=== PATIENT | female | born 1965 | race Caucasian/White ===

== ENCOUNTER 2018-05-01 03:02 | Emergency (ER) | payer OTHER, SELFPAY ==
[2018-05-01 03:10] VITALS: BP 171/91; PULSE 87; RESP 20; TEMP 36.1; O2SAT 97; BMI 31.3
[2018-05-01] MEDS: ONDANSETRON 4 MG/2 ML INJ IV ×2 (03:50→04:37)
[2018-05-01] MEDS: PANTOPRAZOLE 40 MG VIAL IV (03:50)
[2018-05-01] MEDS: HYDROMORPHONE 1 MG INJ 0.5 MG IV ×2 (03:50→05:40)
[2018-05-01 03:51] LABS: Add Manual Diff / Slide Review NO; Basophils Absolute Auto 0 /uL (0-100); Basophils Percent Auto 0.5 % (0-2); Eosinophils Absolute Auto 0 /uL (0-450); Hematocrit 47.5 % (36-46); Hemoglobin 16.5 g/dL (12.0-16.0); Lymphocytes Absolute Auto 700 /uL (1100-4500); Lymphocytes Percent Auto 8.2 % (25-40); Mean Corpuscular HGB Conc 34.7 % (30-36); Mean Corpuscular Hemoglobin 30.2 PG (26-34); Monocytes Absolute Auto 600 /uL (0-900); Monocytes Percent Auto 6.9 % (3-14); Neutrophils Absolute Auto 7600 /uL (1500-7000); Neutrophils Percent Auto 84.4 % (50-75); Platelet Count 269 X10^3/uL (150-400); Red Blood Cell Count 5.45 X10^6/uL (4.0-5.2); Red Cell Distribution Width 12.8 % (11.6-14.8)
[2018-05-01] MEDS: SODIUM CHLORIDE 0.9% 1,000 ML 1000 ML IV ×2 (03:51→04:53)
[2018-05-01 03:53] LABS: Alanine Aminotransferase 25 IU/L (9-52); Albumin 5.1 g/dL (3.5-5.0); Albumin Globulin Ratio 1.5 (1.0-2.8); Alkaline Phosphatase 104 U/L (38-126); Aspartate Aminotransferase 22 IU/L (14-36); BUN Creatinine Ratio 12.5 (6-22); Bilirubin Total 0.6 mg/dL (0.2-1.3); Blood Urea Nitrogen 10 mg/dL (7-17); Calcium 10.1 mg/dL (8.4-10.2); Carbon Dioxide 18 mmol/L (22-32); Chloride 109 mmol/L (98-107); Estimated Glomerular Filt Rate > 60.0 mL/min (>60); Globulin 3.5 g/dL (1.7-4.1); Glucose 174 mg/dL (70-100); HEMOLYSIS 18 (0-50); Lipase 99 U/L (23-300); Potassium 3.5 mmol/L (3.4-5.1); Sodium 145 mmol/L (137-145); Total Protein 8.6 g/dL (6.3-8.2)
[2018-05-01 04:22] VITALS: BP 151/74; PULSE 72; RESP 22; TEMP 36.8; O2SAT 100
--- NOTE | 2018-05-01 04:27 | ED.ABDPAIN ---
HPI - Abdominal Pain General Chief Complaint: Abdominal Pain Stated Complaint: vomiting, thinks she has norovirus Time Seen by Provider: 05/01/18 03:31 Source: patient Mode of arrival: ambulatory Limitations: no limitations History of Present Illness HPI narrative: PATIENT IS A 52-YEAR-OLD FEMALE WHO PRESENTS WITH SEVERE ABDOMINAL PAIN DIARRHEA AND VOMITING ONGOING FOR 2 DAYS. 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 She thinks that is what she has. She has vomited numerous times she has had numerous episodes of watery diarrhea. He she feels warm. Unable to keep anything down diffuse abdominal discomfort. MD complaint: abdominal pain Onset (ago): day(s) Pain Consistency: intermittent Location: diffuse Quality: cramping and stabbing Migration to: no migration Relieving factors: nothing Exacerbating factors: eating Related Data Previous Rx's Medication Instructions Recorded hydrocodone-acetaminophen [[place]] 2 tab PO Q6-8H PRN #10 tab 05/01/18 ondansetron 4 mg PO Q6-8H PRN #10 tab 05/01/18 Allergies Allergy/AdvReac Type Severity Reaction Status Date / Time shellfish derived Allergy Intermediate Verified 05/01/18 04:21 [SHELLFISH DERIVED] codeine [CODEINE] Allergy Unknown Verified 05/01/18 04:21 Penicillins [PENICILLINS] Allergy Unknown Verified 05/01/18 04:21 Tetracyclines [TETRACYCLINES] Allergy Unknown Verified 05/01/18 04:21 IV CONTRAST Allergy Intermediate Uncoded 05/01/18 04:21 Review of Systems Review of Systems GENERAL: Denies chills, fatigue, malaise, fever, sweats, travel HEENT: Denies sinus pain, ear pain, sore throat, difficulty swallowing, neck pain RESPIRATORY: Denies dyspnea, cough, wheezing, hemoptysis, sputum. CARDIOVASCULAR: Denies chest pain, palpitations, orthopnea, edema GASTROINTESTINAL: See HPI : Denies dysuria, frequency, incontinence, hematuria, urinary retention, flank pain. MUSCULOSKELETAL: Denies weakness, joint pain, or bony pain SKIN: No rash, no erythema, no pruritus NEUROLOGIC: Denies weakness, dizziness, headache, numbness, change in speech, confusion PSYCHIATRIC: No concerning psychosocial issues. 12 point review of systems is negative except for those stated above and HPI Exam Initial Vital Signs Initial Vital Signs: Vital Signs Temperature 97 F L 05/01/18 03:10 Pulse Rate 87 05/01/18 03:10 Respiratory Rate 20 05/01/18 03:10 Blood Pressure 171/91 H 05/01/18 03:10 Pulse Oximetry 97 05/01/18 03:10 GENERAL: Moaning appears in pain dry heaving HEENT: Head atraumatic,EOMI, pupils reactive, dry mucous membranes CARDIOVASCULAR: Regular rate and rhythm without murmurs, rubs or gallops. RESPIRATORY: Breath sounds equal bilaterally, no wheezes rales or rhonchi. ABDOMEN: Soft, diffuse tenderness no guarding or rebound no distension : No CVA tenderness EXTREMITIES: Normal range of motion, no clubbing or edema. Neurovascularly intact NEUROLOGICAL: Alert and oriented x4.Normal gait and speech. Cranial nerves II through XII grossly intact. SKIN: Warm, dry, no laceration, no petechiae, no rashes or lesions. Course Orders Ordered: Discontinued Medications Hydrocodone Bitart/Acetaminophen (Vicodin Prepack) 1 bottle MISC SEEINSTR ONE Stop: 05/01/18 05:38 Last Admin: 05/01/18 06:49 Dose: 1 bottle Diphenhydramine HCl (Benadryl) 25 mg IV NOW ONE Stop: 05/01/18 06:02 Last Admin: 05/01/18 06:06 Dose: 25 mg Hydromorphone HCl (Dilaudid) 0.5 mg IV NOW ONE Stop: 05/01/18 03:42 Last Admin: 05/01/18 03:50 Dose: 0.5 mg Hydromorphone HCl (Dilaudid) 0.5 mg IV NOW ONE Stop: 05/01/18 05:40 Last Admin: 05/01/18 05:40 Dose: 0.5 mg Sodium Chloride (Normal Saline 0.9%) 1,000 mls @ 1,000 mls/hr IV CONT SHEFALI Last Infusion: 05/01/18 04:52 Dose: 1,000 mls/hr Admin: 05/01/18 03:51 Dose: 1,000 mls/hr Sodium Chloride (Normal Saline 0.9%) 1,000 mls @ 1,000 mls/hr IV BOLUS ONE Stop: 05/01/18 05:27 Last Infusion: 05/01/18 06:50 Dose: 1,000 mls/hr Admin: 05/01/18 04:53 Dose: 1,000 mls/hr Ketorolac Tromethamine (Toradol) 30 mg IV NOW ONE Stop: 05/01/18 04:29 Last Admin: 05/01/18 04:37 Dose: 30 mg Methylprednisolone (Solu-Medrol 125 Mg Vial) 125 mg IV NOW ONE Stop: 05/01/18 06:02 Last Admin: 05/01/18 06:06 Dose: 125 mg Ondansetron HCl (Zofran) 4 mg IV NOW ONE Stop: 05/01/18 03:42 Last Admin: 05/01/18 03:50 Dose: 4 mg Ondansetron HCl (Zofran) 4 mg IV NOW ONE Stop: 05/01/18 04:29 Last Admin: 05/01/18 04:37 Dose: 4 mg Ondansetron HCl (Zofran Odt Prepack) 1 bottle MISC SEEINSTR ONE Stop: 05/01/18 05:38 Last Admin: 05/01/18 06:49 Dose: 1 bottle Pantoprazole Sodium (Protonix) 40 mg IV NOW ONE Stop: 05/01/18 03:42 Last Admin: 05/01/18 03:50 Dose: 40 mg Vital Signs - 8 hr 05/01/18 03:10 05/01/18 04:22 05/01/18 05:00 Temperature 97 F L 98.2 F 98.2 F Pulse Rate 87 72 72 Respiratory Rate 20 22 22 Blood Pressure 171/91 H 171/91 H Blood Pressure [Right Arm] 151/74 H Pulse Oximetry 97 100 100 05/01/18 06:24 Temperature Pulse Rate 17 L Respiratory Rate 60 H Blood Pressure Blood Pressure [Right Arm] 120/69 Pulse Oximetry 96 MDM - Abdominal Pain Lab Data Attestation: I reviewed the patient's lab results. Result diagrams: 05/01/18 03:11 05/01/18 03:11 Lab Results 05/01/18 05/01/18 Range/Units 03:11 03:11 WBC 9.0 (4.5-11.0) X10^3/uL RBC 5.45 H (4.0-5.2) X10^6/uL Hgb 16.5 H (12.0-16.0) g/dL Hct 47.5 H (36-46) % MCV 87.0 (80-100) fL MCH 30.2 (26-34) PG MCHC 34.7 (30-36) % RDW 12.8 (11.6-14.8) % Plt Count 269 (150-400) X10^3/uL Neut % (Auto) 84.4 H (50-75) % Lymph % (Auto) 8.2 L (25-40) % [place] % (Auto) 6.9 (3-14) % Eos % (Auto) 0.0 L (2-4) % Baso % (Auto) 0.5 (0-2) % Neut # (Auto) 7600 H (9087-0164) /uL Lymph # (Auto) 700 L (6041-0414) /uL [place] # (Auto) 600 (0-900) /uL Eos # (Auto) 0 (0-450) /uL Baso # (Auto) 0 (0-100) /uL Sodium 145 (137-145) mmol/L Potassium 3.5 (3.4-5.1) mmol/L Chloride 109 H (98-107) mmol/L Carbon Dioxide 18 L (22-32) mmol/L BUN 10 (7-17) mg/dL Creatinine 0.80 (0.52-1.04) mg/dL Estimated GFR > 60.0 (>60) mL/min BUN/Creatinine Ratio 12.5 (6-22) Glucose 174 H (70-100) mg/dL Calcium 10.1 (8.4-10.2) mg/dL Total Bilirubin 0.6 (0.2-1.3) mg/dL AST 22 (14-36) IU/L ALT 25 (9-52) IU/L Alkaline Phosphatase 104 (38-126) U/L Total Protein 8.6 H (6.3-8.2) g/dL Albumin 5.1 H (3.5-5.0) g/dL Globulin 3.5 (1.7-4.1) g/dL Albumin/Globulin Ratio 1.5 (1.0-2.8) Lipase 99 (23-300) U/L ABG Data Interpretation: shift commander report: A normal caliber appendix no free air bowel obstruction or gross intestinal inflammation. Stable pair cardial cyst. Cholecystectomy and hysterectomy. MDM Narrative Medical decision making narrative: Pain is better after Dilaudid. No further dry heaving but still feeling some nauseated need 2nd dose of Zofran. Bicarb is 18 she has been a 2nd L of IV fluids. She is tolerating some small sips of water but pain definitely is intermittent. No episodes of diarrhea while in ED. She had a few small sips of water pain quickly came back and intensified moaning and in severe pain again. More Dilaudid at this time will do CT for further evaluation of abdominal pain. Discharge Plan Departure Patient Disposition: Home Clinical Impression: Gastroenteritis Discharge Date/Time: 05/01/18 06:54 Interventions: ED Discharge Assessment Last Done: 05/01/18 07:00 Instructions: DI for Bacterial Gastroenteritis -- Adult Activity Restrictions/Additional Instructions: 1) You have been diagnosed with gastroenteritis There CT was unremarkable. Blood work did show some mild dehydration 2) What to do: Drink frequent but small amounts of fluids. I recommend Gatorade or a Gatorade-like product, as it has small amounts of sugar and salts that improve fluid retention. 3) Take medications as directed ZOFRAN 4 MG EVERY 6-8 HOURS IF NEEDED FOR NAUSEA OR VOMITING NORCO 1-2 TABLETS EVERY 6 HR IF NEEDED FOR SEVERE PAIN 4) Follow up with your primary care provider in 2-3 days 5) Return to ER if you should have any new or worsening symptoms such as, unable to hold down fluids despite use of anti-nausea medications and the small volume oral rehydration strategy. CONTROLLED SUBSTANCE DISCHARGE (Narcotoic/benzodiazepine/Flexeril/Phenergan) 1. You have been prescribed narcotic medications, it does have acetaminophen/Tylenol/paracetamol in it so do not take extra Tylenol or Tylenol containing products 2. Please understand that we cannot provide further refills of narcotics, benzodiazepines or controlled substances through the ED and her pain management will need to be through your provider. 3. While on these medications you cannot drive or operate heavy machinery. 4. You cannot sign legal documents or perform any duties such as this. 5. As long as you're taking opiate pain medications he should also be taking a stool softener such as Colace, Dulcolax, MiraLAX or prune juice, to help avoid constipation. Prescriptions: New hydrocodone-acetaminophen [[place]] 5-325 mg tablet 2 tab PO Q6-8H PRN (Reason: pain) Qty: 10 RF: 0 ondansetron 4 mg tablet,disintegrating 4 mg PO Q6-8H PRN (Reason: nausea and vomiting) Qty: 10 RF: 0 Referrals: Lynda Sawant MD [Primary Care Provider] -
[2018-05-01] MEDS: KETOROLAC 60 MG/2 ML VIAL 30 MG IV (04:37)
[2018-05-01 05:00] VITALS: BP 171/91; PULSE 72; RESP 22; TEMP 36.8; O2SAT 100; BMI 31.3
--- NOTE | 2018-05-01 05:39 | DI.CT.S_ITS ---
PROCEDURE: CT ABDOMEN PELVIS W CON INDICATIONS: severe abdominal pain TECHNIQUE: After the administration of intravenous contrast, 5 mm thick sections acquired from the diaphragm to the symphysis. 5 mm coronal and sagittal reformats were acquired. For radiation dose reduction, the following was used: automated exposure control, adjustment of mA and/or kV according to patient size. COMPARISON: [facility], CT, ABDOMEN/PELVIS WITH CONTRAST, 09/10/2016, 5:41. FINDINGS: Image quality: Excellent. ABDOMEN: Lung bases: Lung bases are clear. Heart size is normal. There is a 4.4 x 3.9 cm in posterior right epicardial cyst which is unchanged when compared with the study dated 11/10/16. A small hiatal hernia. Solid organs: Liver is normal in size and enhancement. Gallbladder is surgically absent. Biliary system is non dilated. Pancreas enhances normally. Spleen is normal in size and enhancement. No adrenal nodules. Kidneys demonstrate normal size and enhancement, without hydronephrosis. Peritoneum and bowel: Bowel loops demonstrate normal wall thickness and caliber. The appendix is thin walled and gas filled. No free fluid or air. Nodes and vessels: No retroperitoneal or mesenteric adenopathy by size criteria. Aorta and inferior vena cava are normal in size. Miscellaneous: No ventral hernias. PELVIS: Genitourinary: Bladder wall thickness is normal. Miscellaneous: No inguinal hernias or adenopathy. Bones: No suspicious bony lesions. No vertebral body compression fractures. IMPRESSION: 1. No acute intra-abdominal findings. Normal appendix. 2. Stable pericardial cyst. These findings are concordant with the overnight interpretation. Dictated by: Eve Yao M.D. on 05/01/2018 at 7:39 Approved by: Eve Yao M.D. on 05/01/2018 at 7:43
--- NOTE | 2018-05-01 05:53 | PC.NURSE ---
Pt states abd pain has increased since she drank water, aware.
[2018-05-01] MEDS: methylPREDNISolone 125 MG/2 ML VIAL IV (06:06)
[2018-05-01] MEDS: diphenhydrAMINE 50 MG/ML VIAL 25 MG IV (06:06)
[2018-05-01 06:24] VITALS: BP 120/69; PULSE 17; RESP 60; O2SAT 96
[2018-05-01] MEDS: HYDROCODONE/ACET 5/325 PREPACK 1 BOTTLE MISC (06:49)
[2018-05-01] MEDS: ONDANSETRON 4 MG ODT PREPACK 1 BOTTLE MISC (06:49)
== END 2018-05-01 06:54 | disposition home or self-care (01) ==
PROVIDERS: Emergency Provider Emergency Medicine; Family Provider Internal Medicine Geriatric Medicine; PCP Internal Medicine Geriatric Medicine
DX: K52.9 Noninfective gastroenteritis and colitis, unspecified (principal)
CPT/HCPCS: 36591; 74177; 80053; 83690; 85025; 96361; 96374; 96375; 96376; 99283; 99285; C9113; J1170; J1200; J1885; J2405; J2930; Q9967

== ENCOUNTER 2019-05-08 06:25 | Emergency (ER) | payer OTHER, SELFPAY ==
[2019-05-08 06:33] VITALS: BP 183/63; PULSE 67; RESP 22; TEMP 36.9; O2SAT 100; BMI 31.3
[2019-05-08] MEDS: ONDANSETRON 4 MG/2 ML INJ IV ×2 (06:42→07:00)
[2019-05-08] MEDS: KETOROLAC 60 MG/2 ML VIAL 30 MG IV (06:42)
[2019-05-08] MEDS: SODIUM CHLORIDE 0.9% 1,000 ML 1000 ML IV ×2 (06:43→07:35)
--- NOTE | 2019-05-08 06:50 | ED.GENADULT ---
HPI - General Adult <Abner Marinelli DO - Last Filed: 05/08/19 18:51> General Chief complaint: Abdominal Pain Stated complaint: vomiting and diarrhea all night long Time Seen by Provider: 05/08/19 06:28 Source: patient Mode of arrival: Ambulatory Limitations: no limitations History of Present Illness HPI narrative: 53-year-old female here for evaluation of abdominal pain, nausea, vomiting, diarrhea. States the symptoms have been going on for the past 36 hours but worsened over the past 12 hours. No recent travel. No recent antibiotic use. Has generalized abdominal pain. Related Data Previous Rx's Medication Instructions Recorded hydrocodone-acetaminophen [[place]] 2 tab PO Q6-8H PRN #10 tab 05/01/18 ondansetron 4 mg PO Q6-8H PRN #10 tab 05/01/18 Allergies Allergy/AdvReac Type Severity Reaction Status Date / Time shellfish derived Allergy Intermediate Verified 05/01/18 04:21 [SHELLFISH DERIVED] codeine [CODEINE] Allergy Unknown Verified 05/01/18 04:21 Penicillins [PENICILLINS] Allergy Unknown Verified 05/01/18 04:21 Tetracyclines [TETRACYCLINES] Allergy Unknown Verified 05/01/18 04:21 IV CONTRAST Allergy Intermediate Uncoded 05/01/18 04:21 Review of Systems <Abner Marinelli DO - Last Filed: 05/08/19 18:51> Constitutional Constitutional: Denies fever(s) Cardiovascular Cardiovascular: Denies chest pain and Denies dyspnea Respiratory Respiratory: Denies dyspnea Gastrointestinal Gastrointestinal: Reports abdominal pain, Reports diarrhea, Reports nausea and Reports vomiting Genitourinary Genitourinary: Denies dysuria Musculoskeletal Musculoskeletal: Denies myalgias and Denies arthralgias Integumentary/Breasts Skin/Breast: Denies lesions and Denies rash Neurologic Neurologic: Denies behavioral changes Psychiatric Psychiatric: Denies behavioral changes Hematologic/Lymphatic Hematologic/Lymphatic: Denies easy bleeding and Denies easy bruising Patient History <Abner Marinelli DO - Last Filed: 05/08/19 18:51> Medical History Cyclic vomiting syndrome (Inactive) Migraine (Inactive) UTI (urinary tract infection) (Inactive) Surgical History Status post cholecystectomy (Acute) Status post tubal ligation (Acute) Social History Smoking Status: Never smoker Smoking Status: Never smoker alcohol intake frequency: 0-2 drinks per day Substance Use Type: does not use Exam <Abner Marinelli DO - Last Filed: 05/08/19 18:51> Initial Vital Signs Initial Vital Signs: Vital Signs Temperature 98.4 F 05/08/19 06:33 Pulse Rate 67 05/08/19 06:33 Respiratory Rate 22 05/08/19 06:33 Blood Pressure 183/63 H 05/08/19 06:33 Pulse Oximetry 100 05/08/19 06:33 Const General: cooperative, No comfortable (Uncomfortable), well developed and well groomed Limitations: mental status not altered Resp Effort & Inspection: normal respiratory effort Auscultation: clear to auscultation bilaterally Cardio Rate: regular rate Rhythm: regular rhythm GI Inspection: non-distended Palpation: soft and tender (Diffusely tender) Back/Spine/Pelvis Back: No CVA tenderness Skin Lesions: no lesions Rashes: no rashes Neuro General: alert, awake and oriented x3 Cognition: normal cognition Speech: speech normal Extrem General: normal to inspection and capillary refill normal Psych Appearance: grossly normal and well kempt <Shannan Sol DO - Last Filed: 05/08/19 18:18> Initial Vital Signs Initial Vital Signs: Vital Signs Temperature 98.4 F 05/08/19 06:33 Pulse Rate 67 05/08/19 06:33 Respiratory Rate 22 05/08/19 06:33 Blood Pressure 183/63 H 05/08/19 06:33 Pulse Oximetry 100 05/08/19 06:33 Course <Abner Marinelli DO - Last Filed: 05/08/19 18:51> Orders Ordered: Discontinued Medications Hydromorphone HCl (Dilaudid) 0.5 mg IV NOW ONE Stop: 05/08/19 07:24 Last Admin: 05/08/19 07:35 Dose: 0.5 mg Documented by: SARAI Sodium Chloride (Normal Saline 0.9%) 1,000 mls @ 1,000 mls/hr IV BOLUS ONE Stop: 05/08/19 07:28 Last Infusion: 05/08/19 07:40 Dose: 0 mls/hr Documented by: Admin: 05/08/19 06:43 Dose: 1,000 mls/hr Documented by: SHANTEL Sodium Chloride (Normal Saline 0.9%) 1,000 mls @ 1,000 mls/hr IV BOLUS ONE Stop: 05/08/19 08:22 Last Infusion: 05/08/19 08:30 Dose: 0 mls/hr [facility]: [facility] Admin: 05/08/19 07:35 Dose: 1,000 mls/hr Documented by: SARAI Sodium Chloride (Normal Saline 0.9%) 1,000 mls @ 200 mls/hr IV CONT SHEFALI Last Infusion: 05/08/19 10:22 Dose: 0 mls/hr Documented by: Admin: 05/08/19 09:05 Dose: 200 mls/hr Documented by: SARAI Ketorolac Tromethamine (Toradol) 30 mg IV NOW ONE Stop: 05/08/19 06:30 Last Admin: 05/08/19 06:42 Dose: 30 mg Documented by: SHANTEL Ondansetron HCl (Zofran) 4 mg IV NOW ONE Stop: 05/08/19 06:30 Last Admin: 05/08/19 06:42 Dose: 4 mg Documented by: SHANTEL Ondansetron HCl (Zofran) 4 mg IV NOW ONE Stop: 05/08/19 06:54 Last Admin: 05/08/19 07:00 Dose: 4 mg Documented by: DEMOND Pantoprazole Sodium (Protonix) 40 mg IV NOW ONE Stop: 05/08/19 07:24 Last Admin: 05/08/19 07:35 Dose: 40 mg Document[facility]: [facility] Vital Signs Vital signs: Vital Signs - 8 hr 05/08/19 06:33 05/08/19 07:13 05/08/19 07:15 Temperature 98.4 F Pulse Rate 67 69 Respiratory Rate 22 18 Blood Pressure 183/63 H Blood Pressure [Left Arm] 135/64 149/72 H Pulse Oximetry 100 100 <Shannan Sol DO - Last Filed: 05/08/19 18:18> Orders Ordered: Discontinued Medications Hydromorphone HCl (Dilaudid) 0.5 mg IV NOW ONE Stop: 01/26/20 07:24 Last Admin: 05/08/19 07:35 Dose: 0.5 mg Documented by: SARAI Sodium Chloride (Normal Saline 0.9%) 1,000 mls @ 1,000 mls/hr IV BOLUS ONE Stop: 05/08/19 07:28 Last Infusion: 05/08/19 07:40 Dose: 0 mls/hr Documented by: Admin: 05/08/19 06:43 Dose: 1,000 mls/hr Documented by: SHANTEL Sodium Chloride (Normal Saline 0.9%) 1,000 mls @ 1,000 mls/hr IV BOLUS ONE Stop: 05/08/19 08:22 Last Infusion: 05/08/19 08:30 Dose: 0 mls/hr Documented by: Admin: 05/08/19 07:35 Dose: 1,000 mls/hr Documented by: SARAI Sodium Chloride (Normal Saline 0.9%) 1,000 mls @ 200 mls/hr IV CONT SHEFALI Last Infusion: 05/08/19 10:22 Dose: 0 mls/hr Documented by: Admin: 05/08/19 09:05 Dose: 200 mls/hr Documented by: SARAI Ketorolac Tromethamine (Toradol) 30 mg IV NOW ONE Stop: 05/08/19 06:30 Last Admin: 05/08/19 06:42 Dose: 30 mg Documented by: SHANTEL Ondansetron HCl (Zofran) 4 mg IV NOW ONE Stop: 05/08/19 06:30 Last Admin: 05/08/19 06:42 Dose: 4 mg Documented by: SHANTEL Ondansetron HCl (Zofran) 4 mg IV NOW ONE Stop: 05/08/19 06:54 Last Admin: 05/08/19 07:00 Dose: 4 mg Documented by: DEMOND Pantoprazole Sodium (Protonix) 40 mg IV NOW ONE Stop: 05/08/19 07:24 Last Admin: 05/08/19 07:35 Dose: 40 mg Documented by: SARAI Vital Signs Vital signs: Vital Signs - 8 hr 05/08/19 06:33 05/08/19 07:13 05/08/19 07:15 Temperature 98.4 F Pulse Rate 67 69 Respiratory Rate 22 18 Blood Pressure 183/63 H Blood Pressure [Left Arm] 135/64 149/72 H Pulse Oximetry 100 100 Medical Decision Making <Abner Marinelli, DO - Last Filed: 05/08/19 18:51> Lab Data Result diagrams: 05/08/19 06:45 05/08/19 09:45 Labs: Lab Results 05/08/19 05/08/19 05/08/19 Range/Units 06:45 06:45 09:45 WBC 13.6 H (4.5-11.0) X10^3/uL RBC 5.38 H (4.0-5.2) X10^6/uL Hgb 16.4 H (12.0-16.0) g/dL Hct 47.0 H (36-46) % MCV 87.4 (80-100) fL MCH 30.5 (26-34) PG MCHC 34.9 (30-36) % RDW 13.2 (11.6-14.8) % Plt Count 306 (150-400) X10^3/uL Neut % (Auto) 90.3 H (50-75) % Lymph % (Auto) 6.6 L (25-40) % [place] % (Auto) 2.9 L (3-14) % Eos % (Auto) 0.0 L (2-4) % Baso % (Auto) 0.2 (0-2) % Neut # (Auto) 07868 H (8452-1284) /uL Lymph # (Auto) 900 L (8235-2220) /uL [place] # (Auto) 400 (0-900) /uL Eos # (Auto) 0 (0-450) /uL Baso # (Auto) 0 (0-100) /uL Sodium 144 142 (137-145) mmol/L Potassium 3.6 3.9 (3.4-5.1) mmol/L Chloride 107 110 H (98-107) mmol/L Carbon Dioxide 16 L 19 L (22-32) mmol/L BUN 14 (7-17) mg/dL Creatinine 0.80 (0.52-1.04) mg/dL Estimated GFR > 60.0 (>60) mL/min BUN/Creatinine Ratio 17.5 (6-22) Glucose 184 H (70-100) mg/dL Calcium 10.3 H (8.4-10.2) mg/dL Total Bilirubin 0.6 (0.2-1.3) mg/dL AST 25 (14-36) IU/L ALT 31 (<35) IU/L Alkaline Phosphatase 111 (38-126) U/L Total Protein 9.0 H (6.3-8.2) g/dL Albumin 5.3 H (3.5-5.0) g/dL Globulin 3.7 (1.7-4.1) g/dL Albumin/Globulin Ratio 1.4 (1.0-2.8) Lipase 59 (23-300) U/L ECG Data Attestation: I personally reviewed and interpreted this ECG as follows: Prior ECG tracings: not available for review Interpretation: Sinus rhythm Ventricular rate of sixty-nine Normal axis Normal QRS Normal QTC No ST T wave changes MDM Narrative Medical decision making narrative: Patient afebrile. Is retching with in the ER. No diarrhea thus far. IV started. Fluids administered. Labs pending. Care turned over to Dr sol to follow-up and disposition. <Shannan Sol, DO - Last Filed: 05/08/19 18:18> Lab Data Lab results reviewed: Yes I reviewed the patient's lab results. Labs: Lab Results 05/08/19 05/08/19 05/08/19 Range/Units 06:45 06:45 09:45 WBC 13.6 H (4.5-11.0) X10^3/uL RBC 5.38 H (4.0-5.2) X10^6/uL Hgb 16.4 H (12.0-16.0) g/dL Hct 47.0 H (36-46) % MCV 87.4 (80-100) fL MCH 30.5 (26-34) PG MCHC 34.9 (30-36) % RDW 13.2 (11.6-14.8) % Plt Count 306 (150-400) X10^3/uL Neut % (Auto) 90.3 H (50-75) % Lymph % (Auto) 6.6 L (25-40) % [place] % (Auto) 2.9 L (3-14) % Eos % (Auto) 0.0 L (2-4) % Baso % (Auto) 0.2 (0-2) % Neut # (Auto) 22869 H (2930-9442) /uL Lymph # (Auto) 900 L (5652-0711) /uL [place] # (Auto) 400 (0-900) /uL Eos # (Auto) 0 (0-450) /uL Baso # (Auto) 0 (0-100) /uL Sodium 144 142 (137-145) mmol/L Potassium 3.6 3.9 (3.4-5.1) mmol/L Chloride 107 110 H (98-107) mmol/L Carbon Dioxide 16 L 19 L (22-32) mmol/L BUN 14 (7-17) mg/dL Creatinine 0.80 (0.52-1.04) mg/dL Estimated GFR > 60.0 (>60) mL/min BUN/Creatinine Ratio 17.5 (6-22) Glucose 184 H (70-100) mg/dL Calcium 10.3 H (8.4-10.2) mg/dL Total Bilirubin 0.6 (0.2-1.3) mg/dL AST 25 (14-36) IU/L ALT 31 (<35) IU/L Alkaline Phosphatase 111 (38-126) U/L Total Protein 9.0 H (6.3-8.2) g/dL Albumin 5.3 H (3.5-5.0) g/dL Globulin 3.7 (1.7-4.1) g/dL Albumin/Globulin Ratio 1.4 (1.0-2.8) Lipase 59 (23-300) U/L [facility] [place] Narrative Medical decision making narrative: Patient signed out to me by Dr. Marinelli seen and evaluated by myself. Sandy has started helping she is feeling little bit less nauseous but has diffuse abdominal tenderness no localization. She says she is having multiple episodes of watery claylike diarrhea. She says that this is similar to what she had when she had the norovirus and also when she her gallbladder removed. Patient tolerating oral fluids pain is significantly improved blood work is rechecked and bicarb has improved to her baseline. Discharge Plan Departure Patient Disposition: Home Clinical Impression: Gastroenteritis Discharge Date/Time: 05/08/19 10:23 Instructions: DI for Viral Gastroenteritis -- Adult Activity Restrictions/Additional Instructions: 1) You have been diagnosed with gastroenteritis 2) What to do: Drink frequent but small amounts of fluids. I recommend Gatorade or a Gatorade-like product, as it has small amounts of sugar and salts that improve fluid retention. 3) Take medications as directed Zofran 4-8 mg every 8 hours if needed for nausea or vomiting 4) Follow up with your primary care provider in 2-3 days [and follow up with ortho, urology etc] 5) Return to ER if you should have any new or worsening symptoms such as, unable to hold down fluids despite use of anti-nausea medications and the small volume oral rehydration strategy. Prescriptions: No Action hydrocodone-acetaminophen [[place]] 5-325 mg tablet 2 tab PO Q6-8H PRN (Reason: pain) Qty: 10 RF: 0 ondansetron 4 mg tablet,disintegrating 4 mg PO Q6-8H PRN (Reason: nausea and vomiting) Qty: 10 RF: 0 Referrals: Lynda Sawant MD [Primary Care Provider] -
[2019-05-08 07:02] LABS: Add Manual Diff / Slide Review NO; Albumin 5.3 g/dL (3.5-5.0); Albumin Globulin Ratio 1.4 (1.0-2.8); Alkaline Phosphatase 111 U/L (38-126); BUN Creatinine Ratio 17.5 (6-22); Basophils Absolute Auto 0 /uL (0-100); Basophils Percent Auto 0.2 % (0-2); Bilirubin Total 0.6 mg/dL (0.2-1.3); Blood Urea Nitrogen 14 mg/dL (7-17); Calcium 10.3 mg/dL (8.4-10.2); Carbon Dioxide 16 mmol/L (22-32); Chloride 107 mmol/L (98-107); Eosinophils Absolute Auto 0 /uL (0-450); Estimated Glomerular Filt Rate > 60.0 mL/min (>60); Globulin 3.7 g/dL (1.7-4.1); Glucose 184 mg/dL (70-100); HEMOLYSIS < 15 (0-50); Hemoglobin 16.4 g/dL (12.0-16.0); Lipase 59 U/L (23-300); Lymphocytes Absolute Auto 900 /uL (1100-4500); Lymphocytes Percent Auto 6.6 % (25-40); Mean Corpuscular HGB Conc 34.9 % (30-36); Mean Corpuscular Hemoglobin 30.5 PG (26-34); Mean Corpuscular Volume 87.4 fL (80-100); Monocytes Absolute Auto 400 /uL (0-900); Monocytes Percent Auto 2.9 % (3-14); Neutrophils Absolute Auto 12300 /uL (1500-7000); Neutrophils Percent Auto 90.3 % (50-75); Platelet Count 306 X10^3/uL (150-400); Potassium 3.6 mmol/L (3.4-5.1); Red Blood Cell Count 5.38 X10^6/uL (4.0-5.2); Red Cell Distribution Width 13.2 % (11.6-14.8); Sodium 144 mmol/L (137-145); White Blood Cell Count 13.6 X10^3/uL (4.5-11.0)
[2019-05-08 07:08] LABS: Aspartate Aminotransferase 25 IU/L (14-36)
[2019-05-08 07:09] LABS: Alanine Aminotransferase 31 IU/L (<35)
[2019-05-08 07:13] VITALS: BP 135/64
[2019-05-08 07:15] VITALS: BP 149/72; PULSE 69; RESP 18; O2SAT 100
[2019-05-08] MEDS: HYDROMORPHONE 0.5 MG INJ IV (07:35)
[2019-05-08] MEDS: PANTOPRAZOLE 40 MG VIAL IV (07:35)
--- NOTE | 2019-05-08 08:39 | PC.NURSE ---
pt has stopped dry heaving and states that she feels much better, no pain at this time like night and day per patient
--- NOTE | 2019-05-08 08:43 | PC.NURSE ---
po challenge initiated with crackers and anthony gilma
[2019-05-08] MEDS: SODIUM CHLORIDE 0.9% 1,000 ML 200 ML IV (09:05)
[2019-05-08 09:17] VITALS: BP 125/69; PULSE 91; O2SAT 97
[2019-05-08 10:04] LABS: Carbon Dioxide 19 mmol/L (22-32); Chloride 110 mmol/L (98-107); HEMOLYSIS < 15 (0-50); Potassium 3.9 mmol/L (3.4-5.1); Sodium 142 mmol/L (137-145)
== END 2019-05-08 10:23 | disposition home or self-care (01) ==
PROVIDERS: Emergency Medicine; Emergency Provider Emergency Medicine; PCP Internal Medicine Geriatric Medicine
DX: K52.9 Noninfective gastroenteritis and colitis, unspecified (principal)
CPT/HCPCS: 36415; 80051; 80053; 83690; 85025; 96361; 96374; 96375; 96376; 99284; 99285; C9113; J1170; J1885; J2405

== ENCOUNTER 2020-06-11 18:43 | Emergency (ER) | payer OTHER, SELFPAY ==
[2020-06-11] VITALS (10 sets, daily range): BP systolic 144–193; BP diastolic 65–89; PULSE 60–90; RESP 16; TEMP 36.6; O2SAT 91–100; BMI 31.3
[2020-06-11 19:26] LABS: Add Manual Diff / Slide Review NO; Basophils Absolute Auto 100 /uL (0-100); Basophils Percent Auto 0.7 % (0-2); Eosinophils Absolute Auto 0 /uL (0-450); Eosinophils Percent Auto 0.1 % (2-4); Hematocrit 45.4 % (36-46); Hemoglobin 15.2 g/dL (12.0-16.0); Lymphocytes Absolute Auto 2400 /uL (1100-4500); Lymphocytes Percent Auto 14.6 % (25-40); Mean Corpuscular HGB Conc 33.5 % (30-36); Mean Corpuscular Hemoglobin 29.8 PG (26-34); Mean Corpuscular Volume 88.9 fL (80-100); Monocytes Absolute Auto 400 /uL (0-900); Monocytes Percent Auto 2.5 % (3-14); Neutrophils Absolute Auto 13400 /uL (1500-7000); Neutrophils Percent Auto 82.1 % (50-75); Platelet Count 302 X10^3/uL (150-400); Red Blood Cell Count 5.11 X10^6/uL (4.0-5.2); Red Cell Distribution Width 13.1 % (11.6-14.8); White Blood Cell Count 16.3 X10^3/uL (4.5-11.0)
[2020-06-11 19:31] LABS: INR 1.1 (0.9-1.3); Prothrombin Time 12.3 SECONDS (10.1-12.7)
[2020-06-11 19:34] LABS: PTT Partial Thromboplastin Tim 31 SECONDS (26.4-36.2)
[2020-06-11 19:35] LABS: Alanine Aminotransferase 24 IU/L (<35); Albumin 4.9 g/dL (3.5-5.0); Albumin Globulin Ratio 1.6 (1.0-2.8); Alkaline Phosphatase 131 U/L (38-126); Aspartate Aminotransferase 22 IU/L (14-36); BUN Creatinine Ratio 19.3 (6-22); Bilirubin Total 0.5 mg/dL (0.2-1.3); Blood Urea Nitrogen 17 mg/dL (7-17); Calcium 10.4 mg/dL (8.4-10.2); Carbon Dioxide 22 mmol/L (22-32); Chloride 109 mmol/L (98-107); Estimated Glomerular Filt Rate > 60.0 mL/min (>60); Globulin 3.1 g/dL (1.7-4.1); Glucose 206 mg/dL (70-100); HEMOLYSIS < 15 (0-50); Lipase 174 U/L (23-300); Potassium 3.6 mmol/L (3.4-5.1); Sodium 142 mmol/L (137-145)
[2020-06-11] MEDS: ONDANSETRON 4 MG/2 ML INJ (19:42)
[2020-06-11] MEDS: SODIUM CHLORIDE 0.9% 1,000 ML 1000 ML IV ×2 (19:42→20:26)
[2020-06-11] MEDS: KETOROLAC 60 MG/2 ML VIAL 15 MG IV (20:18)
[2020-06-11] MEDS: LORazepam 2 MG/ML INJ 0.5 MG IV (20:18)
--- NOTE | 2020-06-11 20:30 | PC.NURSE ---
reported to dr gomez patient is sweating, in pain and still having dry heaves after the zofran dose. dr. gomez provided order for ativan and toradol provided as ordered. In room asking patient if she tolerated pre medicating for IV contrast that she did in the past. pt said she thinks so but doesn't remember. I explained i thought it could be an issue with the pancreas because it started while eating, but the labs seem to be ok there, i then asked if patient uses marijuana? spouse responded she doesn't use it, he questioned why I would I ask, i said its legal here and some people use it, I am just looking for ideas to be helpful in treating her. pt spouse responded back with i'll just ask the dopers, i stepped out of the room. -btoner.
[2020-06-11] MEDS: HYDROMORPHONE 0.5 MG INJ IV (21:33)
--- NOTE | 2020-06-11 22:09 | ED.NAVMDI ---
HPI - Nausea/Vomiting/Diarrhea General Chief complaint: Nausea/Vomiting/Diarrhea Stated complaint: N/V/D, Fever and Chills Time Seen by Provider: 06/11/20 20:09 Source: patient and family Limitations: no limitations History of Present Illness HPI Narrative: This is a 54-year-old female comes to the emergency department with complaint abdominal pain, nausea vomiting and diarrhea as well as chills since Thursday. Patient states she has had similar episodes in the past. There does not seem to be any clear causation. She did have episodes frequently before she had a cholecystectomy and that decreased the frequency but she still occasionally has episodes. She does not always have severe enought that she will present to be evaluated in the emergency department. She had an episode approximately a year ago when she was last seen here. She denies any syncope. She denies any chest pain or pressure, no shortness of breath. She states developed abdominal pain that started after she was vomiting and dry heaving for an extended period of time. She states that she does have some back and flank pain. She denies any swelling in her extremities. She denies any melena or hematochezia. She states this episode started almost immediately after having a beer and some fish tacos. Per patient and her she does not drink alcohol regularly. She states she is not on any other medications regularly. She has also had unilateral salpingo oophorectomy secondary to possible ovarian torsion. She follows with Dr. Sawant. Denies tobacco, occasional alcohol, denies illicit. She does have an allergy to iodine but states when she is pretreated with Benadryl and Solu-Medrol she tolerates contrast without issue. Related Data Previous Rx's Medication Instructions Recorded hydrocodone-acetaminophen [[place]] 2 tab PO Q6-8H PRN #10 tab 05/01/18 ondansetron 4 mg PO Q6-8H PRN #10 tab 05/01/18 Allergies Allergy/AdvReac Type Severity Reaction Status Date / Time shellfish derived Allergy Intermediate Verified 05/01/18 04:21 [SHELLFISH DERIVED] codeine [CODEINE] Allergy Unknown Verified 05/01/18 04:21 Penicillins [PENICILLINS] Allergy Unknown Verified 05/01/18 04:21 Tetracyclines [TETRACYCLINES] Allergy Unknown Verified 05/01/18 04:21 IV CONTRAST Allergy Intermediate Uncoded 05/01/18 04:21 Review of Systems Review of Systems ROS Unobtainable: All systems reviewed & are unremarkable except as noted in HPI and below Patient History Medical History (Updated 06/12/20 @ 00:55 by Monei Serna DO) Cyclic vomiting syndrome Migraine UTI (urinary tract infection) Surgical History Status post cholecystectomy Status post tubal ligation Social History Smoking Status: Never smoker Smoking Status: Never smoker alcohol intake frequency: 0-2 drinks per day Substance Use Type: does not use Exam Narrative Exam Narrative: GENERAL: Alert and oriented x three, obese female in moderate distress. HEENT: Head normocephalic, atraumatic, EOMI, pupils reactive, face symmetric, moist mucous membranes NECK: Supple, full range of motion CARDIOVASCULAR: Regular rate and rhythm without murmurs, rubs or gallops. RESPIRATORY: Breath sounds equal bilaterally, no wheezes rales or rhonchi. ABDOMEN: Soft, nontender but does increase patient's nausea with palpation particularly epigastric region. Normoactive bowel sounds all 4 quadrants. No guarding or rebound, rigidity, no mass. Nondistended. No bruit. : No CVA tenderness EXTREMITIES: Normal range of motion, no clubbing or edema. Neurovascularly intact. 2+ pulses bilateral lower extremities. NEUROLOGICAL: Cranial nerves II through XII grossly intact. Moving all extremities SKIN: Warm, dry, no petechiae, no rashes or lesions. Initial Vital Signs Initial Vital Signs: Vital Signs Temperature 97.9 F 06/11/20 19:00 Pulse Rate 67 06/11/20 19:00 Respiratory Rate 16 06/11/20 19:00 Blood Pressure 193/89 H 06/11/20 19:00 Pulse Oximetry 100 06/11/20 19:00 Course Orders Ordered: ED Orders 06/11/20 19:20 Complete Blood Count AUTO DIFF Stat Comprehensive Metabolic Panel Stat Lipase Stat Partial Thromboplastin Time Stat Prothrombin Time INR Stat Troponin & CK Cardiac Panel Stat 06/11/20 19:43 EKG-12 Lead Stat 06/11/20 22:25 CT abdomen pelvis w con Stat 06/11/20 23:25 Test Urine Stat Urine Microscopic Stat Discontinued Medications Diphenhydramine HCl (Diphenhydramine 50 Mg/Ml Vial) 50 mg IV NOW ONE Stop: 06/11/20 22:26 Last Admin: 06/11/20 22:33 Dose: 50 mg Documented by: REEMA Hydromorphone HCl (Hydromorphone 0.5 Mg Inj) 0.5 mg IV NOW ONE Stop: 06/11/20 21:29 Last Admin: 06/11/20 21:33 Dose: 0.5 mg Documented by: REEMA Hydromorphone HCl (Hydromorphone 0.5 Mg Inj) 0.5 mg IV NOW ONE Stop: 06/11/20 23:41 Last Admin: 06/12/20 00:04 Dose: 0.5 mg Documented by: REEMA Sodium Chloride (Normal Saline 0.9%) 1,000 mls @ 1,000 mls/hr IV BOLUS ONE Stop: 06/11/20 20:38 Last Infusion: 06/11/20 21:27 Dose: 0 mls/hr Documented by: Admin: 06/11/20 19:42 Dose: 1,000 mls/hr Documented by: MATT Sodium Chloride (Normal Saline 0.9%) 1,000 mls @ 1,000 mls/hr IV BOLUS ONE Stop: 06/11/20 21:09 Last Infusion: 06/11/20 21:28 Dose: 0 mls/hr Documented by: Admin: 06/11/20 20:26 Dose: 1,000 mls/hr Documented by: MATT Ketorolac Tromethamine (Ketorolac 60 Mg/2 Ml Vial) 15 mg IV NOW ONE Stop: 06/11/20 20:11 Last Admin: 06/11/20 20:18 Dose: 15 mg Documented by: MATT Lorazepam (Lorazepam 2 Mg/Ml Inj) 0.5 mg IV NOW ONE Stop: 06/11/20 20:11 Last Admin: 06/11/20 20:18 Dose: 0.5 mg Documented by: MATT Methylprednisolone (Methylprednisolone 125 Mg/2 Ml Vial) 125 mg IV NOW ONE Stop: 06/11/20 22:26 Last Admin: 06/11/20 22:33 Dose: 125 mg Documented by: REEMA Ondansetron HCl (Ondansetron 4 Mg/2 Ml Inj) 4 mg IV NOW ONE Stop: 06/11/20 23:41 Last Admin: 06/12/20 00:04 Dose: 4 mg Documented by: REEMA Ondansetron HCl (Ondansetron 4 Mg Odt Prepack) 1 bottle MISC SEEINSTR ONE Stop: 06/12/20 01:33 Last Admin: 06/12/20 01:49 Dose: 1 bottle Documented by: REEMA Reevaluation(s) Reevaluation #1: Patient is nauseated, worsened after palpation during exam. Time: 00:55 Reevaluation #2: Patient is feeling much better at this time. We reviewed she states that she has been told she had a cyst on her heart initially the age of 25 and she has had workups in the past including echo. We discussed our findings today and no clear cause for her symptoms. She has had colonoscopies, she has had multiple workups without clear findings of her symptoms. Time: 01:33 Consultations Consultation #1: Dr. Rao, recommends follow-up with echo. If patient is discharged home she can do this as outpatient. If she is admitted for her nausea and vomiting they recommend having it done here prior to discharge. Time: 00:55 Vital Signs Vital signs: Vital Signs - 8 hr 06/11/20 21:36 06/11/20 21:44 06/11/20 22:00 Pulse Rate 63 67 62 Blood Pressure 155/65 H 152/86 H Pulse Oximetry 99 99 93 06/11/20 22:30 06/11/20 22:31 06/11/20 22:57 Pulse Rate 60 62 90 Blood Pressure 155/74 H 163/81 H Pulse Oximetry 95 94 97 06/11/20 23:00 06/11/20 23:01 06/11/20 23:30 Pulse Rate 78 83 72 Blood Pressure 144/79 H Pulse Oximetry 91 96 93 06/12/20 00:00 06/12/20 00:07 06/12/20 00:30 Pulse Rate 67 73 98 H Blood Pressure 158/88 H 124/58 L Pulse Oximetry 98 98 95 06/12/20 01:00 06/12/20 01:30 06/12/20 01:43 Pulse Rate 101 H 103 H Blood Pressure 106/53 L 104/52 L 133/68 Pulse Oximetry 93 95 95 MDM - Nausea/Vomiting/Diarrhea Lab Data Attestation: I reviewed the patient's lab results. Result diagrams: 06/11/20 19:20 06/11/20 19:20 Labs: Lab Results 06/11/20 06/11/20 06/11/20 Range/Units 19:20 19:20 19:20 WBC 16.3 H (4.5-11.0) X10^3/uL RBC 5.11 (4.0-5.2) X10^6/uL Hgb 15.2 (12.0-16.0) g/dL Hct 45.4 (36-46) % MCV 88.9 (80-100) fL MCH 29.8 (26-34) PG MCHC 33.5 (30-36) % RDW 13.1 (11.6-14.8) % Plt Count 302 (150-400) X10^3/uL Neut % (Auto) 82.1 H (50-75) % Lymph % (Auto) 14.6 L (25-40) % [place] % (Auto) 2.5 L (3-14) % Eos % (Auto) 0.1 L (2-4) % Baso % (Auto) 0.7 (0-2) % Neut # (Auto) 87459 H (5230-0706) /uL Lymph # (Auto) 2400 (0058-3019) /uL [place] # (Auto) 400 (0-900) /uL Eos # (Auto) 0 (0-450) /uL Baso # (Auto) 100 (0-100) /uL PT 12.3 (10.1-12.7) SECONDS INR 1.1 (0.9-1.3) APTT 31 (26.4-36.2) SECONDS Sodium 142 (137-145) mmol/L Potassium 3.6 (3.4-5.1) mmol/L Chloride 109 H (98-107) mmol/L Carbon Dioxide 22 (22-32) mmol/L BUN 17 (7-17) mg/dL Creatinine 0.88 (0.52-1.04) mg/dL Estimated GFR > 60.0 (>60) mL/min BUN/Creatinine Ratio 19.3 (6-22) Glucose 206 H (70-100) mg/dL Calcium 10.4 H (8.4-10.2) mg/dL Total Bilirubin 0.5 (0.2-1.3) mg/dL AST 22 (14-36) IU/L ALT 24 (<35) IU/L Alkaline Phosphatase 131 H (38-126) U/L Total Creatine Kinase (30-135) U/L CK-MB (CK-2) (<2.37) ng/mL CK-MB (CK-2) Rel Index (1.5-5.0) % Troponin I (0.01-0.034) ng/mL Total Protein 8.0 (6.3-8.2) g/dL Albumin 4.9 (3.5-5.0) g/dL Globulin 3.1 (1.7-4.1) g/dL Albumin/Globulin Ratio 1.6 (1.0-2.8) Lipase 174 (23-300) U/L Urine RBC (0-5/HPF) Urine WBC (0-5/HPF) Ur Squamous Epith Cells (0-5/HPF) Urine Bacteria (None) Hyaline Casts (None) Ur Culture Indicated? Urine Test (Negative) 06/11/20 06/11/20 06/11/20 Range/Units 19:20 23:25 23:25 WBC (4.5-11.0) X10^3/uL RBC (4.0-5.2) X10^6/uL Hgb (12.0-16.0) g/dL Hct (36-46) % MCV (80-100) fL MCH (26-34) PG MCHC (30-36) % RDW (11.6-14.8) % Plt Count (150-400) X10^3/uL Neut % (Auto) (50-75) % Lymph % (Auto) (25-40) % [place] % (Auto) (3-14) % Eos % (Auto) (2-4) % Baso % (Auto) (0-2) % Neut # (Auto) (1468-3423) /uL Lymph # (Auto) (8184-4242) /uL [place] # (Auto) (0-900) /uL Eos # (Auto) (0-450) /uL Baso # (Auto) (0-100) /uL PT (10.1-12.7) SECONDS INR (0.9-1.3) APTT (26.4-36.2) SECONDS Sodium (137-145) mmol/L Potassium (3.4-5.1) mmol/L Chloride (98-107) mmol/L Carbon Dioxide (22-32) mmol/L BUN (7-17) mg/dL Creatinine (0.52-1.04) mg/dL Estimated GFR (>60) mL/min BUN/Creatinine Ratio (6-22) Glucose (70-100) mg/dL Calcium (8.4-10.2) mg/dL Total Bilirubin (0.2-1.3) mg/dL AST (14-36) IU/L ALT (<35) IU/L Alkaline Phosphatase (38-126) U/L Total Creatine Kinase 115 (30-135) U/L CK-MB (CK-2) 1.58 (<2.37) ng/mL CK-MB (CK-2) Rel Index 1.4 L (1.5-5.0) % Troponin I < 0.012 (0.01-0.034) ng/mL Total Protein (6.3-8.2) g/dL Albumin (3.5-5.0) g/dL Globulin (1.7-4.1) g/dL Albumin/Globulin Ratio (1.0-2.8) Lipase (23-300) U/L Urine RBC 0-1/hpf (0-5/HPF) Urine WBC 0-1/hpf (0-5/HPF) Ur Squamous Epith Cells 1-5 /hpf (0-5/HPF) Urine Bacteria Few (2-10) H (None) Hyaline Casts 0-1/lpf (None) Ur Culture Indicated? Cult not indicated Urine Test Negative (Negative) Urine Dip Bedside Urine Glucose 250 mg/dl Bedside Urine Bilirubin - Negative Bedside Urine Ketone +++ 80 Urine Specific [place] 1.025 Bedside Urine Occult Blood +/- Bedside Urine pH 6.0 Bedside Urine Protein - Negative Bedside Urine Urobilinogen - Negative Bedside Urine Nitrite - Negative Bedside Urine Leukocytes - Negative Esterase Imaging Data CT scan - abdomen/pelvis: Radiologist's Impression: No bowel obstruction or abnormal fluid collection, pneumatosis or pneumoperitoneum. Appendix is unremarkable. There are few scattered colonic diverticula with no acute inflammatory changes. There is a small hiatal hernia. No hydronephrosis. There is prominent urinary bladder distention to 14 cm absent uterus. Adnexal regions are unremarkable. No acute abnormalities the remaining solid organs. There are fatty changes in the liver. Absent gallbladder. Abdominal aorta is normal caliber with patent SMA. Scattered atelectasis or scarring in the included lower lung miles. Partial imaging of a circumscribed water attenuation right pericardial lesion measuring at least 4 cm of barely perceptible dinero. No acute osseous abnormalities. Prominent degenerative changes at L5-S1. ECG Data Attestation: I personally reviewed and interpreted this ECG as follows: Interpretation: Sinus rhythm with occasional PVC, rate 61 OR 160 QRS of 110 and QTC of 464. No ST elevation depression appreciated. Patient does have PVC. She has prior EKG from 05/08/2019 which appears similar. [facility] Narrative Medical decision making narrative: This is a 54-year-old female who comes in with acute on chronic nausea, diarrhea and abdominal pain. Patient states she will typically start with nausea and vomiting and then developed abdominal pain. She has had episodes intermittently over the years. She states she has had multiple workups with no causation found. Patient's labs today do show leukocytosis although this may possibly be reactive. No other clear infectious source is found. Fluids elevated what ordered a electrolytes are otherwise normal with normal renal function. Patient's glucose is 206 and in the setting of several days of nausea and vomiting with ketones there is possibility she is diabetic. She has suspicions that she may be but has not followed up this specifically. Calcium is elevated, alk-phos is very mildly elevated with no other LFT changes. Troponin is negative with no acute EKG findings. An urine shows ketones but no signs of infection. Required 2 L of fluid before she was able to give a urine and did appear dehydrated initially. Patient's imaging does show a probable 4 cm right pericardial cyst some nonspecific urinary bladder distention but has been able to urinate in the department. Patient is aware of her pericardial cyst and states she has been seen for this in the past over the years. No glucose of cause of her symptoms today was found. She was not able to give a stool sample for evaluation. Patient states she feels significantly better after fluids, antinausea and pain medication here in the department. Discharge Plan Departure Patient Disposition: Home Clinical Impression: Abdominal pain, vomiting, and diarrhea, Pericardial cyst Activity Restrictions/Additional Instructions: Follow up with your physician or cardiology regarding the pericardial cyst seen on your imaging. This was discussed with cardiology, they recommend an ECHO as an outpatient for follow up if you have not already had this followed up. It was noted on your lab work today that your sugar is somewhat elevated, you may which to follow up with your physician for further evaluation for possible diabetes Take anti-nausea as prescribed, 1 tablet every 8 hours as needed for nausea. Return to the ER for persistent vomiting, lightheadedness or passing out, worsening abdominal pain, inability to make urine, black or bloody stools, severe worsening abdominal or flank pain or other new or concerning symptoms. Prescriptions: No Action hydrocodone-acetaminophen [[place]] 5-325 mg tablet 2 tab PO Q6-8H PRN (Reason: pain) Qty: 10 RF: 0 ondansetron 4 mg tablet,disintegrating 4 mg PO Q6-8H PRN (Reason: nausea and vomiting) Qty: 10 RF: 0
--- NOTE | 2020-06-11 22:25 | DI.CT.S_ITS ---
PROCEDURE: CT ABDOMEN PELVIS W CON INDICATIONS: vomiting/diarrhea x 3 days, hx cholecystitis TECHNIQUE: After the administration of intravenous contrast, 5 mm thick sections acquired from the diaphragm to the symphysis. 5 mm coronal and sagittal reformats were acquired. For radiation dose reduction, the following was used: automated exposure control, adjustment of mA and/or kV according to patient size. COMPARISON: [facility], CT, CT ABDOMEN PELVIS W CON, 05/01/2018, 5:46. FINDINGS: Image quality: Excellent. ABDOMEN: Lung bases: Lung bases are clear. Heart size is normal. Stable benign cyst adjacent to the heart, possibly a pericardial cyst, measuring 4.6 x 4.0 cm. Solid organs: Liver is normal in size and enhancement. Gallbladder remote cholecystectomy.. Biliary system is non dilated. Pancreas enhances normally. Spleen is normal in size and enhancement. No adrenal nodules. Kidneys demonstrate normal size and enhancement, without hydronephrosis. Peritoneum and bowel: Bowel loops demonstrate normal wall thickness and caliber. No free fluid or air. Nodes and vessels: No retroperitoneal or mesenteric adenopathy by size criteria. Aorta and inferior vena cava are normal in size. Miscellaneous: No ventral hernias. PELVIS: Genitourinary: Bladder wall thickness is normal. Miscellaneous: No inguinal hernias or adenopathy. Uterus is surgically absent. Bones: No suspicious bony lesions. No vertebral body compression fractures. IMPRESSION: 1. Benign stable pericardial cyst. 2. No evidence of acute abdominal process. 3. Remote cholecystectomy and hysterectomy. Comment: Final report is concordant with preliminary interpretation provided by [facility]. Dictated by: Raoul Barton M.D. on 06/12/2020 at 7:58 Approved by: Raoul Barton M.D. on 06/12/2020 at 8:02
[2020-06-11] MEDS: diphenhydrAMINE 50 MG/ML VIAL IV (22:33)
[2020-06-11] MEDS: methylPREDNISolone 125 MG/2 ML VIAL IV (22:33)
--- NOTE | 2020-06-11 22:42 | PC.NURSE ---
Pt has been premedicated
[2020-06-11 23:39] LABS: Pregnancy Test Urine Negative (Negative)
[2020-06-11 23:55] LABS: Creatine Kinase 115 U/L (30-135)
[2020-06-12] VITALS: PULSE 67; O2SAT 98
[2020-06-12 00:04] LABS: Bacteria Urine Few (2-10); RBC Urine 0-1/HPF (0-5/HPF); Squamous Epithelial Cell Urine 1-5 /HPF (0-5/HPF); WBC Urine 0-1/HPF (0-5/HPF)
[2020-06-12] MEDS: HYDROMORPHONE 0.5 MG INJ IV (00:04)
[2020-06-12] MEDS: ONDANSETRON 4 MG/2 ML INJ IV (00:04)
[2020-06-12 00:05] LABS: Culture Indicated Urine Cult Not Indicated; Hyaline Casts Urine 0-1/LPF
[2020-06-12 00:07] VITALS: BP 158/88; PULSE 73; O2SAT 98
[2020-06-12 00:08] LABS: Troponin I < 0.012 ng/mL (0.01-0.034)
[2020-06-12 00:11] LABS: CKMB % Relative Index 1.4 % (1.5-5.0); Creatine Kinase MB 1.58 ng/mL (<2.37)
[2020-06-12 00:30] VITALS: BP 124/58; PULSE 98; O2SAT 95
[2020-06-12 01:00] VITALS: BP 106/53; PULSE 101; O2SAT 93
[2020-06-12 01:30] VITALS: BP 104/52; O2SAT 95
[2020-06-12 01:43] VITALS: BP 133/68; PULSE 103; O2SAT 95
[2020-06-12] MEDS: ONDANSETRON 4 MG ODT PREPACK 1 BOTTLE MISC (01:49)
== END 2020-06-12 02:01 | disposition home or self-care (01) ==
PROVIDERS: Emergency Provider Emergency Medicine
DX: R10.9 Unspecified abdominal pain (principal); R11.2 Nausea with vomiting, unspecified; Q24.8 Other specified congenital malformations of heart; D72.829 Elevated white blood cell count, unspecified
CPT/HCPCS: 36415; 74177; 80053; 81003; 81015; 81025; 82550; 82553; 83690; 84484; 85025; 85610; 85730; 93005; 96361; 96374; 96375; 96376; 99284; J1170; J1200; J1885; J2060; J2405; J2930; Q9967

== ENCOUNTER 2020-06-12 08:43 | Observation (INO) | payer OTHER, SELFPAY ==
[2020-06-12] VITALS (16 sets, daily range): BP systolic 114–188; BP diastolic 58–86; PULSE 58–118; RESP 16–25; TEMP 36.4–37.2; O2SAT 88–100; BMI 31.9
--- NOTE | 2020-06-12 09:04 | ED_ITS ---
HPI - Abdominal Pain General Chief Complaint: Abdominal Pain Stated Complaint: low gi pain/here earlier/nausea/vomiting Time Seen by Provider: 06/12/20 08:49 Source: patient and family History of Present Illness HPI narrative: Patient here for same complaint. Seen here yesterday for the same. At CT scan abdomen pelvis as well as laboratory studies. Patient states this is cyclical. Including before gallbladder removed and continues after gallbladder removed years ago. Has had endoscopy of the stomach and colon for the same complaint. Procedures done at [facility]. Seen here in April 2019 as well as April 2018 for the same complaint. Related Data Previous Rx's Medication Instructions Recorded ondansetron 4 mg PO Q6-8H PRN #10 tab 05/01/18 Allergies Allergy/AdvReac Type Severity Reaction Status Date / Time shellfish derived Allergy Intermediate Verified 06/12/20 09:05 [SHELLFISH DERIVED] codeine [CODEINE] Allergy Unknown Verified 06/12/20 09:05 Penicillins [PENICILLINS] Allergy Unknown Verified 06/12/20 09:05 Tetracyclines [TETRACYCLINES] Allergy Unknown Verified 06/12/20 09:05 IV CONTRAST Allergy Intermediate Uncoded 06/12/20 09:05 Review of Systems Review of Systems Narrative: GENERAL: Denies chills, fatigue, malaise, fever, sweats. HEENT: Denies sinus pain, ear pain, sore throat RESPIRATORY: Denies dyspnea, cough CARDIOVASCULAR: Denies chest pain, palpitations GASTROINTESTINAL: Complaint nausea, vomiting, abdominal pain : Denies dysuria, frequency, hematuria MUSCULOSKELETAL: denies muscle or bony pain SKIN: Denies rash, skin lesions NEUROLOGIC: Denies weakness, numbness ROS Unobtainable: All systems reviewed & are unremarkable except as noted in HPI and below Patient History Medical History Cyclic vomiting syndrome Migraine UTI (urinary tract infection) Surgical History Status post cholecystectomy Status post tubal ligation Social History household members: spouse Smoking Status: Never smoker Smoking Status: Never smoker alcohol intake frequency: 0-2 drinks per day Substance Use Type: does not use Exam Narrative Exam Narrative: GENERAL: in no distress, not toxic not dyspneic HEAD: Normocephalic. EYES: Pupils equal round No scleral icterus. No injection no discharge ENT: Mucous membranes moist. NECK: Trachea midline. CARDIOVASCULAR: Regular rate and rhythm without murmurs RESPIRATORY: Clear to auscultation. Breath sounds equal bilaterally. No wheezes, rales, or rhonchi. GASTROINTESTINAL: Abdomen soft, diffuse abdominal tenderness, no peritoneal signs, bowel sounds present. EXTREMITIES: No gross deformities. BACK: No flank tenderness. NEURO: AOx4. SKIN: Warm and dry PSYCH: Not anxious, is cooperative Initial Vital Signs Initial Vital Signs: Vital Signs Temperature 97.6 F 06/12/20 08:59 Pulse Rate 118 H 06/12/20 08:59 Respiratory Rate 25 H 06/12/20 08:59 Blood Pressure 188/82 H 06/12/20 08:59 Pulse Oximetry 98 06/12/20 08:59 Course Course Course Narrative: Continues nausea and vomiting and abdominal pain Decision to Admit Date: 06/12/20 Decision to Admit time: 12:27 Orders Ordered: Discontinued Medications Acetaminophen (Acetaminophen 325 Mg Tablet) 650 mg PO Q6HR PRN PRN Reason: Fever/Mild Pain (1-3) Last Admin: 06/13/20 06:58 Dose: 650 mg Documented by: ENRICO Calcium Carbonate (Calcium Carbonate 500 Mg Tab) 500 mg PO NOW ONE Stop: 06/12/20 21:59 Last Admin: 06/12/20 22:26 Dose: 500 mg Documented by: KADEN Calcium Carbonate (Calcium Carbonate 500 Mg Tab) 500 mg PO NOW ONE Stop: 06/13/20 06:58 Diphenhydramine HCl (Diphenhydramine 50 Mg/Ml Vial) 25 mg IV NOW ONE Stop: 06/12/20 09:03 Last Admin: 06/12/20 09:42 Dose: 25 mg Documented by: GENA Hydromorphone HCl (Hydromorphone 1 Mg Inj) 1 mg IV NOW ONE Stop: 06/12/20 09:03 Last Admin: 06/12/20 09:40 Dose: 1 mg Documented by: GENA Hydromorphone HCl (Hydromorphone 1 Mg Inj) 1 mg IV Q4H PRN PRN Reason: Pain, Moderate (4-6) Last Admin: 06/12/20 14:14 Dose: 1 mg Documented by: YDAY Hydromorphone HCl (Hydromorphone 1 Mg Inj) 1 mg IV Q6H PRN PRN Reason: Pain, Severe (7-10) Sodium Chloride (Normal Saline 0.9%) 1,000 mls @ 1,000 mls/hr IV BOLUS ONE Stop: 06/12/20 10:01 Last Infusion: 06/12/20 11:29 Dose: 0 mls/hr Documented by: Admin: 06/12/20 09:42 Dose: 1,000 mls/hr Documented by: GENA Sodium Chloride (Normal Saline 0.9%) 1,000 mls @ 100 mls/hr IV CONT SHEFALI Last Infusion: 06/12/20 22:45 Dose: 0 mls/hr Documented by: Infusion: 06/12/20 17:40 Dose: 100 mls/hr Documented by: Infusion: 06/12/20 15:28 Dose: 0 mls/hr Documented by: Admin: 06/12/20 14:16 Dose: 100 mls/hr Documented by: KATHERINE Sodium Chloride (Normal Saline 0.9%) 1,000 mls @ 2,000 mls/hr IV BOLUS ONE Stop: 06/12/20 15:45 Last Admin: 06/12/20 15:28 Dose: 999 mls/hr Documented by: KADEN Sodium Chloride (Normal Saline 0.9%) 1,000 mls @ 1,000 mls/hr IV BOLUS ONE Stop: 06/12/20 17:23 Last Admin: 06/12/20 16:27 Dose: 1,000 mls/hr Documented by: KADEN Naloxone HCl (Naloxone 0.4 Mg/Ml Vial) 0.2 mg IV Q2MIN PRN PRN Reason: Opiate Reversal Ondansetron HCl (Ondansetron 4 Mg/2 Ml Inj) 4 mg IV NOW ONE Stop: 06/12/20 09:05 Last Admin: 06/12/20 09:42 Dose: 4 mg Documented by: GENA Ondansetron HCl (Ondansetron 4 Mg/2 Ml Inj) 4 mg IV Q8HR PRN PRN Reason: Nausea And Vomiting Pantoprazole Sodium (Pantoprazole 40 Mg Vial) 20 mg IV NOW ONE Stop: 06/12/20 15:13 Last Admin: 06/12/20 15:32 Dose: 20 mg Documented by: KADEN Pantoprazole Sodium (Pantoprazole 20 Mg Tablet) 20 mg PO DAILY@0700 SHEFALI Last Admin: 06/13/20 07:12 Dose: 20 mg Documented by: ENRICO Reevaluation(s) Reevaluation #1: At this time nausea vomiting abdominal has improved. Time: 12:36 Consultations Consultation #1: Spoke with Gastroenterology with [facility] Dr. Matthews, no indication for transfer. Patient could be admitted here. IV hydration and nausea control. Likely will take 24 hours Time: 12:36 Consultation #2: Spoke with Dr. Traylor, hospitalist. Will admit Time: 12:36 Vital Signs Vital signs: Vital Signs - 8 hr 06/12/20 08:59 06/12/20 09:47 06/12/20 09:50 Temperature 97.6 F Pulse Rate 118 H 69 76 Respiratory Rate 25 H Blood Pressure 188/82 H 160/86 H Pulse Oximetry 98 100 91 06/12/20 10:00 06/12/20 10:30 06/12/20 11:00 Temperature Pulse Rate 58 L 102 H 105 H Respiratory Rate Blood Pressure 150/75 H 115/60 117/62 Pulse Oximetry 94 94 99 06/12/20 11:30 06/12/20 12:00 Temperature Pulse Rate 92 H 95 H Respiratory Rate 17 16 Blood Pressure 117/60 129/58 L Pulse Oximetry 91 91 MDM - Abdominal Pain Differential Diagnosis Differential diagnosis: Likely abdominal pain and other (Intractable vomiting) Medical Records Attestation: I reviewed the patient's medical records. Medical records narrative: [address] [id number] Scan ReportSigned Patient: Rosemarie Callahan [facility]#: [id number]: 1965Acct:[id number]/Sex: 54 / FDate of Service: 06/11/20Loc: EDAccession Number: [id number] Procedure: CT abdomen pelvis w con Ordering Provider: Monie Serna D.O. PROCEDURE: CT ABDOMEN PELVIS W CON INDICATIONS: vomiting/diarrhea x 3 days, hx cholecystitis TECHNIQUE: After the administration of intravenous contrast, 5 mm thick sections acquired from the diaphragm to the symphysis. 5 mm coronal and sagittal reformats were acquired. For radiation dose reduction, the following was used: automated exposure control, adjustment of mA and/or kV according to patient size. COMPARISON: Former[facility], CT, CT ABDOMEN PELVIS W CON, 05/01/2018, 5:46. FINDINGS: Image quality: Excellent. ABDOMEN: Lung bases: Lung bases are clear. Heart size is normal. Stable benign cyst adjacent to the heart, possibly a pericardial cyst, measuring 4.6 x 4.0 cm. Solid organs: Liver is normal in size and enhancement. Gallbladder remote cholecystectomy.. Biliary system is non dilated. Pancreas enhances normally. Spleen is normal in size and enhancement. No adrenal nodules. Kidneys demonstrate normal size and enhancement, without hydronephrosis. Peritoneum and bowel: Bowel loops demonstrate normal wall thickness and caliber. No free fluid or air. Nodes and vessels: No retroperitoneal or mesenteric adenopathy by size criteria. Aorta and inferior vena cava are normal in size. Miscellaneous: No ventral hernias. PELVIS: Genitourinary: Bladder wall thickness is normal. Miscellaneous: No inguinal hernias or adenopathy. Uterus is surgically absent. Bones: No suspicious bony lesions. No vertebral body compression fractures. IMPRESSION: 1. Benign stable pericardial cyst. 2. No evidence of acute abdominal process. 3. Remote cholecystectomy and hysterectomy. Comment: Final report is concordant with preliminary interpretation provided by [facility]. Dictated by: Raoul Barton M.D. on 06/12/2020 at 7:58 Approved by: Raoul Barton M.D. on 06/12/2020 at 8:02 Lab Data Attestation: I reviewed the patient's lab results. Result diagrams: 06/13/20 05:30 06/13/20 05:30 Labs: Lab Results 06/12/20 06/12/20 06/12/20 Range/Units 09:19 09:19 09:29 WBC 22.5 H (4.5-11.0) X10^3/uL RBC 4.91 (4.0-5.2) X10^6/uL Hgb 14.8 (12.0-16.0) g/dL Hct 43.8 (36-46) % MCV 89.1 (80-100) fL MCH 30.2 (26-34) PG MCHC 33.9 (30-36) % RDW 13.2 (11.6-14.8) % Plt Count 304 (150-400) X10^3/uL Neut % (Auto) 90.5 H (50-75) % Lymph % (Auto) 6.9 L (25-40) % [place] % (Auto) 2.2 L (3-14) % Eos % (Auto) 0.0 L (2-4) % Baso % (Auto) 0.4 (0-2) % Neut # (Auto) 52893 H (3783-5681) /uL Lymph # (Auto) 1500 (5900-3642) /uL [place] # (Auto) 500 (0-900) /uL Eos # (Auto) 0 (0-450) /uL Baso # (Auto) 100 (0-100) /uL Sodium 141 (137-145) mmol/L Potassium 3.5 (3.4-5.1) mmol/L Chloride 111 H (98-107) mmol/L Carbon Dioxide 14 L (22-32) mmol/L BUN 15 (7-17) mg/dL Creatinine 0.71 (0.52-1.04) mg/dL Estimated GFR > 60.0 (>60) mL/min BUN/Creatinine Ratio 21.1 (6-22) Glucose 186 H (70-100) mg/dL Calcium 9.8 (8.4-10.2) mg/dL Total Bilirubin 0.8 (0.2-1.3) mg/dL AST 28 (14-36) IU/L ALT 29 (<35) IU/L Alkaline Phosphatase 98 (38-126) U/L Total Protein 7.8 (6.3-8.2) g/dL Albumin 4.8 (3.5-5.0) g/dL Globulin 3.0 (1.7-4.1) g/dL Albumin/Globulin Ratio 1.6 (1.0-2.8) Lipase 149 (23-300) U/L SARS-CoV-2 (PCR) Negative (Negative) ECG Data Attestation: I personally reviewed and interpreted this ECG as follows: Interpretation: Sinus rhythm. Ventricular rate 79. No ST elevation or depression MDM Narrative Medical decision making narrative: Appropriate for admit here. Spoke with Gastroenterology at [place] that has seen patient in the past. No scoping indicated. Can admit here Discharge Plan Departure Patient Disposition: Admitted as Observation Clinical Impression: Intractable abdominal pain Intractable vomiting Qualifiers: Vomiting type: unspecified Nausea presence: unspecified Qualified Code(s): R11.10 - Vomiting, unspecified Admit Date/Time: 06/12/20 12:30 Admit Provider: Mahendra Almaguer
[2020-06-12 09:36] LABS: Add Manual Diff / Slide Review NO; Basophils Absolute Auto 100 /uL (0-100); Basophils Percent Auto 0.4 % (0-2); Eosinophils Absolute Auto 0 /uL (0-450); Hematocrit 43.8 % (36-46); Hemoglobin 14.8 g/dL (12.0-16.0); Lymphocytes Absolute Auto 1500 /uL (1100-4500); Lymphocytes Percent Auto 6.9 % (25-40); Mean Corpuscular HGB Conc 33.9 % (30-36); Mean Corpuscular Hemoglobin 30.2 PG (26-34); Mean Corpuscular Volume 89.1 fL (80-100); Monocytes Absolute Auto 500 /uL (0-900); Monocytes Percent Auto 2.2 % (3-14); Neutrophils Absolute Auto 20400 /uL (1500-7000); Neutrophils Percent Auto 90.5 % (50-75); Platelet Count 304 X10^3/uL (150-400); Red Blood Cell Count 4.91 X10^6/uL (4.0-5.2); Red Cell Distribution Width 13.2 % (11.6-14.8); White Blood Cell Count 22.5 X10^3/uL (4.5-11.0)
[2020-06-12] MEDS: HYDROMORPHONE 1 MG INJ IV ×2 (09:40→14:14)
[2020-06-12] MEDS: SODIUM CHLORIDE 0.9% 1,000 ML 1000 ML IV ×2 (09:42→16:27)
[2020-06-12] MEDS: ONDANSETRON 4 MG/2 ML INJ IV (09:42)
[2020-06-12] MEDS: diphenhydrAMINE 50 MG/ML VIAL 25 MG IV (09:42)
[2020-06-12 09:57] LABS: Albumin 4.8 g/dL (3.5-5.0); Albumin Globulin Ratio 1.6 (1.0-2.8); Alkaline Phosphatase 98 U/L (38-126); Aspartate Aminotransferase 28 IU/L (14-36); BUN Creatinine Ratio 21.1 (6-22); Bilirubin Total 0.8 mg/dL (0.2-1.3); Blood Urea Nitrogen 15 mg/dL (7-17); Calcium 9.8 mg/dL (8.4-10.2); Carbon Dioxide 14 mmol/L (22-32); Chloride 111 mmol/L (98-107); Estimated Glomerular Filt Rate > 60.0 mL/min (>60); Glucose 186 mg/dL (70-100); HEMOLYSIS 20 (0-50); Lipase 149 U/L (23-300); Potassium 3.5 mmol/L (3.4-5.1); Sodium 141 mmol/L (137-145); Total Protein 7.8 g/dL (6.3-8.2)
[2020-06-12 09:59] LABS: COVID19 -Nasal RAPID Negative (Negative)
[2020-06-12 10:03] LABS: Alanine Aminotransferase 29 IU/L (<35)
--- NOTE | 2020-06-12 13:23 | PC.NURSE ---
Day shift: Pt on unit at approx 1320 from ED. She is A&Ox4. RA. VS OK. No recent falls reported and denies any dizziness. Oriented to room and call light. Has a pleasant disposition. 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 Dr Almaguer made aware that she is on the unit now. Pt also reports that her skin is in good condition.
[2020-06-12] MEDS: SODIUM CHLORIDE 0.9% 1,000 ML 100 ML IV (14:16)
[2020-06-12 14:30] LABS: UR Morphine/Opiate cutoff 300 Positive (Negative); Ur Creatinine Normal (Normal); Ur Specific Gravity Normal (Normal); Urine Amphetamines Negative (Negative); Urine Barbiturates Negative (Negative); Urine Benzodiazepines Negative (Negative); Urine Cocaine Negative (Negative); Urine MDMA Negative (Negative); Urine Methadone Negative (Negative); Urine Methamphetamines Negative (Negative); Urine Oxycodone Negative (Negative); Urine Phencyclidine Negative (Negative); Urine Tetrahydrocannabinol Positive (Negative); Urine Tricyclic Antidepressant Negative (Negative); Urine pH Normal (Normal)
[2020-06-12 14:51] LABS: Hematocrit 41.5 % (36-46); Hemoglobin 13.9 g/dL (12.0-16.0); Mean Corpuscular HGB Conc 33.6 % (30-36); Mean Corpuscular Hemoglobin 29.6 PG (26-34); Mean Corpuscular Volume 88.2 fL (80-100); Platelet Count 252 X10^3/uL (150-400); Red Blood Cell Count 4.71 X10^6/uL (4.0-5.2); Red Cell Distribution Width 13.1 % (11.6-14.8)
[2020-06-12 14:56] LABS: Add Manual Diff / Slide Review YES
--- NOTE | 2020-06-12 15:00 | PC.NURSE ---
Day shift: Dr Almaguer made aware of Pt's WBC count of 31.
[2020-06-12 15:03] LABS: Lactate (Lactic Acid) 1.7 mmol/L (0.7-2.1)
--- NOTE | 2020-06-12 15:24 | PM.HP.1 ---
History of Present Illness History of Present Illness Date Patient Seen: 06/12/20 Time Patient Seen: 15:24 Date of Onset of Symptoms: 06/09/20 Chief complaint: low gi pain/here earlier/nausea/vomiting Narrative: Rosemarie Callahan is a 54 year old female with no known PMH who presents with 3 days of nausea, vomiting, abdominal pain, and diarrhea. Patient has had approximately 3-4 episodes of this in the past where she has had an extensive workup with no over causes found. She denies any hematemesis, symptoms started Thursday evening and she presented to the emergency room and was found have a mild leukocytosis but otherwise appeared well and improved with hydration and medications. Abdominal pain slightly worsened today and she was unable to keep anything down and she returned to the emergency room. In the emergency room, the patient's vital signs are unremarkable. Initial laboratory evaluation [place] [address], this increased to 31,000 on repeat later in the afternoon. Chemistries revealed a carbon dioxide level of 14 with an anion gap of 16. Glucose was 186. Lactic acid checked later in the afternoon showed a lactate of 1.7 after the patient had received 1 L of fluids. The remainder of her chemistries were unremarkable. COVID-19 testing was negative. Urine drug screen was positive for opiates which the patient had received in the ER and marijuana. Admitted for further evaluation Patient History Medical History Cyclic vomiting syndrome Migraine UTI (urinary tract infection) Surgical History Status post cholecystectomy Status post tubal ligation Family & Social History Social History: household members spouse Prior Living Arrangements House Safety & Behavioral: Feels Safe in Current Yes Environment Been Physically Hurt or No Threatened By a Person Suicidal Ideation Description None Suicide Plan Description No Plan Tobacco & Substance use: Smoking Status Never smoker alcohol intake frequency holiday/special occasion Substance Use Type does not use Meds Home Medications and Allergies Home Medications Medication Instructions Recorded Confirmed Type ondansetron 4 mg PO Q6-8H PRN #10 tab 05/01/18 06/12/20 Rx Allergies Allergy/AdvReac Type Severity Reaction Status Date / Time shellfish derived Allergy Intermediate Verified 06/12/20 09:05 [SHELLFISH DERIVED] codeine [CODEINE] Allergy Unknown Verified 06/12/20 09:05 Penicillins [PENICILLINS] Allergy Unknown Verified 06/12/20 09:05 Tetracyclines [TETRACYCLINES] Allergy Unknown Verified 06/12/20 09:05 IV CONTRAST Allergy Intermediate Uncoded 06/12/20 09:05 Review of Systems Review of Systems Narrative: All other systems reviewed with the patient and are negative unless otherwise stated. Exam Vital Signs (past 8 hours): - 06/12/20 08:59 06/12/20 09:47 06/12/20 09:50 Temperature 97.6 F Pulse Rate 118 H 69 76 Respiratory Rate 25 H Blood Pressure 188/82 H 160/86 H Pulse Oximetry 98 100 91 06/12/20 10:00 06/12/20 10:30 06/12/20 11:00 Temperature Pulse Rate 58 L 102 H 105 H Respiratory Rate Blood Pressure 150/75 H 115/60 117/62 Pulse Oximetry 94 94 99 06/12/20 11:30 06/12/20 12:00 06/12/20 12:30 Temperature Pulse Rate 92 H 95 H 103 H Respiratory Rate 17 16 22 Blood Pressure 117/60 129/58 L 122/70 Pulse Oximetry 91 91 92 06/12/20 13:00 06/12/20 13:28 Temperature 98.4 F Pulse Rate 84 81 Respiratory Rate 18 16 Blood Pressure 114/68 138/76 Pulse Oximetry 93 98 Oxygen Delivery Method Nasal Cannula Oxygen Flow Rate 1 Narrative Exam Narrative: GENERAL APPEARANCE: Well developed, well nourished, but mildly ill-appearing female appears uncomfortable. SKIN: Inspection of the skin reveals no rashes, ulcerations or petechiae. HEENT: Normocephalic atraumatic, extraocular muscles are intact, oropharynx is clear and mucous membranes dry. NECK: Supple and symmetric. There was no thyroid enlargement, and no tenderness, or masses were felt. CHEST: Normal AP diameter and normal contour without any kyphoscoliosis. LUNGS: Auscultation of the lungs revealed no wheezes, rhonchi, or rales. CARDIOVASCULAR: There was a regular rate and rhythm without any murmurs, gallops, rubs. Peripheral pulses were 2+ and symmetric. ABDOMEN: Soft, minimally distended, obese abdomen, predominantly epigastric tenderness also to a lesser degree in the right upper and left upper quadrants. MUSCULOSKELETAL: There was no tenderness or effusions noted. Muscle strength and tone were normal. EXTREMITIES: No cyanosis, clubbing or edema. NEUROLOGIC: Alert and oriented x 3. Appears uncomfortable and mildly anxious. Strength is +5/5 in the Upper Extremities and Lower Extremities Bilaterally. Sensation to touch was normal. Objective ECG Impression: Sinus rhythm with occasional premature ventricular complexes and fusion complexes Otherwise normal ECG Imaging CT scan - abdomen: Radiologist's impression: PROCEDURE: CT ABDOMEN PELVIS W CON INDICATIONS: vomiting/diarrhea x 3 days, hx cholecystitis TECHNIQUE: After the administration of intravenous contrast, 5 mm thick sections acquired from the diaphragm to the symphysis. 5 mm coronal and sagittal reformats were acquired. For radiation dose reduction, the following was used: automated exposure control, adjustment of mA and/or kV according to patient size. COMPARISON: [facility], CT, CT ABDOMEN PELVIS W CON, 05/01/2018, 5:46. FINDINGS: Image quality: Excellent. ABDOMEN: Lung bases: Lung bases are clear. Heart size is normal. Stable benign cyst adjacent to the heart, possibly a pericardial cyst, measuring 4.6 x 4.0 cm. Solid organs: Liver is normal in size and enhancement. Gallbladder remote cholecystectomy.. Biliary system is non dilated. Pancreas enhances normally. Spleen is normal in size and enhancement. No adrenal nodules. Kidneys demonstrate normal size and enhancement, without hydronephrosis. Peritoneum and bowel: Bowel loops demonstrate normal wall thickness and caliber. No free fluid or air. Nodes and vessels: No retroperitoneal or mesenteric adenopathy by size criteria. Aorta and inferior vena cava are normal in size. Miscellaneous: No ventral hernias. PELVIS: Genitourinary: Bladder wall thickness is normal. Miscellaneous: No inguinal hernias or adenopathy. Uterus is surgically absent. Bones: No suspicious bony lesions. No vertebral body compression fractures. IMPRESSION: 1. Benign stable pericardial cyst. 2. No evidence of acute abdominal process. 3. Remote cholecystectomy and hysterectomy. Comment: Final report is concordant with preliminary interpretation provided by [facility]. Labs Result Diagrams: 06/12/20 14:40 06/12/20 09:19 Labs: Laboratory Results - last 24 hr 06/12/20 06/12/20 06/12/20 09:19 09:19 09:29 WBC 22.5 H RBC 4.91 Hgb 14.8 Hct 43.8 MCV 89.1 MCH 30.2 MCHC 33.9 RDW 13.2 Plt Count 304 Neut % (Auto) 90.5 H Lymph % (Auto) 6.9 L [place] % (Auto) 2.2 L Eos % (Auto) 0.0 L Baso % (Auto) 0.4 Neut # (Auto) 13393 H Lymph # (Auto) 1500 [place] # (Auto) 500 Eos # (Auto) 0 Baso # (Auto) 100 Sodium 141 Potassium 3.5 Chloride 111 H Carbon Dioxide 14 L BUN 15 Creatinine 0.71 Estimated GFR > 60.0 BUN/Creatinine Ratio 21.1 Glucose 186 H Lactate Calcium 9.8 Total Bilirubin 0.8 AST 28 ALT 29 Alkaline Phosphatase 98 Total Protein 7.8 Albumin 4.8 Globulin 3.0 Albumin/Globulin Ratio 1.6 Lipase 149 U Opiates 300ng/mL cut Ur Oxycodone Screen Urine Methadone Screen Ur Barbiturates Screen U Tricyclic Antidepress Ur Phencyclidine Scrn Ur Amphetamines Screen U Methamphetamines Scrn Ur MDMA Scrn (Ecstasy) U Benzodiazepines Scrn Urine Cocaine Screen U Marijuana (THC) Screen SARS-CoV-2 (PCR) Negative 06/12/20 06/12/20 06/12/20 13:35 14:40 14:40 WBC 31.0 H* RBC 4.71 Hgb 13.9 Hct 41.5 MCV 88.2 MCH 29.6 MCHC 33.6 RDW 13.1 Plt Count 252 Neut % (Auto) Not Reportable Lymph % (Auto) Not Reportable [place] % (Auto) Not Reportable Eos % (Auto) Not Reportable Baso % (Auto) Not Reportable Neut # (Auto) Lymph # (Auto) Not Reportable [place] # (Auto) Not Reportable Eos # (Auto) Baso # (Auto) Not Reportable Sodium Potassium Chloride Carbon Dioxide BUN Creatinine Estimated GFR BUN/Creatinine Ratio Glucose Lactate 1.7 Calcium Total Bilirubin AST ALT Alkaline Phosphatase Total Protein Albumin Globulin Albumin/Globulin Ratio Lipase U Opiates 300ng/mL cut Positive H Ur Oxycodone Screen Negative Urine Methadone Screen Negative Ur Barbiturates Screen Negative U Tricyclic Antidepress Negative Ur Phencyclidine Scrn Negative Ur Amphetamines Screen Negative U Methamphetamines Scrn Negative Ur MDMA Scrn (Ecstasy) Negative U Benzodiazepines Scrn Negative Urine Cocaine Screen Negative U Marijuana (THC) Screen Positive H SARS-CoV-2 (PCR) Assessment & Plan Assessment & Plan narrative: Rosemarie Callahan is a 54 year old female with no known PMH who presents with 3 days of nausea, vomiting, abdominal pain, and diarrhea. Admitted for intractable abdominal pain and dehydration. 1. Intractable abdominal pain, nausea, vomiting, and diarrhea - patient with symptoms of a gastroenteritis, although symptoms have continued for the past 3 days. Endorses similar episodes in the past with no overt etiology found. Significant leukocytosis and acidosis on admission. Will continue to monitor for now, no overt source and will monitor for now off of antibiotic therapy given negative CT imaging. - patient denies marijuana use but UDS positive for THC. Consider cyclic vomiting syndrome although this typically will not produce a leukocytosis. - glucose mildly elevated at 186, will check A1c. - GI panel ordered. - continue supportive care with pain control, anti-nauseal medications, protonix. - Given negative CT, patient can eat diet as tolerated. 2. Anion gap metabolic acidosis - CO2 level of 14 on admission, suspect secondary to lactic acidosis due to dehyrdation however lactic acid not checked on admission labs. After fluid level 1.7. Glucose 186 no history of diabetes, DKA is highly unlikely. - will repeat labs to assess response after additional 2L of IVF. - will check an A1c given hyperglycemia. 3. Acute dehydration, present on admission - secondary to above process. Will rehydrate as noted above. Code: Full, surrogate decision maker is the patient's . DVT: SCD Dispo: Admitted under observation status.
[2020-06-12] MEDS: SODIUM CHLORIDE 0.9% 1,000 ML 999 ML IV (15:28)
[2020-06-12] MEDS: PANTOPRAZOLE 40 MG VIAL 20 MG IV (15:32)
[2020-06-12 15:36] LABS: Neutrophils Absolute Manual 29140 /uL (3000-5900); RBC Morphology Normal Morphology; Total Cells Counted 100
[2020-06-12 15:48] LABS: Magnesium 1.8 mg/dL (1.6-2.3)
--- NOTE | 2020-06-12 16:25 | PC.NURSE ---
Addendum entered by Saray Erickson R.N. 06/12/20 23:33: 2240: pt states she feels she's fluid overload and wanted her IVF of NS @100 to be stopped. pt reports that she saw and received total of 9 Liters of fluid within the last 24 hours including the ones given in the ED. pt states her legs are swollen and that she voided only 300mls for day shift and 300mls for charo shift. pt threatened to leave the hospital if her fluids are not stopped. I explained to patient that she does not seem to be in fluid overload. I explained to patient the total amount of fluids she got per documentation, I assessed her BLE and there was no visible swelling. her lung sounds were clear and according to documentation, she voided a total of 900cc for day and charo shift. Her weight on admit was 92.5kg and new weight today was 93.7kg. despite explaining to her the rational for keeping her on IVF, pt still declined to have IVF maintenance. pt also wanted her IV catheter out. hospitalist aware of this issue. Original Note: Pt vomited 50cc. Dr. Almaguer wanted 2L of fluid bolus, added 1L extra bolus since the order was only for 1L.
[2020-06-12 17:35] LABS: Bacteria Urine None Seen; RBC Urine None Seen (0-5/HPF); WBC Urine None Seen (0-5/HPF)
[2020-06-12 17:50] LABS: Appearance Urine UA CLOUDY; Bilirubin Urine UA NEGATIVE (NEGATIVE); Color Urine UA YELLOW; Glucose Urine UA TRACE g/dL (Negative); Ketones Urine UA 1+ (NEGATIVE); Leukocyte Esterase Urine UA NEGATIVE (NEGATIVE); Nitrite Urine UA NEGATIVE (Negative); Occult Blood Urine UA TRACE-INTACT (Negative); Protein Urine UA 1+ (Negative); Specific Gravity Urine UA >=1.030 (1.000-1.035); Urobilinogen Urine UA 0.2 E.U./dL (0.2)
[2020-06-12 18:00] LABS: Amorphous Sediment Urine 4+; Culture Indicated Urine Cult Not Indicated
[2020-06-12] MEDS: CALCIUM CARBONATE 500 MG TAB PO (22:26)
[2020-06-13] VITALS: BP 148/93; PULSE 66; RESP 16; TEMP 37; O2SAT 97
--- NOTE | 2020-06-13 00:40 | PC.NURSE ---
CONSULTING PRACTICE DIRECTOR note: asked patient if she wanted to wear her SCDs for the night. Patient refused.
[2020-06-13 05:35] VITALS: BP 148/82; PULSE 80; RESP 16; TEMP 37.3; O2SAT 93
[2020-06-13 05:53] VITALS: O2SAT 93
[2020-06-13 05:55] LABS: Add Manual Diff / Slide Review NO; Basophils Absolute Auto 100 /uL (0-100); Basophils Percent Auto 0.4 % (0-2); Eosinophils Absolute Auto 0 /uL (0-450); Hematocrit 38.3 % (36-46); Hemoglobin 12.9 g/dL (12.0-16.0); Lymphocytes Absolute Auto 2200 /uL (1100-4500); Lymphocytes Percent Auto 12.2 % (25-40); Mean Corpuscular HGB Conc 33.6 % (30-36); Mean Corpuscular Volume 89.1 fL (80-100); Monocytes Absolute Auto 900 /uL (0-900); Monocytes Percent Auto 5.1 % (3-14); Neutrophils Absolute Auto 14700 /uL (1500-7000); Neutrophils Percent Auto 82.3 % (50-75); Platelet Count 196 X10^3/uL (150-400); Red Cell Distribution Width 13.3 % (11.6-14.8); White Blood Cell Count 17.9 X10^3/uL (4.5-11.0)
[2020-06-13 06:05] LABS: Alanine Aminotransferase 33 IU/L (<35); Albumin 3.7 g/dL (3.5-5.0); Albumin Globulin Ratio 1.5 (1.0-2.8); Alkaline Phosphatase 68 U/L (38-126); Aspartate Aminotransferase 29 IU/L (14-36); Bilirubin Total 0.6 mg/dL (0.2-1.3); Bilirubin Unconjugated 0.6 mg/dL (0.0-1.1); Blood Urea Nitrogen 15 mg/dL (7-17); Calcium 8.6 mg/dL (8.4-10.2); Carbon Dioxide 23 mmol/L (22-32); Chloride 113 mmol/L (98-107); Estimated Glomerular Filt Rate > 60.0 mL/min (>60); Globulin 2.5 g/dL (1.7-4.1); Glucose 103 mg/dL (70-100); HEMOLYSIS < 15 (0-50); Potassium 3.3 mmol/L (3.4-5.1); Sodium 140 mmol/L (137-145); Total Protein 6.2 g/dL (6.3-8.2)
[2020-06-13 06:18] LABS: Hemoglobin A1C% w Est Avg Glu 5.9 % (4.0-6.0)
[2020-06-13] MEDS: ACETAMINOPHEN 325 MG TABLET 650 MG PO (06:58)
[2020-06-13] MEDS: PANTOPRAZOLE 20 MG TABLET PO (07:12)
--- NOTE | 2020-06-13 07:54 | P.DS_ITS ---
History of Present Illness History of Present Illness Chief complaint: low gi pain/here earlier/nausea/vomiting Narrative: Rosemarie Callahan is a 54 year old female with no known PMH who presents with 3 days of nausea, vomiting, abdominal pain, and diarrhea. Patient has had approximately 3-4 episodes of this in the past where she has had an extensive workup with no over causes found. She denies any hematemesis, symptoms started Thursday evening and she presented to the emergency room and was found have a mild leukocytosis but otherwise appeared well and improved with hydration and medications. Abdominal pain slightly worsened today and she was unable to keep anything down and she returned to the emergency room. In the emergency room, the patient's vital signs are unremarkable. Initial laboratory evaluation [place] [address], this increased to 31,000 on repeat later in the afternoon. Chemistries revealed a carbon dioxide level of 14 with an anion gap of 16. Glucose was 186. Lactic acid checked later in the afternoon showed a lactate of 1.7 after the patient had received 1 L of fluids. The remainder of her chemistries were unremarkable. COVID-19 testing was negative. Urine drug screen was positive for opiates which the patient had received in the ER and marijuana. Admitted for further evaluation Discharge Providers Provider Date of admission: 06/12/20 12:30 Discharge Date: 06/14/20 Primary care physician: Lynda Sawant MD Discharge provider: Mahendra Almaguer DO Summary Hospital Course Discharge Diagnosis: Please see hospital course by problem list noted below. Hospital Course: Rosemarie Callahan is a 54 year old female with no known PMH who presented with 3 days of nausea, vomiting, abdominal pain, and diarrhea. Admitted for intractable abdominal pain and dehydration which improved the following day. No overt source was found. Patient was upset with her care overnight, asking for discharge home the following day, given improvement in laboratory findings and symptoms, and that she was tolerating adequate oral intake this is certainly reasonable. She was discharged home. 1. Abdominal pain, nausea, vomiting, and diarrhea - patient presented with symptoms of a gastroenteritis, although symptoms have continued for the past 3 days. Endorses similar episodes in the past with no overt etiology found. Significant leukocytosis and acidosis on admission. No overt source was found patient improved without antibiotic therapy given negative CT imaging. - patient denies marijuana use but UDS positive for THC, though this can be positive from other food sources or medications. Consider cyclic vomiting syndrome although this typically will not produce a leukocytosis. Leukocytosis did improve the following day with fluid hydration, may be reactive. Recommend repeat CBC with primary care. - glucose mildly elevated at 186, A1c 5.9% indiciative of pre-diabetes. - GI panel ordered but no bowel movements during her hospital stay. - continued supportive care with pain control, anti-nauseal medications, protonix and IV fluids. - Given negative CT, patient was started on a diet. She requested discharge home the following morning, given improvement in symptoms and labs, and that she stated she would be able to tolerate adequate oral intake at home, she was discharged home. 2. Anion gap metabolic acidosis, resolved. - CO2 level of 14 on admission, suspect secondary to lactic acidosis due to dehyrdation however lactic acid not checked on admission labs. After IV fluids received was 1.7. - will repeat labs to assess response after additional 2L of IVF. - A1c checked 3. Acute dehydration, present on admission - secondary to above processes. Patient was provided with adequate fluid resuscitation. Patient overnight asked for removal of IV lines and stopping fluid due to LE edema. Fluid was stopped, labs repeated in the morning with improvement. 4. Pericardial cyst - patient with stable pericardial cyst since [address] imaging. Patient states she was not aware of this information. Reassurance provided, however patient stated prior to discharge she is now aware and read up on the topic. 5. Pre-diabetes - A1c 5.9%, unclear baseline or if new diagnosis. Follow up with PCP. Exam Vital Signs (past 8 hours): - 06/13/20 00:00 06/13/20 05:35 06/13/20 05:53 Temperature 98.6 F 99.1 F Pulse Rate 66 80 Respiratory Rate 16 16 Blood Pressure 148/93 H 148/82 H Pulse Oximetry 97 93 93 Oxygen Delivery Method Room Air Oxygen Flow Rate 0 Narrative Exam Narrative: GENERAL APPEARANCE: Well developed, well nourished, but mildly ill-appearing female appears uncomfortable. SKIN: Inspection of the skin reveals no rashes, ulcerations or petechiae. HEENT: Normocephalic atraumatic, extraocular muscles are intact, oropharynx is clear and mucous membranes dry. NECK: Supple and symmetric. There was no thyroid enlargement, and no tenderness, or masses were felt. CHEST: Normal AP diameter and normal contour without any kyphoscoliosis. LUNGS: Auscultation of the lungs revealed no wheezes, rhonchi, or rales. CARDIOVASCULAR: There was a regular rate and rhythm without any murmurs, gallops, rubs. Peripheral pulses were 2+ and symmetric. ABDOMEN: Soft, minimally distended, obese abdomen, predominantly epigastric tenderness also to a lesser degree in the right upper and left upper quadrants. MUSCULOSKELETAL: There was no tenderness or effusions noted. Muscle strength and tone were normal. EXTREMITIES: No cyanosis, clubbing or edema. NEUROLOGIC: Alert and oriented x 3. Appears uncomfortable and mildly anxious. Strength is +5/5 in the Upper Extremities and Lower Extremities Bilaterally. Sensation to touch was normal. Objective Labs Result Diagrams: 06/13/20 05:30 06/13/20 05:30 Labs: Laboratory Results - last 24 hr 06/12/20 06/12/20 06/12/20 09:19 09:19 09:29 WBC 22.5 H RBC 4.91 Hgb 14.8 Hct 43.8 MCV 89.1 MCH 30.2 MCHC 33.9 RDW 13.2 Plt Count 304 Neut % (Auto) 90.5 H Lymph % (Auto) 6.9 L [place] % (Auto) 2.2 L Eos % (Auto) 0.0 L Baso % (Auto) 0.4 Neut # (Auto) 65069 H Lymph # (Auto) 1500 [place] # (Auto) 500 Eos # (Auto) 0 Baso # (Auto) 100 Total Counted Seg Neutrophils % Band Neutrophils % Lymphocytes % (Manual) Monocytes % (Manual) Neutrophils # (Manual) RBC Morphology Sodium 141 Potassium 3.5 Chloride 111 H Carbon Dioxide 14 L BUN 15 Creatinine 0.71 Estimated GFR > 60.0 BUN/Creatinine Ratio 21.1 Glucose 186 H Hemoglobin A1c Lactate Calcium 9.8 Magnesium Total Bilirubin 0.8 Conjugated Bilirubin Unconjugated Bilirubin AST 28 ALT 29 Alkaline Phosphatase 98 Total Protein 7.8 Albumin 4.8 Globulin 3.0 Albumin/Globulin Ratio 1.6 Lipase 149 Urine Color Urine Appearance Urine pH Ur Specific [place] Urine Protein Urine Glucose (UA) Urine Ketones Urine Occult Blood Urine Nitrate Urine Bilirubin Urine Urobilinogen Ur Leukocyte Esterase Urine RBC Urine WBC Amorphous Sediment Urine Bacteria Ur Culture Indicated? U Opiates 300ng/mL cut Ur Oxycodone Screen Urine Methadone Screen Ur Barbiturates Screen U Tricyclic Antidepress Ur Phencyclidine Scrn Ur Amphetamines Screen U Methamphetamines Scrn Ur MDMA Scrn (Ecstasy) U Benzodiazepines Scrn Urine Cocaine Screen U Marijuana (THC) Screen SARS-CoV-2 (PCR) Negative 06/12/20 06/12/20 06/12/20 13:35 13:35 14:40 WBC 31.0 H* RBC 4.71 Hgb 13.9 Hct 41.5 MCV 88.2 MCH 29.6 MCHC 33.6 RDW 13.1 Plt Count 252 Neut % (Auto) Not Reportable Lymph % (Auto) Not Reportable [place] % (Auto) Not Reportable Eos % (Auto) Not Reportable Baso % (Auto) Not Reportable Neut # (Auto) Lymph # (Auto) Not Reportable [place] # (Auto) Not Reportable Eos # (Auto) Baso # (Auto) Not Reportable Total Counted 100 Seg Neutrophils % 87.0 H Band Neutrophils % 7.0 Lymphocytes % (Manual) 3.0 L Monocytes % (Manual) 3.0 Neutrophils # (Manual) 33593 H RBC Morphology Normal morphology Sodium Potassium Chloride Carbon Dioxide BUN Creatinine Estimated GFR BUN/Creatinine Ratio Glucose Hemoglobin A1c Lactate Calcium Magnesium Total Bilirubin Conjugated Bilirubin Unconjugated Bilirubin AST ALT Alkaline Phosphatase Total Protein Albumin Globulin Albumin/Globulin Ratio Lipase Urine Color Yellow Urine Appearance Cloudy Urine pH 5.0 Ur Specific [place] >=1.030 H Urine Protein 1+ H Urine Glucose (UA) Trace H Urine Ketones 1+ H Urine Occult Blood Trace-intact Urine Nitrate Negative Urine Bilirubin Negative Urine Urobilinogen 0.2 Ur Leukocyte Esterase Negative Urine RBC None seen Urine WBC None seen Amorphous Sediment 4+ Urine Bacteria None seen Ur Culture Indicated? Cult not indicated U Opiates 300ng/mL cut Positive H Ur Oxycodone Screen Negative Urine Methadone Screen Negative Ur Barbiturates Screen Negative U Tricyclic Antidepress Negative Ur Phencyclidine Scrn Negative Ur Amphetamines Screen Negative U Methamphetamines Scrn Negative Ur MDMA Scrn (Ecstasy) Negative U Benzodiazepines Scrn Negative Urine Cocaine Screen Negative U Marijuana (THC) Screen Positive H SARS-CoV-2 (PCR) 06/12/20 06/12/20 06/13/20 14:40 14:40 05:30 WBC 17.9 H RBC 4.30 Hgb 12.9 Hct 38.3 MCV 89.1 MCH 30.0 MCHC 33.6 RDW 13.3 Plt Count 196 Neut % (Auto) 82.3 H Lymph % (Auto) 12.2 L [place] % (Auto) 5.1 Eos % (Auto) 0.0 L Baso % (Auto) 0.4 Neut # (Auto) 74609 H Lymph # (Auto) 2200 [place] # (Auto) 900 Eos # (Auto) 0 Baso # (Auto) 100 Total Counted Seg Neutrophils % Band Neutrophils % Lymphocytes % (Manual) Monocytes % (Manual) Neutrophils # (Manual) RBC Morphology Sodium Potassium Chloride Carbon Dioxide BUN Creatinine Estimated GFR BUN/Creatinine Ratio Glucose Hemoglobin A1c Lactate 1.7 Calcium Magnesium 1.8 Total Bilirubin Conjugated Bilirubin Unconjugated Bilirubin AST ALT Alkaline Phosphatase Total Protein Albumin Globulin Albumin/Globulin Ratio Lipase Urine Color Urine Appearance Urine pH Ur Specific [place] Urine Protein Urine Glucose (UA) Urine Ketones Urine Occult Blood Urine Nitrate Urine Bilirubin Urine Urobilinogen Ur Leukocyte Esterase Urine RBC Urine WBC Amorphous Sediment Urine Bacteria Ur Culture Indicated? U Opiates 300ng/mL cut Ur Oxycodone Screen Urine Methadone Screen Ur Barbiturates Screen U Tricyclic Antidepress Ur Phencyclidine Scrn Ur Amphetamines Screen U Methamphetamines Scrn Ur MDMA Scrn (Ecstasy) U Benzodiazepines Scrn Urine Cocaine Screen U Marijuana (THC) Screen SARS-CoV-2 (PCR) 06/13/20 06/13/20 05:30 05:30 WBC RBC Hgb Hct MCV MCH MCHC RDW Plt Count Neut % (Auto) Lymph % (Auto) [place] % (Auto) Eos % (Auto) Baso % (Auto) Neut # (Auto) Lymph # (Auto) [place] # (Auto) Eos # (Auto) Baso # (Auto) Total Counted Seg Neutrophils % Band Neutrophils % Lymphocytes % (Manual) Monocytes % (Manual) Neutrophils # (Manual) RBC Morphology Sodium 140 Potassium 3.3 L Chloride 113 H Carbon Dioxide 23 BUN 15 Creatinine 0.79 Estimated GFR > 60.0 BUN/Creatinine Ratio 19.0 Glucose 103 H Hemoglobin A1c 5.9 Lactate Calcium 8.6 Magnesium 2.0 Total Bilirubin 0.6 Conjugated Bilirubin 0.0 Unconjugated Bilirubin 0.6 AST 29 ALT 33 Alkaline Phosphatase 68 Total Protein 6.2 L Albumin 3.7 Globulin 2.5 Albumin/Globulin Ratio 1.5 Lipase Urine Color Urine Appearance Urine pH Ur Specific [place] Urine Protein Urine Glucose (UA) Urine Ketones Urine Occult Blood Urine Nitrate Urine Bilirubin Urine Urobilinogen Ur Leukocyte Esterase Urine RBC Urine WBC Amorphous Sediment Urine Bacteria Ur Culture Indicated? U Opiates 300ng/mL cut Ur Oxycodone Screen Urine Methadone Screen Ur Barbiturates Screen U Tricyclic Antidepress Ur Phencyclidine Scrn Ur Amphetamines Screen U Methamphetamines Scrn Ur MDMA Scrn (Ecstasy) U Benzodiazepines Scrn Urine Cocaine Screen U Marijuana (THC) Screen SARS-CoV-2 (PCR) PFSH Medical History Cyclic vomiting syndrome Migraine UTI (urinary tract infection) Surgical History Status post cholecystectomy Status post tubal ligation Social History household members: spouse Smoking Status: Never smoker Discharge Plan Discharge Plan Patient Disposition: Home Provider Discharge Comment: You were admitted to the hospital with symptoms of a gastroenteritis. No overt cause was found. You improved with IV fluids and supportive care. I recommend continued monitoring of the pericardial cyst and follow up with your primary care physician. Usually these are monitored unless you become symptomatic and it does appear stable since 2019 based on available imaging here. Your A1c was also slightly elevated in the pre-diabetes range, no interventions are needed at this time other than to avoid high carbohydrate meals and try to maintain an active lifestyle. You should have a repeat CBC with your primary care physician to make sure it improves to normal, although significant improvement made today with WBC going from 31 to 17.9 (normal would be 10). Discharge orders & Medications Prescriptions: Continued ondansetron 4 mg tablet,disintegrating 4 mg PO Q6-8H PRN (Reason: nausea and vomiting) Qty: 10 RF: 0 Follow up/Referrals: Lynda Sawant MD [Primary Care Provider] - Discharge Health Status Multidrug resistant organism: No MDRO Diet/Activity/Treatments Diet: Diet as Tolerated Activity: As tolerated Visit Report/Discharge Packet Instructions: DI for Dehydration -- Adult, DI for Abdominal Pain-Adult, DI for Nausea -- Adult Discharge Data Primary Care Provider: Lynda Sawant Attending Provider: Mahendra Almaguer
[2020-06-13 08:15] VITALS: O2SAT 96
--- NOTE | 2020-06-13 08:56 | PC.NURSE ---
Discharge: It's is uncertain if pt feels ready for d/c home. Pt however wants to go home. She is unable to consume any food at this time and is only taking sips of liquids. MD is aware. Pt voiced concerns about her care with the doctor and the some of the staff. Given Génesis Buckner number to either call or write a letter. Apparently she had been here before and d/c, went to [facility] and was admitted for her gall bladder. Pt was seen by SS per her request. Reviewed d/c packet. IV was already out. Pt d/c to home.
--- NOTE | 2020-06-13 10:45 | CM.DANOTE ---
DCP: Case received, EMR reviewed and met with patient. Introduced self and role. Was able to obtain information from patient regarding her baseline activity status prior to hospitalization. DCP assessment completed with information currently available. Patient is a 54 year old female who admitted yesterday afternoon to the care of the hospitalist team. PCP: Dr. Sawant. Payer: confirmed: [facility]. Patient came to the hospital via private vehicle secondary to having nausea and vomiting. Patient was diagnosed with gastroenteritis, as well as dehydration. Patient has history of benign pericardial cyst. Met with patient in her room. She was sitting up on her bed. She is independent at baseline, and is a nurse at [employer]. She was frustrated at the care she received, mainly at the diagnosis given to her by the hospitalist. This telephonic nurse case manager listened to patient's grievances, and suggested that she call Génesis Lozano at risk management, which she will do. She had spoken to other staff members about her grievances, as well. P: Patient has discharge orders, she will be going home today with no needs. Britni Hernandez RN/[employer]visor
== END 2020-06-13 08:56 | disposition home or self-care (01) ==
LOC: ED 12:18 → AC 12:31
PROVIDERS: Admitting Provider Internal Medicine; Emergency Provider Emergency Medicine; PCP Internal Medicine Geriatric Medicine; Referring Provider Emergency Medicine; Visit Provider Internal Medicine
DX: R10.9 Unspecified abdominal pain (principal); R19.7 Diarrhea, unspecified; R11.2 Nausea with vomiting, unspecified; E86.0 Dehydration; R73.03 Prediabetes; Q24.8 Other specified congenital malformations of heart; E87.2 Acidosis; Z20.822 Contact with and (suspected) exposure to COVID-19
CPT/HCPCS: 36415; 80048; 80053; 80076; 80305; 81001; 82962; 83036; 83605; 83690; 83735; 85007; 85025; 87040; 87635; 93005; 96361; 96374; 96375; 96376; 99284; C9803; G0378; C9113; J1170; J1200; J2405

== ENCOUNTER → 2021-07-03 07:10 | Outpatient (CLI) | payer OTHER, SELFPAY ==
[2020-06-12 13:32] VITALS: BMI 31.9
[2021-07-03 08:33] LABS: Add Manual Diff / Slide Review NO; Basophils Absolute Auto 0 /uL (0-100); Basophils Percent Auto 0.7 % (0-2); Eosinophils Absolute Auto 100 /uL (0-450); Hematocrit 44.6 % (36-46); Hemoglobin 15.3 g/dL (12.0-16.0); Lymphocytes Absolute Auto 2000 /uL (1100-4500); Lymphocytes Percent Auto 32.9 % (25-40); Mean Corpuscular HGB Conc 34.3 % (30-36); Mean Corpuscular Hemoglobin 30.1 PG (26-34); Mean Corpuscular Volume 87.8 fL (80-100); Monocytes Absolute Auto 400 /uL (0-900); Neutrophils Absolute Auto 3600 /uL (1500-7000); Neutrophils Percent Auto 58.4 % (50-75); Platelet Count 233 X10^3/uL (150-400); Red Blood Cell Count 5.08 X10^6/uL (4.0-5.2); Red Cell Distribution Width 12.9 % (11.6-14.8); White Blood Cell Count 6.1 X10^3/uL (4.5-11.0)
[2021-07-03 08:38] LABS: Hemoglobin A1C% w Est Avg Glu 6.1 % (4.0-6.0)
[2021-07-03 09:40] LABS: Alanine Aminotransferase 23 IU/L (<35); Albumin 4.2 g/dL (3.5-5.0); Albumin Globulin Ratio 1.6 (1.0-2.8); Alkaline Phosphatase 98 U/L (38-126); Aspartate Aminotransferase 20 IU/L (14-36); BUN Creatinine Ratio 20.3 (6-22); Bilirubin Total 0.5 mg/dL (0.2-1.3); Blood Urea Nitrogen 14 mg/dL (7-17); Calcium 9.3 mg/dL (8.4-10.2); Carbon Dioxide 22 mmol/L (22-32); Chloride 112 mmol/L (98-107); Cholesterol 210 mg/dL (140-199); Estimated Glomerular Filt Rate > 60.0 mL/min (>60); Globulin 2.7 g/dL (1.7-4.1); Glucose 109 mg/dL (70-100); HDL Cholesterol 32 mg/dL (40-60); HEMOLYSIS < 15 (0-50); LDL Cholesterol Calculated 123 mg/dL (<100); Potassium 4.4 mmol/L (3.4-5.1); Sodium 140 mmol/L (137-145); Total Protein 6.9 g/dL (6.3-8.2); Triglycerides 275 mg/dL (35-150)
[2021-07-03 10:07] LABS: TSH w/ Reflex to FT4 0.98 uIU/mL (0.47-4.68)
== END ==
PROVIDERS: PCP Internal Medicine Geriatric Medicine; Referring Provider Internal Medicine Geriatric Medicine; Visit Provider Internal Medicine Geriatric Medicine
DX: Z12.11 Encounter for screening for malignant neoplasm of colon (principal); Z00.00 Encounter for general adult medical examination without abnormal findings; I10 Essential (primary) hypertension
CPT/HCPCS: 36415; 80053; 80061; 83036; 84443; 85025

== ENCOUNTER 2021-07-24 07:11 | Emergency (ER) | payer OTHER, SELFPAY ==
[2020-06-12 13:32] VITALS: BMI 31.9
[2021-07-24] VITALS (26 sets, daily range): BP systolic 149–199; BP diastolic 70–98; PULSE 58–96; RESP 14–33; TEMP 36.4; O2SAT 91–100
--- NOTE | 2021-07-24 07:26 | ED_ITS ---
HPI - Abdominal Pain General Chief Complaint: Abdominal Pain Stated Complaint: N/V/D, GI pain, fever Time Seen by Provider: 07/24/21 07:21 History of Present Illness HPI narrative: Patient is a 55-year-old female with newly diagnosed diabetes started on metformin 2 days ago she also has a history of atrial fibrillation taking metoprolol presents today with nausea vomiting. She says she started having diarrhea yesterday. This morning at 2:00 a.m. she has vomiting nonstop unable to keep anything down. She denies any chest pain or palpitations. She has diffuse all-over abdominal pain. She denies any fever she has children now but afebrile. No on else sick at home. Related Data Previous Rx's Medication Instructions Recorded ondansetron 4 mg disintegrating 4 mg PO Q6-8H PRN #10 tab 05/01/18 tablet hydrocodone 5 mg-acetaminophen 325 1 tab PO Q6H PRN #10 tab 07/24/21 mg tablet ondansetron 4 mg disintegrating 4 mg PO Q8H PRN #10 tab 07/24/21 tablet Allergies Allergy/AdvReac Type Severity Reaction Status Date / Time shellfish derived Allergy Intermediate Verified 07/24/21 08:24 [SHELLFISH DERIVED] codeine [CODEINE] Allergy Unknown Verified 07/24/21 08:24 Penicillins [PENICILLINS] Allergy Unknown Verified 07/24/21 08:24 Tetracyclines [TETRACYCLINES] Allergy Unknown Verified 07/24/21 08:24 IV CONTRAST Allergy Intermediate Uncoded 07/24/21 08:24 Review of Systems Review of Systems Narrative: GENERAL: Denies chills, fatigue, malaise, fever, sweats, travel HEENT: Denies sinus pain, ear pain, sore throat, difficulty swallowing, neck pain RESPIRATORY: Denies dyspnea, cough, wheezing, hemoptysis, sputum. CARDIOVASCULAR: Denies chest pain, palpitations, orthopnea, edema GASTROINTESTINAL: See HPI : Denies dysuria, frequency, incontinence, hematuria, urinary retention, flank pain. MUSCULOSKELETAL: Denies weakness, joint pain, or bony pain SKIN: No rash, no erythema, no pruritus NEUROLOGIC: Denies weakness, dizziness, headache, numbness, change in speech, confusion PSYCHIATRIC: No concerning psychosocial issues. 12 point review of systems is negative except for those stated above and HPI Patient History Medical History (Updated 07/24/21 @ 14:32 by Shannan Lira DO) Cyclic vomiting syndrome Migraine UTI (urinary tract infection) Surgical History (System 07/24/21 @ 08:24 by Ofe Tracy) Status post cholecystectomy Status post tubal ligation Social History (System 07/24/21 @ 08:24 by Ofe Tracy) household members: spouse Smoking Status: Never smoker Smoking Status: Never smoker alcohol intake frequency: holidays/special occasions only Substance Use Type: does not use Exam Initial Vital Signs Initial Vital Signs: Vital Signs Temperature 97.5 F L 07/24/21 07:20 Pulse Rate 66 07/24/21 07:20 Respiratory Rate 18 07/24/21 07:20 Blood Pressure 170/92 H 07/24/21 07:20 Pulse Oximetry 100 07/24/21 07:20 GENERAL: Patient dry heaving does not appear to feel well HEENT: Head atraumatic,EOMI, pupils reactive, face symmetric, moist mucous membranes CARDIOVASCULAR: Regular rate and rhythm without murmurs, rubs or gallops. RESPIRATORY: Breath sounds equal bilaterally, no wheezes rales or rhonchi. ABDOMEN: Soft, nontender. Normoactive bowel sounds all 4 quadrants. No guarding or rebound. EXTREMITIES: Normal range of motion, no clubbing or edema. Neurovascularly intact NEUROLOGICAL: Alert and oriented x4.Normal gait and speech. SKIN: Warm, dry, no laceration, no petechiae, no rashes or lesions. Course Orders Ordered: ED Orders 07/24/21 13:12 Urine Microscopic Stat Discontinued Medications Diphenhydramine HCl (Diphenhydramine 50 Mg/Ml Vial) 25 mg IV NOW ONE Stop: 07/24/21 09:13 Last Admin: 07/24/21 09:28 Dose: 25 mg Documented by: PASCUALTONSparkle Hydromorphone HCl (Hydromorphone 0.5 Mg Inj) 0.5 mg IV NOW ONE Stop: 07/24/21 07:30 Last Admin: 07/24/21 07:39 Dose: 0.5 mg Documented by: SUNNI Hydromorphone HCl (Hydromorphone 1 Mg Inj) 1 mg IV NOW ONE Stop: 07/24/21 09:04 Last Admin: 07/24/21 09:25 Dose: 1 mg Documented by: SUNNI Sodium Chloride (Normal Saline 0.9%) 1,000 mls @ 1,000 mls/hr IV CONT SHEFALI Last Infusion: 07/24/21 09:00 Dose: 0 mls/hr Documented by: Admin: 07/24/21 07:36 Dose: 1,000 mls/hr Documented by: SUNNI Ketorolac Tromethamine (Ketorolac 30 Mg/Ml Vial) 15 mg IV NOW ONE Stop: 07/24/21 11:06 Last Admin: 07/24/21 11:18 Dose: 15 mg Documented by: SUNNI Lorazepam (Lorazepam 2 Mg/Ml Inj) 1 mg IV NOW ONE Stop: 07/24/21 12:43 Last Admin: 07/24/21 13:02 Dose: 1 mg Documented by: SUNNI Methylprednisolone (Methylprednisolone 125 Mg/2 Ml Vial) 125 mg IV NOW ONE Stop: 07/24/21 09:13 Last Admin: 07/24/21 09:27 Dose: 125 mg Documented by: SUNNI Metoclopramide HCl (Metoclopramide 10 Mg/2 Ml Inj) 10 mg IV NOW ONE Stop: 07/24/21 11:05 Last Admin: 07/24/21 11:17 Dose: 10 mg Documented by: SUNNI Ondansetron HCl (Ondansetron 4 Mg/2 Ml Inj) 4 mg IV NOW ONE Stop: 07/24/21 07:28 Last Admin: 07/24/21 07:36 Dose: 4 mg Documented by: SUNNI Pantoprazole Sodium (Pantoprazole 40 Mg Vial) 40 mg IV NOW ONE Stop: 07/24/21 07:28 Last Admin: 07/24/21 07:40 Dose: 40 mg Documented by: SUNNI Vital Signs Vital signs: Vital Signs - 8 hr 07/24/21 10:48 07/24/21 11:00 07/24/21 11:30 Pulse Rate 63 66 69 Respiratory Rate 16 22 23 Blood Pressure 151/86 H 161/80 H Pulse Oximetry 98 94 93 07/24/21 11:31 07/24/21 12:00 07/24/21 12:35 Pulse Rate 58 L 65 96 H Respiratory Rate 21 Blood Pressure 152/78 H 149/87 H Pulse Oximetry 94 97 99 07/24/21 12:37 07/24/21 13:00 07/24/21 13:01 Pulse Rate 89 79 72 Respiratory Rate 33 H 16 15 Blood Pressure 184/83 H 181/81 H Pulse Oximetry 98 96 94 07/24/21 13:30 07/24/21 13:31 07/24/21 14:00 Pulse Rate 64 70 66 Respiratory Rate 18 18 25 H Blood Pressure 175/94 H Pulse Oximetry 94 91 93 07/24/21 14:01 07/24/21 14:30 07/24/21 14:31 Pulse Rate 67 78 70 Respiratory Rate 24 24 21 Blood Pressure 199/91 H 160/70 H Pulse Oximetry 96 97 97 MDM - Abdominal Pain Lab Data Result diagrams: 07/24/21 07:29 07/24/21 07:29 Labs: Lab Results 07/24/21 07/24/21 07/24/21 Range/Units 07:29 07:29 13:12 WBC 15.4 H (4.5-11.0) X10^3/uL RBC 5.08 (4.0-5.2) X10^6/uL Hgb 15.2 (12.0-16.0) g/dL Hct 44.1 (36-46) % MCV 86.8 (80-100) fL MCH 30.0 (26-34) PG MCHC 34.5 (30-36) % RDW 12.6 (11.6-14.8) % Plt Count 315 (150-400) X10^3/uL Neut % (Auto) 87.0 H (50-75) % Lymph % (Auto) 10.5 L (25-40) % [place] % (Auto) 2.0 L (3-14) % Eos % (Auto) 0.1 L (2-4) % Baso % (Auto) 0.4 (0-2) % Neut # (Auto) 12249 H (7859-6595) /uL Lymph # (Auto) 1600 (9776-6275) /uL [place] # (Auto) 300 (0-900) /uL Eos # (Auto) 0 (0-450) /uL Baso # (Auto) 100 (0-100) /uL Sodium 141 (137-145) mmol/L Potassium 3.2 L (3.4-5.1) mmol/L Chloride 107 (98-107) mmol/L Carbon Dioxide 22 (22-32) mmol/L BUN 21 H (7-17) mg/dL Creatinine 0.80 (0.52-1.04) mg/dL Estimated GFR > 60 (>60) mL/min BUN/Creatinine Ratio 26.3 H (6-22) Glucose 222 H (70-100) mg/dL Calcium 9.1 (8.4-10.2) mg/dL Total Bilirubin 0.5 (0.2-1.3) mg/dL AST 23 (14-36) IU/L ALT 23 (<35) IU/L Alkaline Phosphatase 124 (38-126) U/L Total Creatine Kinase 92 (30-135) U/L CK-MB (CK-2) TNP CK-MB (CK-2) Rel Index TNP Troponin I < 0.012 (0.01-0.034) ng/mL Total Protein 8.1 (6.3-8.2) g/dL Albumin 4.7 (3.5-5.0) g/dL Globulin 3.4 (1.7-4.1) g/dL Albumin/Globulin Ratio 1.4 (1.0-2.8) Lipase 93 (23-300) U/L Urine RBC 0-1/hpf (0-5/HPF) Urine WBC 0-1/hpf (0-5/HPF) Ur Squamous Epith Cells 1-5 /hpf (0-5/HPF) Uric Acid Crystals Many H (None) Urine Bacteria Few (2-10) H (None) Ur Culture Indicated? Cult not indicated Point of care testing: Urine Dip Bedside Urine Glucose 250 mg/dl Bedside Urine Bilirubin - Negative Bedside Urine Ketone ++ 40 Urine Specific [place] 1.025 Bedside Urine Occult Blood + Bedside Urine pH 6.0 Bedside Urine Protein +/- 15 Bedside Urine Urobilinogen - Negative Bedside Urine Nitrite - Negative Bedside Urine Leukocytes - Negative Esterase Imaging Data CT scan - abdomen/pelvis: Radiologist's Impression: MR#: [id number] : 1965 Acct:[id number] Age/Sex: 55 / F Date of Service: 07/24/21 Loc: ED Accession Number: [id number] ?? Procedure: CT abdomen pelvis w con Ordering Provider: Shannan Lira D.O. PROCEDURE:? CT ABDOMEN PELVIS W CON ? INDICATIONS:? pain periumbilical ? TECHNIQUE:? After the administration of intravenous contrast, axial sections acquired from the lung bases to the pubic symphysis.? Coronal and sagittal reformats were performed.? For radiation dose reduction, the following was used:? automated exposure control, adjustment of mA and/or kV according to patient size.? ? COMPARISON:? [facility], CT, CT ABDOMEN PELVIS W CON, 06/11/2020, 22:45. ? FINDINGS:? Image quality:? Excellent.? ? Lung bases:? Unremarkable. Heart:? No significant findings.? No significant change in pericardial cyst, slightly greater than 4 cm. ? ABDOMEN: Liver:? Unremarkable.? ? Gallbladder:? Surgically absent.? ? Biliary ducts:? Unremarkable.? ? Pancreas:? Unremarkable.? ? Spleen:? Unremarkable.? ? Adrenal Glands:? Unremarkable.? ? Kidneys and Ureters:? Unremarkable.? ? ? Stomach and Bowel:? Small hiatal hernia.? Stomach, small bowel loops, and colon are unremarkable.? Mobile cecum incidentally noted.? Normal appendix. Peritoneum:? No abnormal intraperitoneal fluid.? No free air.? ? Ventral Wall: ? Small fat containing umbilical hernia. Abdominal Nodes:? No retroperitoneal or mesenteric adenopathy by size criteria.? Vessels:? Aorta and inferior vena cava are normal in size.? ? PELVIS: Pelvic Organs:? Unremarkable.? ? Bladder:? Unremarkable.? ? Pelvic Nodes: No enlarged lymph nodes.? Miscellaneous: No hernias are seen. ? ? ? Bones:? Mild lumbar degenerative change.? No lytic or blastic bony lesions.? No compression fractures.? ? IMPRESSION:? ? 1. No evidence of acute abdominal process. ? 2. Small fat containing umbilical hernia. ? 3. Remote cholecystectomy. ? 4. Stable benign left pericardial cyst. ? 5. Small hiatal hernia. ? 6. Incidental note made of mobile cecum.? ? ? Dictated by: Raoul Barton M.D. on 07/24/2021 at 10:11 ? ? Approved by: Raoul Barton M.D. on 07/24/2021 at 10:15 ? ECG Data Interpretation: Sinus arrhythmia rate 61 KS interval 148 QRS [address] changes P-waves noted before every QRS MDM Narrative Medical decision making narrative: The patient is having abdominal pain nausea vomiting. She actually has not vomited in the ED since receiving anti nausea medication. Still feels nauseous and having pain. CT does not show any abnormality however patient continues to feel nauseous and in pain. She is given Reglan Zofran and finally Ativan. Ativan seems to help her the most. She does require a couple L of oxygen while sleeping. She does wake up and when is awake and alert no longer needs oxygen. His patient and has been are feeling ready and able to go. She is tolerating ice chips. At this time no need for admission or hospitalization. She does have mild leukocytosis but no infection. Unclear if nausea vomiting and diarrhea are infectious. It is possible her diarrhea is from the metformin. However the metformin is unlikely to be causing her severe abdominal pain and vomiting. Discharge Plan Departure Patient Disposition: Home Clinical Impression: Gastroenteritis Instructions: DI for Viral Gastroenteritis -- Adult Activity Restrictions/Additional Instructions: 1) You have been diagnosed with gastroenteritis Your symptoms may or may not be related to your recently started metformin. Please follow-up with your primary care provider 2) What to do: Drink frequent but small amounts of fluids. I recommend Gatorade or a Gatorade-like product, as it has small amounts of sugar and salts that improve fluid retention. 3) Take medications as directed Zofran 4 mg every 8 hours needed for nausea vomiting [place] 1 tablet every 6 hours if needed for pain--do not take until fully awake, this can stop your breathing 4) Follow up with your primary care provider in 2-3 days 5) Return to ER if you should have any new or worsening symptoms such as, unable to hold down fluids despite use of anti-nausea medications and the small volume oral rehydration strategy. CONTROLLED SUBSTANCE DISCHARGE (Narcotoic/benzodiazepine/Flexeril/Phenergan) 1. You have been prescribed narcotic medications, it does have acetaminophen/Tylenol/paracetamol in it, DO NOT TAKE MORE THAN 4,00mg in 24 hours of Tylenol. TRAMADOL DOES NOT CONTAIN TYLENOL 2. Please understand that we cannot provide further refills of narcotics, benzodiazepines or controlled substances through the ED and her pain management will need to be through your provider. 3. While on these medications you cannot drive or operate heavy machinery. 4. You cannot sign legal documents or perform any duties such as this. 5. As long as you're taking opiate pain medications he should also be taking a stool softener such as Colace, Dulcolax, MiraLAX or prune juice, to help avoid constipation. Prescriptions: New hydrocodone-acetaminophen 5-325 mg tablet 1 tab PO Q6H PRN (Reason: pain) Qty: 10 0RF ondansetron 4 mg tablet,disintegrating 4 mg PO Q8H PRN (Reason: nausea and vomiting) Qty: 10 0RF No Action ondansetron 4 mg tablet,disintegrating 4 mg PO Q6-8H PRN (Reason: nausea and vomiting) Qty: 10 0RF Referrals: Lynda Sawant MD [Primary Care Provider] -
[2021-07-24] MEDS: ONDANSETRON 4 MG/2 ML INJ IV (07:36)
[2021-07-24] MEDS: SODIUM CHLORIDE 0.9% 1,000 ML 1000 ML IV (07:36)
[2021-07-24] MEDS: HYDROMORPHONE 0.5 MG INJ IV (07:39)
[2021-07-24] MEDS: PANTOPRAZOLE 40 MG VIAL IV (07:40)
[2021-07-24 07:49] LABS: Add Manual Diff / Slide Review NO; Basophils Absolute Auto 100 /uL (0-100); Basophils Percent Auto 0.4 % (0-2); Eosinophils Absolute Auto 0 /uL (0-450); Eosinophils Percent Auto 0.1 % (2-4); Hematocrit 44.1 % (36-46); Hemoglobin 15.2 g/dL (12.0-16.0); Lymphocytes Absolute Auto 1600 /uL (1100-4500); Lymphocytes Percent Auto 10.5 % (25-40); Mean Corpuscular HGB Conc 34.5 % (30-36); Mean Corpuscular Volume 86.8 fL (80-100); Monocytes Absolute Auto 300 /uL (0-900); Neutrophils Absolute Auto 13400 /uL (1500-7000); Platelet Count 315 X10^3/uL (150-400); Red Blood Cell Count 5.08 X10^6/uL (4.0-5.2); Red Cell Distribution Width 12.6 % (11.6-14.8); White Blood Cell Count 15.4 X10^3/uL (4.5-11.0)
[2021-07-24 08:01] LABS: Alanine Aminotransferase 23 IU/L (<35); Albumin 4.7 g/dL (3.5-5.0); Albumin Globulin Ratio 1.4 (1.0-2.8); Alkaline Phosphatase 124 U/L (38-126); Aspartate Aminotransferase 23 IU/L (14-36); BUN Creatinine Ratio 26.3 (6-22); Bilirubin Total 0.5 mg/dL (0.2-1.3); Blood Urea Nitrogen 21 mg/dL (7-17); Calcium 9.1 mg/dL (8.4-10.2); Carbon Dioxide 22 mmol/L (22-32); Chloride 107 mmol/L (98-107); Creatine Kinase 92 U/L (30-135); Estimated Glomerular Filt Rate > 60 mL/min (>60); Globulin 3.4 g/dL (1.7-4.1); Glucose 222 mg/dL (70-100); HEMOLYSIS < 15 (0-50); Lipase 93 U/L (23-300); Potassium 3.2 mmol/L (3.4-5.1); Sodium 141 mmol/L (137-145); Total Protein 8.1 g/dL (6.3-8.2)
[2021-07-24 08:13] LABS: Troponin I < 0.012 ng/mL (0.01-0.034)
--- NOTE | 2021-07-24 09:03 | DI.CT.S_ITS ---
PROCEDURE: CT ABDOMEN PELVIS W CON INDICATIONS: pain periumbilical TECHNIQUE: After the administration of intravenous contrast, axial sections acquired from the lung bases to the pubic symphysis. Coronal and sagittal reformats were performed. For radiation dose reduction, the following was used: automated exposure control, adjustment of mA and/or kV according to patient size. COMPARISON: [facility], CT, CT ABDOMEN PELVIS W CON, 06/11/2020, 22:45. FINDINGS: Image quality: Excellent. Lung bases: Unremarkable. Heart: No significant findings. No significant change in pericardial cyst, slightly greater than 4 cm. ABDOMEN: Liver: Unremarkable. Gallbladder: Surgically absent. Biliary ducts: Unremarkable. Pancreas: Unremarkable. Spleen: Unremarkable. Adrenal Glands: Unremarkable. Kidneys and Ureters: Unremarkable. Stomach and Bowel: Small hiatal hernia. Stomach, small bowel loops, and colon are unremarkable. Mobile cecum incidentally noted. Normal appendix. Peritoneum: No abnormal intraperitoneal fluid. No free air. Ventral Wall: Small fat containing umbilical hernia. Abdominal Nodes: No retroperitoneal or mesenteric adenopathy by size criteria. Vessels: Aorta and inferior vena cava are normal in size. PELVIS: Pelvic Organs: Unremarkable. Bladder: Unremarkable. Pelvic Nodes: No enlarged lymph nodes. Miscellaneous: No hernias are seen. Bones: Mild lumbar degenerative change. No lytic or blastic bony lesions. No compression fractures. IMPRESSION: 1. No evidence of acute abdominal process. 2. Small fat containing umbilical hernia. 3. Remote cholecystectomy. 4. Stable benign left pericardial cyst. 5. Small hiatal hernia. 6. Incidental note made of mobile cecum. Dictated by: Raoul Barton M.D. on 07/24/2021 at 10:11 Approved by: Raoul Barton M.D. on 07/24/2021 at 10:15
[2021-07-24] MEDS: HYDROMORPHONE 1 MG INJ IV (09:25)
[2021-07-24] MEDS: methylPREDNISolone 125 MG/2 ML VIAL IV (09:27)
[2021-07-24] MEDS: diphenhydrAMINE 50 MG/ML VIAL 25 MG IV (09:28)
[2021-07-24] MEDS: METOCLOPRAMIDE 10 MG/2 ML INJ IV (11:17)
[2021-07-24] MEDS: KETOROLAC 30 MG/ML VIAL 15 MG IV (11:18)
[2021-07-24] MEDS: LORazepam 2 MG/ML INJ 1 MG IV (13:02)
--- NOTE | 2021-07-24 13:20 | PC.NURSE ---
pt reports nausea everytime she drinks or eats an ice cube. states her abdominal pain is worse. oxygen applied for pt falling asleep and oxygen sats decreased to 87percent on RA. denies apnea history
[2021-07-24 13:46] LABS: Bacteria Urine Few (2-10); RBC Urine 0-1/HPF (0-5/HPF); Squamous Epithelial Cell Urine 1-5 /HPF (0-5/HPF); WBC Urine 0-1/HPF (0-5/HPF)
[2021-07-24 13:47] LABS: Culture Indicated Urine Cult Not Indicated; Uric Acid Crystals Urine Many
== END 2021-07-24 15:03 | disposition home or self-care (01) ==
PROVIDERS: Emergency Provider Emergency Medicine; PCP Internal Medicine Geriatric Medicine
DX: K52.9 Noninfective gastroenteritis and colitis, unspecified (principal); I49.9 Cardiac arrhythmia, unspecified
CPT/HCPCS: 36415; 74177; 80053; 81003; 81015; 82550; 83690; 84484; 85025; 93005; 93010; 96361; 96374; 96375; 96376; 99284; C9113; J1170; J1200; J1885; J2060; J2405; J2765; J2930; Q9967

== ENCOUNTER 2021-07-25 06:13 | Observation (INO) | payer OTHER, SELFPAY ==
[2020-06-12 13:32] VITALS: BMI 31.9
[2021-07-25] VITALS (34 sets, daily range): BP systolic 96–200; BP diastolic 52–107; PULSE 64–96; RESP 11–27; TEMP 36.9–37.2; O2SAT 88–99; BMI 34.2
[2021-07-25] MEDS: SODIUM CHLORIDE 0.9% 1,000 ML 1000 ML IV (06:44)
[2021-07-25] MEDS: ONDANSETRON 4 MG/2 ML INJ IV (06:45)
[2021-07-25 06:52] LABS: Hematocrit 42.7 % (36-46); Hemoglobin 14.5 g/dL (12.0-16.0); Mean Corpuscular Hemoglobin 29.6 PG (26-34); Mean Corpuscular Volume 87.1 fL (80-100); Platelet Count 345 X10^3/uL (150-400); Red Blood Cell Count 4.91 X10^6/uL (4.0-5.2); Red Cell Distribution Width 12.9 % (11.6-14.8)
[2021-07-25] MEDS: LORazepam 2 MG/ML INJ 1 MG IV (06:52)
[2021-07-25 06:53] LABS: Albumin Globulin Ratio 1.6 (1.0-2.8); Alkaline Phosphatase 99 U/L (38-126); Aspartate Aminotransferase 29 IU/L (14-36); BUN Creatinine Ratio 19.8 (6-22); Bilirubin Total 0.7 mg/dL (0.2-1.3); Blood Urea Nitrogen 16 mg/dL (7-17); Calcium 9.9 mg/dL (8.4-10.2); Carbon Dioxide 20 mmol/L (22-32); Chloride 107 mmol/L (98-107); Creatine Kinase 176 U/L (30-135); Estimated Glomerular Filt Rate > 60 mL/min (>60); Globulin 3.2 g/dL (1.7-4.1); Glucose 154 mg/dL (70-100); HEMOLYSIS < 15 (0-50); Lipase 141 U/L (23-300); Potassium 3.2 mmol/L (3.4-5.1); Sodium 142 mmol/L (137-145); Total Protein 8.2 g/dL (6.3-8.2)
[2021-07-25 06:56] LABS: Add Manual Diff / Slide Review YES; White Blood Cell Count 32.5 X10^3/uL (4.5-11.0)
[2021-07-25 07:00] LABS: Alanine Aminotransferase 31 IU/L (<35)
[2021-07-25 07:04] LABS: Troponin I < 0.012 ng/mL (0.01-0.034)
[2021-07-25 07:08] LABS: CKMB % Relative Index 1.4 % (1.5-5.0); Creatine Kinase MB 2.47 ng/mL (<2.37)
[2021-07-25 07:19] LABS: Neutrophils Absolute Manual 27950 /uL (3000-5900); Total Cells Counted 100
[2021-07-25 07:20] LABS: RBC Morphology Normal Morphology
--- NOTE | 2021-07-25 07:26 | ED.ABDPAIN ---
HPI - Abdominal Pain General Chief Complaint: Abdominal Pain Stated Complaint: vomiting, minor stomach pains, Time Seen by Provider: 07/25/21 06:14 Source: patient Mode of arrival: Ambulatory History of Present Illness HPI narrative: Patient is a 55-year-old female with newly diagnosed diabetes the 2nd time with nausea vomiting. I saw her yesterday for the same. She had CT the workup blood work was monitored here for numerous hours is eventually discharged home with Zofran and Florence. She actually did well at home. Has an states that she got a Zofran and Florence around 8:00 p.m. and has been doing okay until around 4:00 a.m. when she started vomiting. She again is unable to keep anything down. She has severe burning in her chest. She is having all over abdominal pain again. She actually was able to keep 8-12 oz of fluid down according to the last night. She is unable to stop throwing up now. She appears extremely uncomfortable is complaining of severe burning in her chest. She states that she vomited up coffee-ground emesis and some bright red blood as well. She has not had any diarrhea. Related Data Home Medications Medication Instructions Recorded Confirmed metformin 500 mg tablet 500 mg PO DAILY 07/25/21 07/25/21 metoprolol succinate 50 mg PO DAILY 07/25/21 07/25/21 Previous Rx's Medication Instructions Recorded ondansetron 4 mg disintegrating 4 mg PO Q6-8H PRN #10 tab 05/01/18 tablet hydrocodone 5 mg-acetaminophen 325 1 tab PO Q6H PRN #10 tab 07/24/21 mg tablet ondansetron 4 mg disintegrating 4 mg PO Q8H PRN #10 tab 07/24/21 tablet Allergies Allergy/AdvReac Type Severity Reaction Status Date / Time shellfish derived Allergy Intermediate Verified 07/24/21 08:24 [SHELLFISH DERIVED] codeine [CODEINE] Allergy Unknown Verified 07/24/21 08:24 Penicillins [PENICILLINS] Allergy Unknown Verified 07/24/21 08:24 Tetracyclines [TETRACYCLINES] Allergy Unknown Verified 07/24/21 08:24 IV CONTRAST Allergy Intermediate Uncoded 07/24/21 08:24 Review of Systems Review of Systems Narrative: GENERAL: Denies chills, fatigue, malaise, fever, sweats, travel HEENT: Denies sinus pain, ear pain, sore throat, difficulty swallowing, neck pain RESPIRATORY: Denies dyspnea, cough, wheezing, hemoptysis, sputum. CARDIOVASCULAR: Denies chest pain, palpitations, orthopnea, edema GASTROINTESTINAL: Denies nausea, vomiting, abdominal pain, diarrhea, constipation, melena. : Denies dysuria, frequency, incontinence, hematuria, urinary retention, flank pain. MUSCULOSKELETAL: Denies weakness, joint pain, or bony pain SKIN: No rash, no erythema, no pruritus NEUROLOGIC: Denies weakness, dizziness, headache, numbness, change in speech, confusion PSYCHIATRIC: No concerning psychosocial issues. 12 point review of systems is negative except for those stated above and HPI Patient History Medical History (Updated 07/25/21 @ 13:59 by Shannan Lira DO) Cyclic vomiting syndrome Migraine UTI (urinary tract infection) Surgical History (System 07/24/21 @ 08:24 by Ofe Tracy) Status post cholecystectomy Status post tubal ligation Social History (System 07/24/21 @ 08:24 by Ofe Tracy) household members: spouse Smoking Status: Never smoker Smoking Status: Never smoker alcohol intake frequency: holidays/special occasions only Substance Use Type: does not use Exam Initial Vital Signs Initial Vital Signs: Vital Signs Temperature 98.4 F 07/25/21 06:24 Pulse Rate 72 07/25/21 06:24 Respiratory Rate 18 07/25/21 06:24 Blood Pressure 183/87 H 07/25/21 06:24 Pulse Oximetry 98 07/25/21 06:24 GENERAL: Alert female appears uncomfortable had actively dry heaving for HEENT: Head atraumatic,EOMI, pupils reactive, face symmetric, moist mucous membranes CARDIOVASCULAR: Regular rate and rhythm without murmurs, rubs or gallops. RESPIRATORY: Breath sounds equal bilaterally, no wheezes rales or rhonchi. ABDOMEN: Soft, no distension diffusely tender EXTREMITIES: Normal range of motion, no clubbing or edema. Neurovascularly intact NEUROLOGICAL: Alert and oriented x4.Normal gait and speech. SKIN: Warm, dry, no laceration, no petechiae, no rashes or lesions. Course Orders Ordered: ED Orders 07/25/21 10:48 EC echo doppler complete Stat 07/25/21 11:10 Trop I [Troponin I] Stat 07/25/21 12:31 Urinalysis and Microscopic Stat Urine Drug Screen, Rapid Stat Enoxaparin Sodium (Enoxaparin 40 Mg/0.4 Ml Syringe) 40 mg SUBCUT DAILY SHEFALI Metoclopramide HCl (Metoclopramide 10 Mg/2 Ml Inj) 5 mg IV Q8HR PRN PRN Reason: Nausea And Vomiting Pantoprazole Sodium (Pantoprazole 40 Mg Vial) 40 mg IV BID SHEFALI Promethazine HCl (Promethazine 25 Mg Tablet) 12.5 mg PO Q6HR PRN PRN Reason: Nausea Discontinued Medications Diphenhydramine HCl (Diphenhydramine 50 Mg/Ml Vial) 25 mg IV NOW ONE Stop: 07/25/21 07:43 Last Admin: 07/25/21 07:50 Dose: 25 mg Documented by: DANNIE Hydromorphone HCl (Hydromorphone 1 Mg Inj) 1 mg IV NOW ONE Stop: 07/25/21 07:04 Last Admin: 07/25/21 09:47 Dose: Not Given Documented by: DERIK Sodium Chloride (Normal Saline 0.9%) 1,000 mls @ 1,000 mls/hr IV BOLUS ONE Stop: 07/25/21 07:27 Last Infusion: 07/25/21 08:41 Dose: 0 mls/hr Documented by: Admin: 07/25/21 06:44 Dose: 1,000 mls/hr Documented by: BRANDO Cefepime HCl 2 gm/ Sodium (Chloride) 100 mls @ 200 mls/hr IV NOW ONE Stop: 07/25/21 07:04 Last Infusion: 07/25/21 08:45 Dose: 0 mls/hr Documented by: Admin: 07/25/21 07:37 Dose: 200 mls/hr Documented by: DANNIE Metronidazole (Flagyl) 500 mg in 100 mls @ 100 mls/hr IV NOW ONE Stop: 07/25/21 08:02 Last Infusion: 07/25/21 10:00 Dose: 0 mls/hr Documented by: Admin: 07/25/21 08:41 Dose: 100 mls/hr Documented by: DANNIE Lactated Ringer's (Lactated Ringers) 2,789.58 mls @ 929.86 mls/hr 30 ml/kg infuse over 3 hr (2789.58 ml) IV NOW ONE Stop: 07/25/21 10:37 Last Infusion: 07/25/21 13:07 Dose: 0 mls/hr Documented by: Admin: 07/25/21 08:33 Dose: 929.86 mls/hr Documented by: DANNIE Vancomycin HCl (Vancomycin) 1,250 mg in 250 mls @ 250 mls/hr IV NOW ONE Stop: 07/25/21 11:34 Last Infusion: 07/25/21 12:46 Dose: 0 mls/hr Documented by: Admin: 07/25/21 11:37 Dose: 250 mls/hr Documented by: ASHLEY Lactated Ringer's (Lactated Ringers) 1,000 mls @ 1,000 mls/hr IV BOLUS ONE Stop: 07/25/21 14:04 Last Infusion: 07/25/21 14:59 Dose: 0 mls/hr Documented by: Admin: 07/25/21 13:14 Dose: 1,000 mls/hr Documented by: ASHLEY Lorazepam (Lorazepam 2 Mg/Ml Inj) 1 mg IV NOW ONE Stop: 07/25/21 06:48 Last Admin: 07/25/21 06:52 Dose: 1 mg Documented by: BRANDO Methylprednisolone (Methylprednisolone 125 Mg/2 Ml Vial) 125 mg IV NOW ONE Stop: 07/25/21 07:43 Last Admin: 07/25/21 07:50 Dose: 125 mg Documented by: DANNIE Metoclopramide HCl (Metoclopramide 10 Mg/2 Ml Inj) 10 mg IV NOW ONE Stop: 07/25/21 10:38 Last Admin: 07/25/21 10:55 Dose: 10 mg Documented by: DERIK Ondansetron HCl (Ondansetron 4 Mg/2 Ml Inj) 4 mg IV NOW ONE Stop: 07/25/21 06:29 Last Admin: 07/25/21 06:45 Dose: 4 mg Documented by: BRANDO Pantoprazole Sodium (Pantoprazole 40 Mg Vial) 40 mg IV NOW ONE Stop: 07/25/21 07:28 Last Admin: 07/25/21 07:32 Dose: 40 mg Documented by: DANNIE Vital Signs Vital signs: Vital Signs - 8 hr 07/25/21 11:30 07/25/21 11:31 07/25/21 12:01 Temperature 98.6 F Pulse Rate 92 H 92 H 84 Respiratory Rate 24 24 24 Blood Pressure 105/54 L Pulse Oximetry 94 94 93 07/25/21 12:04 07/25/21 12:13 07/25/21 12:15 Temperature Pulse Rate 93 H 89 86 Respiratory Rate 27 H 24 25 H Blood Pressure 96/52 L 140/60 138/65 Pulse Oximetry 94 92 07/25/21 12:30 07/25/21 12:34 07/25/21 12:45 Temperature Pulse Rate 88 85 89 Respiratory Rate 22 22 22 Blood Pressure 119/58 L 107/56 L Pulse Oximetry 90 L 93 93 07/25/21 13:00 07/25/21 13:15 07/25/21 13:30 Temperature Pulse Rate 96 H 96 H 80 Respiratory Rate 21 21 23 Blood Pressure 112/59 L 119/58 L 125/60 Pulse Oximetry 92 92 92 07/25/21 13:45 07/25/21 14:00 07/25/21 14:15 Temperature Pulse Rate 96 H 87 64 Respiratory Rate 22 26 H 20 Blood Pressure 117/56 L 149/107 H 151/78 H Pulse Oximetry 97 95 95 07/25/21 14:30 07/25/21 14:45 07/25/21 15:00 Temperature Pulse Rate 73 84 88 Respiratory Rate 22 22 23 Blood Pressure 132/78 134/75 139/79 Pulse Oximetry 95 95 07/25/21 15:15 Temperature Pulse Rate 76 Respiratory Rate 22 Blood Pressure 128/84 Pulse Oximetry MDM - Abdominal Pain Lab Data Result diagrams: 07/25/21 06:30 07/25/21 06:30 Labs: Lab Results 07/25/21 07/25/21 07/25/21 Range/Units 06:30 06:30 06:30 WBC 32.5 H* D (4.5-11.0) X10^3/uL RBC 4.91 (4.0-5.2) X10^6/uL Hgb 14.5 (12.0-16.0) g/dL Hct 42.7 (36-46) % MCV 87.1 (80-100) fL MCH 29.6 (26-34) PG MCHC 34.0 (30-36) % RDW 12.9 (11.6-14.8) % Plt Count 345 (150-400) X10^3/uL Neut % (Auto) Not Reportable Lymph % (Auto) Not Reportable [place] % (Auto) Not Reportable Eos % (Auto) Not Reportable Baso % (Auto) Not Reportable Lymph # (Auto) Not Reportable [place] # (Auto) Not Reportable Baso # (Auto) Not Reportable Total Counted 100 Seg Neutrophils % 85.0 H (38-70) % Band Neutrophils % 1.0 L (3-7) % Lymphocytes % (Manual) 9.0 L (25-45) % Atypical Lymphs % 2.0 H ( - 0) % Monocytes % (Manual) 3.0 (2-11) % Neutrophils # (Manual) 64041 H (3912-4481) /uL RBC Morphology Normal morphology Sodium 142 (137-145) mmol/L Potassium 3.2 L (3.4-5.1) mmol/L Chloride 107 (98-107) mmol/L Carbon Dioxide 20 L (22-32) mmol/L BUN 16 (7-17) mg/dL Creatinine 0.81 (0.52-1.04) mg/dL Estimated GFR > 60 (>60) mL/min BUN/Creatinine Ratio 19.8 (6-22) Glucose 154 H (70-100) mg/dL Lactate 5.0 H* (0.7-2.1) mmol/L Calcium 9.9 (8.4-10.2) mg/dL Total Bilirubin 0.7 (0.2-1.3) mg/dL AST 29 (14-36) IU/L ALT 31 (<35) IU/L Alkaline Phosphatase 99 (38-126) U/L Total Creatine Kinase 176 H (30-135) U/L CK-MB (CK-2) 2.47 H (<2.37) ng/mL CK-MB (CK-2) Rel Index 1.4 L (1.5-5.0) % Troponin I < 0.012 (0.01-0.034) ng/mL Total Protein 8.2 (6.3-8.2) g/dL Albumin 5.0 (3.5-5.0) g/dL Globulin 3.2 (1.7-4.1) g/dL Albumin/Globulin Ratio 1.6 (1.0-2.8) Lipase 141 D (23-300) U/L Procalcitonin (<0.5) ng/mL Urine Color Urine Appearance Urine pH (4.5-8.0) Ur Specific [place] (1.000-1.035) Urine Protein (Negative) Urine Glucose (UA) (Negative) g/dL Urine Ketones (NEGATIVE) Urine Occult Blood (Negative) Urine Nitrate (Negative) Urine Bilirubin (NEGATIVE) Urine Urobilinogen (0.2) E.U./dL Ur Leukocyte Esterase (NEGATIVE) Urine RBC (0-5/HPF) Urine WBC (0-5/HPF) Ur Squamous Epith Cells (0-5/HPF) Urine Bacteria (None) Hyaline Casts (None) Ur Culture Indicated? U Opiates 300ng/mL cut (Negative) Ur Oxycodone Screen (Negative) Urine Methadone Screen (Negative) Ur Barbiturates Screen (Negative) U Tricyclic Antidepress (Negative) Ur Phencyclidine Scrn (Negative) Ur Amphetamines Screen (Negative) U Methamphetamines Scrn (Negative) Ur MDMA Scrn (Ecstasy) (Negative) U Benzodiazepines Scrn (Negative) Urine Cocaine Screen (Negative) U Marijuana (THC) Screen (Negative) Ethyl Alcohol ( - 10) mg/dL SARS-CoV-2 (PCR) (Negative) 07/25/21 07/25/21 07/25/21 Range/Units 06:30 06:30 09:25 WBC (4.5-11.0) X10^3/uL RBC (4.0-5.2) X10^6/uL Hgb (12.0-16.0) g/dL Hct (36-46) % MCV (80-100) fL MCH (26-34) PG MCHC (30-36) % RDW (11.6-14.8) % Plt Count (150-400) X10^3/uL Neut % (Auto) Lymph % (Auto) [place] % (Auto) Eos % (Auto) Baso % (Auto) Lymph # (Auto) [place] # (Auto) Baso # (Auto) Total Counted Seg Neutrophils % (38-70) % Band Neutrophils % (3-7) % Lymphocytes % (Manual) (25-45) % Atypical Lymphs % ( - 0) % Monocytes % (Manual) (2-11) % Neutrophils # (Manual) (7073-3969) /uL RBC Morphology Sodium (137-145) mmol/L Potassium (3.4-5.1) mmol/L Chloride (98-107) mmol/L Carbon Dioxide (22-32) mmol/L BUN (7-17) mg/dL Creatinine (0.52-1.04) mg/dL Estimated GFR (>60) mL/min BUN/Creatinine Ratio (6-22) Glucose (70-100) mg/dL Lactate (0.7-2.1) mmol/L Calcium (8.4-10.2) mg/dL Total Bilirubin (0.2-1.3) mg/dL AST (14-36) IU/L ALT (<35) IU/L Alkaline Phosphatase (38-126) U/L Total Creatine Kinase (30-135) U/L CK-MB (CK-2) (<2.37) ng/mL CK-MB (CK-2) Rel Index (1.5-5.0) % Troponin I (0.01-0.034) ng/mL Total Protein (6.3-8.2) g/dL Albumin (3.5-5.0) g/dL Globulin (1.7-4.1) g/dL Albumin/Globulin Ratio (1.0-2.8) Lipase (23-300) U/L Procalcitonin 0.06 (<0.5) ng/mL Urine Color Urine Appearance Urine pH (4.5-8.0) Ur Specific [place] (1.000-1.035) Urine Protein (Negative) Urine Glucose (UA) (Negative) g/dL Urine Ketones (NEGATIVE) Urine Occult Blood (Negative) Urine Nitrate (Negative) Urine Bilirubin (NEGATIVE) Urine Urobilinogen (0.2) E.U./dL Ur Leukocyte Esterase (NEGATIVE) Urine RBC (0-5/HPF) Urine WBC (0-5/HPF) Ur Squamous Epith Cells (0-5/HPF) Urine Bacteria (None) Hyaline Casts (None) Ur Culture Indicated? U Opiates 300ng/mL cut (Negative) Ur Oxycodone Screen (Negative) Urine Methadone Screen (Negative) Ur Barbiturates Screen (Negative) U Tricyclic Antidepress (Negative) Ur Phencyclidine Scrn (Negative) Ur Amphetamines Screen (Negative) U Methamphetamines Scrn (Negative) Ur MDMA Scrn (Ecstasy) (Negative) U Benzodiazepines Scrn (Negative) Urine Cocaine Screen (Negative) U Marijuana (THC) Screen (Negative) Ethyl Alcohol < 10 ( - 10) mg/dL SARS-CoV-2 (PCR) Negative (Negative) 07/25/21 07/25/21 07/25/21 Range/Units 09:52 11:10 12:31 WBC (4.5-11.0) X10^3/uL RBC (4.0-5.2) X10^6/uL Hgb (12.0-16.0) g/dL Hct (36-46) % MCV (80-100) fL MCH (26-34) PG MCHC (30-36) % RDW (11.6-14.8) % Plt Count (150-400) X10^3/uL Neut % (Auto) Lymph % (Auto) [place] % (Auto) Eos % (Auto) Baso % (Auto) Lymph # (Auto) [place] # (Auto) Baso # (Auto) Total Counted Seg Neutrophils % (38-70) % Band Neutrophils % (3-7) % Lymphocytes % (Manual) (25-45) % Atypical Lymphs % ( - 0) % Monocytes % (Manual) (2-11) % Neutrophils # (Manual) (4945-5125) /uL RBC Morphology Sodium (137-145) mmol/L Potassium (3.4-5.1) mmol/L Chloride (98-107) mmol/L Carbon Dioxide (22-32) mmol/L BUN (7-17) mg/dL Creatinine (0.52-1.04) mg/dL Estimated GFR (>60) mL/min BUN/Creatinine Ratio (6-22) Glucose (70-100) mg/dL Lactate 1.6 (0.7-2.1) mmol/L Calcium (8.4-10.2) mg/dL Total Bilirubin (0.2-1.3) mg/dL AST (14-36) IU/L ALT (<35) IU/L Alkaline Phosphatase (38-126) U/L Total Creatine Kinase (30-135) U/L CK-MB (CK-2) (<2.37) ng/mL CK-MB (CK-2) Rel Index (1.5-5.0) % Troponin I < 0.012 (0.01-0.034) ng/mL Total Protein (6.3-8.2) g/dL Albumin (3.5-5.0) g/dL Globulin (1.7-4.1) g/dL Albumin/Globulin Ratio (1.0-2.8) Lipase (23-300) U/L Procalcitonin (<0.5) ng/mL Urine Color Urine Appearance Urine pH (4.5-8.0) Ur Specific [place] (1.000-1.035) Urine Protein (Negative) Urine Glucose (UA) (Negative) g/dL Urine Ketones (NEGATIVE) Urine Occult Blood (Negative) Urine Nitrate (Negative) Urine Bilirubin (NEGATIVE) Urine Urobilinogen (0.2) E.U./dL Ur Leukocyte Esterase (NEGATIVE) Urine RBC (0-5/HPF) Urine WBC (0-5/HPF) Ur Squamous Epith Cells (0-5/HPF) Urine Bacteria (None) Hyaline Casts (None) Ur Culture Indicated? U Opiates 300ng/mL cut Positive H (Negative) Ur Oxycodone Screen Negative (Negative) Urine Methadone Screen Negative (Negative) Ur Barbiturates Screen Negative (Negative) U Tricyclic Antidepress Negative (Negative) Ur Phencyclidine Scrn Negative (Negative) Ur Amphetamines Screen Negative (Negative) U Methamphetamines Scrn Negative (Negative) Ur MDMA Scrn (Ecstasy) Negative (Negative) U Benzodiazepines Scrn Positive H (Negative) Urine Cocaine Screen Negative (Negative) U Marijuana (THC) Screen Positive H (Negative) Ethyl Alcohol ( - 10) mg/dL SARS-CoV-2 (PCR) (Negative) 07/25/21 Range/Units 12:31 WBC (4.5-11.0) X10^3/uL RBC (4.0-5.2) X10^6/uL Hgb (12.0-16.0) g/dL Hct (36-46) % MCV (80-100) fL MCH (26-34) PG MCHC (30-36) % RDW (11.6-14.8) % Plt Count (150-400) X10^3/uL Neut % (Auto) Lymph % (Auto) [place] % (Auto) Eos % (Auto) Baso % (Auto) Lymph # (Auto) [place] # (Auto) Baso # (Auto) Total Counted Seg Neutrophils % (38-70) % Band Neutrophils % (3-7) % Lymphocytes % (Manual) (25-45) % Atypical Lymphs % ( - 0) % Monocytes % (Manual) (2-11) % Neutrophils # (Manual) (7078-1977) /uL RBC Morphology Sodium (137-145) mmol/L Potassium (3.4-5.1) mmol/L Chloride (98-107) mmol/L Carbon Dioxide (22-32) mmol/L BUN (7-17) mg/dL Creatinine (0.52-1.04) mg/dL Estimated GFR (>60) mL/min BUN/Creatinine Ratio (6-22) Glucose (70-100) mg/dL Lactate (0.7-2.1) mmol/L Calcium (8.4-10.2) mg/dL Total Bilirubin (0.2-1.3) mg/dL AST (14-36) IU/L ALT (<35) IU/L Alkaline Phosphatase (38-126) U/L Total Creatine Kinase (30-135) U/L CK-MB (CK-2) (<2.37) ng/mL CK-MB (CK-2) Rel Index (1.5-5.0) % Troponin I (0.01-0.034) ng/mL Total Protein (6.3-8.2) g/dL Albumin (3.5-5.0) g/dL Globulin (1.7-4.1) g/dL Albumin/Globulin Ratio (1.0-2.8) Lipase (23-300) U/L Procalcitonin (<0.5) ng/mL Urine Color Yellow Urine Appearance Clear Urine pH 5.0 (4.5-8.0) Ur Specific [place] 1.020 (1.000-1.035) Urine Protein 2+ H (Negative) Urine Glucose (UA) Negative (Negative) g/dL Urine Ketones Trace H (NEGATIVE) Urine Occult Blood 1+ H (Negative) Urine Nitrate Negative (Negative) Urine Bilirubin Negative (NEGATIVE) Urine Urobilinogen 0.2 (0.2) E.U./dL Ur Leukocyte Esterase Negative (NEGATIVE) Urine RBC 0-1/hpf (0-5/HPF) Urine WBC 1-5/hpf (0-5/HPF) Ur Squamous Epith Cells 0-1 /hpf (0-5/HPF) Urine Bacteria Occasional (0-1) (None) Hyaline Casts 1-5/lpf (None) Ur Culture Indicated? Cult not indicated U Opiates 300ng/mL cut (Negative) Ur Oxycodone Screen (Negative) Urine Methadone Screen (Negative) Ur Barbiturates Screen (Negative) U Tricyclic Antidepress (Negative) Ur Phencyclidine Scrn (Negative) Ur Amphetamines Screen (Negative) U Methamphetamines Scrn (Negative) Ur MDMA Scrn (Ecstasy) (Negative) U Benzodiazepines Scrn (Negative) Urine Cocaine Screen (Negative) U Marijuana (THC) Screen (Negative) Ethyl Alcohol ( - 10) mg/dL SARS-CoV-2 (PCR) (Negative) Imaging Data CT scan - abdomen/pelvis: Radiologist's Impression: CT Scan Report Signed Patient: Rosemarie Callahan MR#: [id number] : 1965 Acct:[id number] Age/Sex: 55 / F Date of Service: 07/25/21 Loc: ED Accession Number: [id number] ?? Procedure: CT chest abd pel w con Ordering Provider: Shannan Lira D.O. PROCEDURE:? CT CHEST ABD PEL W CON ? INDICATIONS:? persistant vomiting, high lactate, pain chest ab ? TECHNIQUE:? After the administration of oral and intravenous contrast, axial sections acquired from the supraclavicular neck to the pubic symphysis.? Coronal and sagittal reformats were performed.? For radiation dose reduction, the following was used:? automated exposure control, adjustment of mA and/or kV according to patient size.? ? COMPARISON:[facility], CT, ABD/PELVIS W/O CON (PNL), 03/03/2013, 13:22.? [facility], CT, CT ABDOMEN PELVIS W CON, 07/24/2021, 9:46. ? FINDINGS:? Image quality:? Excellent.? ? CHEST: Lower Neck: No enlarged lymph nodes.? Thyroid:? There is a 3 mm calcification in the left thyroid lobe.? Thyroid lobe is otherwise unremarkable. Axillae: No enlarged lymph nodes. Chest Wall:? Unremarkable.? ? Lungs and Airways:? Bibasilar dependent atelectasis.? Bilateral subpleural scars and atelectasis in right middle lobe, lingula, and both lower lobes.? No consolidation or suspicious nodules. Pleura: No pneumothorax or pleural effusions.? ? Heart: Heart size is normal.? Mild coronary artery calcification.? No pericardial effusion.? There is a 4.2 x 4.6 cm pericardial cyst in the right posterior inferior cardiac border adjacent to the right pulmonary veins. Thoracic Vessels: The aorta and pulmonary arteries demonstrate normal size.? Mediastinum and Yessenia: No enlarged lymph nodes.? Esophagus: No wall thickening.? Small hiatal hernia. ? ? ABDOMEN: Liver:? Normal size.? Mild hepatic steatosis..? ? Gallbladder:? Surgically absent.? ? Biliary ducts:? Unremarkable.? ? Pancreas:? Unremarkable.? ? Spleen:? Unremarkable.? ? Adrenal Glands:? Unremarkable.? ? Kidneys and Ureters:? Unremarkable.? ? ? Stomach and Bowel:? Stomach, small bowel loops, and colon are normal in caliber.? Diverticulosis without diverticulitis.? Normal appendix. Peritoneum:? No abnormal intraperitoneal fluid.? No free air.? ? Ventral Wall: ? No hernia.? Abdominal Nodes:? No retroperitoneal or mesenteric adenopathy by size criteria.? Vessels:? Aorta and inferior vena cava are normal in size.? ? PELVIS: Pelvic Organs:? Unremarkable.? ? Bladder:? Unremarkable.? ? Pelvic Nodes: No enlarged lymph nodes.? Miscellaneous: No inguinal hernias are seen. ? ? ? Bones:? Unremarkable.? ? ? IMPRESSION:? ? 1.? No acute abnormalities identified in thorax, abdomen or pelvis. ? 2.? There is a pericardial cyst measuring 4.2 x 4.6 cm along the right posterior cardiac border between the right pulmonary veins. ? 3.? Hepatic steatosis. ? 4. Bibasilar dependent atelectasis.? There also subpleural scars discoid atelectasis in right middle lobe, lingula and both lower lobes.? Dictated by: Teodoro Ingram M.D. on 07/25/2021 at 9:11 ? ? ECG Data Interpretation: Normal sinus rhythm rate 76 MN interval 142 QRS [address] changes home sinus arrhythmia similar to yesterday's EKG MDM Narrative Medical decision making narrative: The patient presents again with nausea and vomiting. However he had significant leukocytosis and lactic acid. WC increased from 15-32 she has not had a lactic acid of 5. Concern for sepsis. She is given the sepsis fluids along with antibiotics. He is complaining of burning in her chest likely from vomiting she has gotten Protonix Ativan she dilaudid and other medications. CT really does not show any cause of her nausea and vomiting. It does show a small pericardial cyst of 4 cm, stable from previous imaging Patient's nausea and vomiting and pain all seem to be controlled. Reglan actually seems to help her the most with nausea and vomiting. 10:45am Discussion with Dr. Samuel who request a discussion with Cardiology in regards to cardiac cyst concerned it may be a source of infection and her symptoms. 10:47 Dr. Mathias, cardiology reports that cardiac cyst is an incidental finding is unlikely the cause of her symptoms. He recommends echocardiogram for evaluation. 1340 Dr. Mathias, read echocardiogram for me I am unable to see the report. May need to call echo for the official report but he did not see any abnormality, EF of 60-65% Dr. Samuel notified of Cardiology and echo report and recommendations and except Discharge Plan Departure Patient Disposition: Admitted As Inpatient Clinical Impression: Intractable vomiting, Gastroenteritis Admit Date/Time: 07/25/21 15:34 Admit Provider: Karen Samuel
[2021-07-25] MEDS: PANTOPRAZOLE 40 MG VIAL IV ×2 (07:32→20:59)
[2021-07-25] MEDS: CEFEPIME 2 GM in SODIUM CHLORIDE 0.9% 100 ML 200 ML IV (07:37)
--- NOTE | 2021-07-25 07:38 | DI.CT.S_ITS ---
PROCEDURE: CT CHEST ABD PEL W CON INDICATIONS: persistant vomiting, high lactate, pain chest ab TECHNIQUE: After the administration of oral and intravenous contrast, axial sections acquired from the supraclavicular neck to the pubic symphysis. Coronal and sagittal reformats were performed. For radiation dose reduction, the following was used: automated exposure control, adjustment of mA and/or kV according to patient size. COMPARISON:[facility], CT, ABD/PELVIS W/O CON (PNL), 03/03/2013, 13:22. [facility], CT, CT ABDOMEN PELVIS W CON, 07/24/2021, 9:46. FINDINGS: Image quality: Excellent. CHEST: Lower Neck: No enlarged lymph nodes. Thyroid: There is a 3 mm calcification in the left thyroid lobe. Thyroid lobe is otherwise unremarkable. Axillae: No enlarged lymph nodes. Chest Wall: Unremarkable. Lungs and Airways: Bibasilar dependent atelectasis. Bilateral subpleural scars and atelectasis in right middle lobe, lingula, and both lower lobes. No consolidation or suspicious nodules. Pleura: No pneumothorax or pleural effusions. Heart: Heart size is normal. Mild coronary artery calcification. No pericardial effusion. There is a 4.2 x 4.6 cm pericardial cyst in the right posterior inferior cardiac border adjacent to the right pulmonary veins. Thoracic Vessels: The aorta and pulmonary arteries demonstrate normal size. Mediastinum and Yessenia: No enlarged lymph nodes. Esophagus: No wall thickening. Small hiatal hernia. ABDOMEN: Liver: Normal size. Mild hepatic steatosis.. Gallbladder: Surgically absent. Biliary ducts: Unremarkable. Pancreas: Unremarkable. Spleen: Unremarkable. Adrenal Glands: Unremarkable. Kidneys and Ureters: Unremarkable. Stomach and Bowel: Stomach, small bowel loops, and colon are normal in caliber. Diverticulosis without diverticulitis. Normal appendix. Peritoneum: No abnormal intraperitoneal fluid. No free air. Ventral Wall: No hernia. Abdominal Nodes: No retroperitoneal or mesenteric adenopathy by size criteria. Vessels: Aorta and inferior vena cava are normal in size. PELVIS: Pelvic Organs: Unremarkable. Bladder: Unremarkable. Pelvic Nodes: No enlarged lymph nodes. Miscellaneous: No inguinal hernias are seen. Bones: Unremarkable. IMPRESSION: 1. No acute abnormalities identified in thorax, abdomen or pelvis. 2. There is a pericardial cyst measuring 4.2 x 4.6 cm along the right posterior cardiac border between the right pulmonary veins. 3. Hepatic steatosis. 4. Bibasilar dependent atelectasis. There also subpleural scars discoid atelectasis in right middle lobe, lingula and both lower lobes. Dictated by: Teodoro Ingram M.D. on 07/25/2021 at 9:11 Approved by: Teodoro Ingram M.D. on 07/25/2021 at 9:20
[2021-07-25 07:40] LABS: Procalcitonin 0.06 ng/mL (<0.5)
[2021-07-25] MEDS: methylPREDNISolone 125 MG/2 ML VIAL IV (07:50)
[2021-07-25] MEDS: diphenhydrAMINE 50 MG/ML VIAL 25 MG IV (07:50)
[2021-07-25 08:01] LABS: Ethanol (ETOH) < 10 mg/dL
[2021-07-25] MEDS: LACTATED RINGERS 2,789.58 ML 929.86 ML IV (08:33)
[2021-07-25] MEDS: metroNIDAZOLE 500 MG/100 ML PIGGYBACK 100 MG IV (08:41)
[2021-07-25 09:14] LABS: Reflexed Lactate in 2 Hours Y
[2021-07-25 09:53] LABS: COVID19 -Nasal RAPID Negative (Negative)
[2021-07-25 10:09] LABS: Lactate 2HR (Lactic Acid Rflx) 1.6 mmol/L (0.7-2.1)
--- NOTE | 2021-07-25 10:47 | DI.ECHO.S_ITS ---
Referring: PANDA PATTEN Clinician: Narendra Smith Reason For Study: Pericardial Effusion History: Summary Statements Normal sinus rhythm. Normal LV size, wall thickness, wall motion and LV systolic function. EF is 60-65%. No valvular abnormalities. Normal chamber sizes. No pericardial effusion. No prior study available for comparison. Procedure: A two-dimensional transthoracic echocardiogram with color flow and Doppler was performed. The study quality was technically adequate. There is no prior echocardiogram noted for this patient. Left Ventricle: Diastolic parameters suggest probable normal left ventricular diastolic function and normal filling pressures. Left ventricular systolic function is normal. The ejection fraction is estimated to be 60-65%. The left ventricle is normal in size and wall thickness. There are no focal wall motion abnormalities. Right Ventricle: The right ventricle is normal in size and function. Atria: The interatrial septum grossly appears intact with no obvious evidence for an atrial septal defect. Both atria are normal in size. Mitral Valve: There is no mitral regurgitation noted. The mitral valve is normal in structure and function. Aortic Valve: No aortic regurgitation is present. The aortic valve is normal in structure and function. Tricuspid Valve: No tricuspid regurgitation. Pulmonary artery pressures cannot be estimated because of the lack of a measurable TR jet velocity. The tricuspid valve is normal in structure and function. Pulmonic Valve: There is mild pulmonic regurgitation. The pulmonic valve is normal in structure and function. Great Vessels: The dimensions of the ascending aorta are normal. The aortic root is normal size. The IVC is of normal diameter and collapses greater than 50% with a sniff. This suggests a low right atrial pressure of 3 mm Hg. Pericardium/ Pleura: There is no pericardial effusion. There is no pleural effusion. 2D and M-Mode Measurements and Calculations LVIDd: 4.6 cm LVOT diam: 2.20 cm LVIDs: 2.8 cm Ao root diam: 2.9 cm IVSd: 0.90 cm asc Aorta Diam: 3.0 cm LVPWd: 1.00 cm LV jonas. diameter/BSA (cm/m^2): 2.25 LV sys. diameter/BSA (cm/m^2): 1.37 TAPSE_phl: 3.5 cm LA A4 area: 14.1 cm?? RA long axis: 5.2 cm LA A2 area: 16.6 cm?? LA length (vol): 5.6 cm LA vol: 35.4 ml LA vol index: 17.3 ml/m?? Doppler Measurements and Calculations Ao V2 max: 142.0 cm/sec LVOT Max Artis: 127.0 cm/sec Ao V2 mean: 93.5 cm/sec LV V1 max P.5 mmHg Ao V2 VTI: 27.9 cm LV V1 VTI: 24.3 cm Ao max P.0 mmHg Ao mean P.0 mmHg PIOTR(I,D): 3.3 cm?? PIOTR(V,D): 3.4 cm?? PIOTR indexed to BSA (cm^2/m^2): 1.62 sev ratio: 0.87 MV E max artis: 108.0 cm/sec MV dec time: 0.20 sec MV A max artis: 82.5 cm/sec MV E/A: 1.31 Med Peak E' Artis: 11.7 cm/sec Lat Peak E' Artis: 13.2 cm/sec E/e' average: 8.7 Electronically signed by: Zuleima Oh M.D. 07/25/2021, 1: 15 PM
[2021-07-25] MEDS: METOCLOPRAMIDE 10 MG/2 ML INJ IV (10:55)
[2021-07-25] MEDS: VANCOMYCIN 1,250 MG/250 ML PIGGYBACK 250 MG IV (11:37)
--- NOTE | 2021-07-25 11:40 | PC.NURSE ---
Pt aaox3/3, breathing even and unlabored. Reports improvement in N/V since Reglan, abdominal pain continues. Dr. Lira aware.
[2021-07-25 12:38] LABS: Appearance Urine UA CLEAR; Bilirubin Urine UA NEGATIVE (NEGATIVE); Color Urine UA YELLOW; Glucose Urine UA NEGATIVE (Negative); Ketones Urine UA TRACE (NEGATIVE); Leukocyte Esterase Urine UA NEGATIVE (NEGATIVE); Nitrite Urine UA NEGATIVE (Negative); Occult Blood Urine UA 1+ (Negative); Protein Urine UA 2+ (Negative); Urobilinogen Urine UA 0.2 E.U./dL (0.2)
[2021-07-25 12:43] LABS: UR Morphine/Opiate cutoff 300 Positive (Negative); Ur Creatinine Normal (Normal); Ur Specific Gravity Normal (Normal); Urine Benzodiazepines Positive (Negative); Urine Cocaine Negative (Negative); Urine Tetrahydrocannabinol Positive (Negative); Urine pH Normal (Normal)
[2021-07-25 12:44] LABS: Urine Amphetamines Negative (Negative); Urine Barbiturates Negative (Negative); Urine MDMA Negative (Negative); Urine Methadone Negative (Negative); Urine Methamphetamines Negative (Negative); Urine Oxycodone Negative (Negative); Urine Phencyclidine Negative (Negative); Urine Tricyclic Antidepressant Negative (Negative)
[2021-07-25 12:54] LABS: Bacteria Urine Occasional (0-1); Culture Indicated Urine Cult Not Indicated; Hyaline Casts Urine 1-5/LPF; RBC Urine 0-1/HPF (0-5/HPF); Squamous Epithelial Cell Urine 0-1 /HPF (0-5/HPF); WBC Urine 1-5/HPF (0-5/HPF)
[2021-07-25 13:01] LABS: Troponin I < 0.012 ng/mL (0.01-0.034)
[2021-07-25] MEDS: LACTATED RINGERS 1,000 ML 1000 ML IV (13:14)
--- NOTE | 2021-07-25 16:14 | P.HP_ITS ---
History of Present Illness History of Present Illness Chief complaint: vomiting, minor stomach pains, Narrative: 55yo female with a hx of recently diagnosed pre-diabetes mellitus II and hypertension that presents with n/v/d. The patient states this all started 4 days ago. She remembers dry heaving at work (she works as an RN at a nearby hospital) and then developed n/v later that night at home. She describes intermittent instances of bright red blood and coffee ground emesis. She denies bright red blood in her stool or melanotic stools. She describes her stools as yellow. She denies copious, watery stools. She reports having 3-5 episodes of vomiting and diarrhea in a day. At the moment, she denies n/v. She denies any respiratory complaints. She reports being vaccinated against COVID, with her second booster given on July 19. She also endorses abd pain after the n/v episodes. She denies any recent sick contacts, or recent travel, or eating of food that might have been spoiled. 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 She also endorses colonoscopy 3 years ago that she says was normal, save for excision of some polys. She denies any personal hx of cancer. Denies smoking tobacco or using EtOH. The patient does admit to smoking 1 joint of marijuana per week. She reports she's been doing this for years without problems. She denies that her n/v improves with hot showers. PSH is remarkable for total hysterectomy and bilateral salpingo-oopherectomy due to concern for ovarian torsion at that time, along with cholecystectomy. Family hx is positive for mother and maternal grandmother with DM II. She lives with her and their dog. Of note, patient had a very similar presentation to this one almost 1 year ago in June 2020. Patient History Medical History (Updated 07/25/21 @ 13:59 by Shannan Lira DO) Cyclic vomiting syndrome Migraine UTI (urinary tract infection) Surgical History (System 07/24/21 @ 08:24 by Ofe Tracy) Status post cholecystectomy Status post tubal ligation Family & Social History Social History: household members spouse Safety & Behavioral: Feels Safe in Current Yes Environment Tobacco & Substance use: Smoking Status Never smoker alcohol intake frequency holiday/special occasion Substance Use Type does not use Meds Home Medications and Allergies Home Medications Medication Instructions Recorded Confirmed Type ondansetron 4 mg disintegrating 4 mg PO Q6-8H PRN #10 tab 05/01/18 07/25/21 Rx tablet hydrocodone 5 mg-acetaminophen 325 1 tab PO Q6H PRN #10 tab 07/24/21 07/25/21 Rx mg tablet ondansetron 4 mg disintegrating 4 mg PO Q8H PRN #10 tab 07/24/21 07/25/21 Rx tablet metformin 500 mg tablet 500 mg PO DAILY 07/25/21 07/25/21 History metoprolol succinate 50 mg PO DAILY 07/25/21 07/25/21 History Allergies Allergy/AdvReac Type Severity Reaction Status Date / Time shellfish derived Allergy Intermediate Verified 07/24/21 08:24 [SHELLFISH DERIVED] codeine [CODEINE] Allergy Unknown Verified 07/24/21 08:24 Penicillins [PENICILLINS] Allergy Unknown Verified 07/24/21 08:24 Tetracyclines [TETRACYCLINES] Allergy Unknown Verified 07/24/21 08:24 IV CONTRAST Allergy Intermediate Uncoded 07/24/21 08:24 Review of Systems Constitutional Comments: Denies fever/chills, weight loss, night sweats Eyes Comments: Denies vision changes Cardiovascular Comments: Endorses occassional palpitations. Denies orthopnea, peripheral edema Respiratory Comments: Denies SOB, cough Gastrointestinal Comments: Endorses abd pain, n/v/d Musculoskeletal Comments: Denies muscle aches Integumentary/Breasts Comments: Denies new skin lesions Exam Vital Signs (past 8 hours): - 07/25/21 08:30 07/25/21 08:41 07/25/21 09:00 Temperature Pulse Rate 79 79 80 Respiratory Rate 11 L 18 Blood Pressure 181/86 H 200/88 H Pulse Oximetry 99 97 98 07/25/21 09:04 07/25/21 09:30 07/25/21 10:00 Temperature Pulse Rate 65 71 77 Respiratory Rate 20 21 23 Blood Pressure 171/80 H 195/84 H Pulse Oximetry 96 97 97 07/25/21 10:01 07/25/21 10:30 07/25/21 10:31 Temperature Pulse Rate 73 79 Respiratory Rate 22 23 Blood Pressure 168/74 H 153/66 H Pulse Oximetry 94 94 07/25/21 11:00 07/25/21 11:30 07/25/21 11:31 Temperature Pulse Rate 71 92 H 92 H Respiratory Rate 20 24 24 Blood Pressure 161/75 H 105/54 L Pulse Oximetry 97 94 94 07/25/21 12:01 07/25/21 12:04 07/25/21 12:13 Temperature 98.6 F Pulse Rate 84 93 H 89 Respiratory Rate 24 27 H 24 Blood Pressure 96/52 L 140/60 Pulse Oximetry 93 94 07/25/21 12:15 07/25/21 12:30 07/25/21 12:34 Temperature Pulse Rate 86 88 85 Respiratory Rate 25 H 22 22 Blood Pressure 138/65 119/58 L Pulse Oximetry 92 90 L 93 07/25/21 12:45 07/25/21 13:00 07/25/21 13:15 Temperature Pulse Rate 89 96 H 96 H Respiratory Rate 22 21 21 Blood Pressure 107/56 L 112/59 L 119/58 L Pulse Oximetry 93 92 92 07/25/21 13:30 07/25/21 13:45 07/25/21 14:00 Temperature Pulse Rate 80 96 H 87 Respiratory Rate 23 22 26 H Blood Pressure 125/60 117/56 L 149/107 H Pulse Oximetry 92 97 95 07/25/21 14:15 07/25/21 14:30 07/25/21 14:45 Temperature Pulse Rate 64 73 84 Respiratory Rate 20 22 22 Blood Pressure 151/78 H 132/78 134/75 Pulse Oximetry 95 95 95 07/25/21 15:00 07/25/21 15:15 07/25/21 15:40 Temperature 98.9 F Pulse Rate 88 76 89 Respiratory Rate 23 22 18 Blood Pressure 139/79 128/84 143/86 H Pulse Oximetry 95 Oxygen Delivery Method Nasal Cannula Oxygen Flow Rate 0 Const Other: Patient laying in bed comfortably upon my entering the room, in no apparent acute distress Eyes Other: No scleral icterus appreciated Resp Other: Lungs clear to auscultation bilaterally Cardio Other: RRR, S1 and S2 heart sounds normal, with no extra heart sounds or murmurs appreciated GI Other: Soft, non-distended, non-tender, bowel sounds present Skin Other: No grossly abnormal skin lesions noted Extrem Other: No peripheral edema, palpable dorsalis pedis pulses Objective Labs Result Diagrams: 07/25/21 06:30 07/25/21 06:30 Labs: Laboratory Results - last 24 hr 07/25/21 07/25/21 07/25/21 06:30 06:30 06:30 WBC 32.5 H* D RBC 4.91 Hgb 14.5 Hct 42.7 MCV 87.1 MCH 29.6 MCHC 34.0 RDW 12.9 Plt Count 345 Neut % (Auto) Not Reportable Lymph % (Auto) Not Reportable [place] % (Auto) Not Reportable Eos % (Auto) Not Reportable Baso % (Auto) Not Reportable Lymph # (Auto) Not Reportable [place] # (Auto) Not Reportable Baso # (Auto) Not Reportable Total Counted 100 Seg Neutrophils % 85.0 H Band Neutrophils % 1.0 L Lymphocytes % (Manual) 9.0 L Atypical Lymphs % 2.0 H Monocytes % (Manual) 3.0 Neutrophils # (Manual) 80718 H RBC Morphology Normal morphology Sodium 142 Potassium 3.2 L Chloride 107 Carbon Dioxide 20 L BUN 16 Creatinine 0.81 Estimated GFR > 60 BUN/Creatinine Ratio 19.8 Glucose 154 H Lactate 5.0 H* Calcium 9.9 Total Bilirubin 0.7 AST 29 ALT 31 Alkaline Phosphatase 99 Total Creatine Kinase 176 H CK-MB (CK-2) 2.47 H CK-MB (CK-2) Rel Index 1.4 L Troponin I < 0.012 Total Protein 8.2 Albumin 5.0 Globulin 3.2 Albumin/Globulin Ratio 1.6 Lipase 141 D Procalcitonin Urine Color Urine Appearance Urine pH Ur Specific [place] Urine Protein Urine Glucose (UA) Urine Ketones Urine Occult Blood Urine Nitrate Urine Bilirubin Urine Urobilinogen Ur Leukocyte Esterase Urine RBC Urine WBC Ur Squamous Epith Cells Urine Bacteria Hyaline Casts Ur Culture Indicated? U Opiates 300ng/mL cut Ur Oxycodone Screen Urine Methadone Screen Ur Barbiturates Screen U Tricyclic Antidepress Ur Phencyclidine Scrn Ur Amphetamines Screen U Methamphetamines Scrn Ur MDMA Scrn (Ecstasy) U Benzodiazepines Scrn Urine Cocaine Screen U Marijuana (THC) Screen Ethyl Alcohol SARS-CoV-2 (PCR) 07/25/21 07/25/21 07/25/21 06:30 06:30 09:25 WBC RBC Hgb Hct MCV MCH MCHC RDW Plt Count Neut % (Auto) Lymph % (Auto) [place] % (Auto) Eos % (Auto) Baso % (Auto) Lymph # (Auto) [place] # (Auto) Baso # (Auto) Total Counted Seg Neutrophils % Band Neutrophils % Lymphocytes % (Manual) Atypical Lymphs % Monocytes % (Manual) Neutrophils # (Manual) RBC Morphology Sodium Potassium Chloride Carbon Dioxide BUN Creatinine Estimated GFR BUN/Creatinine Ratio Glucose Lactate Calcium Total Bilirubin AST ALT Alkaline Phosphatase Total Creatine Kinase CK-MB (CK-2) CK-MB (CK-2) Rel Index Troponin I Total Protein Albumin Globulin Albumin/Globulin Ratio Lipase Procalcitonin 0.06 Urine Color Urine Appearance Urine pH Ur Specific [place] Urine Protein Urine Glucose (UA) Urine Ketones Urine Occult Blood Urine Nitrate Urine Bilirubin Urine Urobilinogen Ur Leukocyte Esterase Urine RBC Urine WBC Ur Squamous Epith Cells Urine Bacteria Hyaline Casts Ur Culture Indicated? U Opiates 300ng/mL cut Ur Oxycodone Screen Urine Methadone Screen Ur Barbiturates Screen U Tricyclic Antidepress Ur Phencyclidine Scrn Ur Amphetamines Screen U Methamphetamines Scrn Ur MDMA Scrn (Ecstasy) U Benzodiazepines Scrn Urine Cocaine Screen U Marijuana (THC) Screen Ethyl Alcohol < 10 SARS-CoV-2 (PCR) Negative 07/25/21 07/25/21 07/25/21 09:52 11:10 12:31 WBC RBC Hgb Hct MCV MCH MCHC RDW Plt Count Neut % (Auto) Lymph % (Auto) [place] % (Auto) Eos % (Auto) Baso % (Auto) Lymph # (Auto) [place] # (Auto) Baso # (Auto) Total Counted Seg Neutrophils % Band Neutrophils % Lymphocytes % (Manual) Atypical Lymphs % Monocytes % (Manual) Neutrophils # (Manual) RBC Morphology Sodium Potassium Chloride Carbon Dioxide BUN Creatinine Estimated GFR BUN/Creatinine Ratio Glucose Lactate 1.6 Calcium Total Bilirubin AST ALT Alkaline Phosphatase Total Creatine Kinase CK-MB (CK-2) CK-MB (CK-2) Rel Index Troponin I < 0.012 Total Protein Albumin Globulin Albumin/Globulin Ratio Lipase Procalcitonin Urine Color Urine Appearance Urine pH Ur Specific [place] Urine Protein Urine Glucose (UA) Urine Ketones Urine Occult Blood Urine Nitrate Urine Bilirubin Urine Urobilinogen Ur Leukocyte Esterase Urine RBC Urine WBC Ur Squamous Epith Cells Urine Bacteria Hyaline Casts Ur Culture Indicated? U Opiates 300ng/mL cut Positive H Ur Oxycodone Screen Negative Urine Methadone Screen Negative Ur Barbiturates Screen Negative U Tricyclic Antidepress Negative Ur Phencyclidine Scrn Negative Ur Amphetamines Screen Negative U Methamphetamines Scrn Negative Ur MDMA Scrn (Ecstasy) Negative U Benzodiazepines Scrn Positive H Urine Cocaine Screen Negative U Marijuana (THC) Screen Positive H Ethyl Alcohol SARS-CoV-2 (PCR) 07/25/21 12:31 WBC RBC Hgb Hct MCV MCH MCHC RDW Plt Count Neut % (Auto) Lymph % (Auto) [place] % (Auto) Eos % (Auto) Baso % (Auto) Lymph # (Auto) [place] # (Auto) Baso # (Auto) Total Counted Seg Neutrophils % Band Neutrophils % Lymphocytes % (Manual) Atypical Lymphs % Monocytes % (Manual) Neutrophils # (Manual) RBC Morphology Sodium Potassium Chloride Carbon Dioxide BUN Creatinine Estimated GFR BUN/Creatinine Ratio Glucose Lactate Calcium Total Bilirubin AST ALT Alkaline Phosphatase Total Creatine Kinase CK-MB (CK-2) CK-MB (CK-2) Rel Index Troponin I Total Protein Albumin Globulin Albumin/Globulin Ratio Lipase Procalcitonin Urine Color Yellow Urine Appearance Clear Urine pH 5.0 Ur Specific [place] 1.020 Urine Protein 2+ H Urine Glucose (UA) Negative Urine Ketones Trace H Urine Occult Blood 1+ H Urine Nitrate Negative Urine Bilirubin Negative Urine Urobilinogen 0.2 Ur Leukocyte Esterase Negative Urine RBC 0-1/hpf Urine WBC 1-5/hpf Ur Squamous Epith Cells 0-1 /hpf Urine Bacteria Occasional (0-1) Hyaline Casts 1-5/lpf Ur Culture Indicated? Cult not indicated U Opiates 300ng/mL cut Ur Oxycodone Screen Urine Methadone Screen Ur Barbiturates Screen U Tricyclic Antidepress Ur Phencyclidine Scrn Ur Amphetamines Screen U Methamphetamines Scrn Ur MDMA Scrn (Ecstasy) U Benzodiazepines Scrn Urine Cocaine Screen U Marijuana (THC) Screen Ethyl Alcohol SARS-CoV-2 (PCR) Assessment & Plan Assessment & Plan narrative: Assessment: 1. Intractable n/v, unclear etiology 2. Leukocytosis, without clear source of infection, likely reactive 3. Pericardial cyst, stable 4. Non-insulin dependent pre-DM II 5. Hypertension Plan: 1. Phenergan on-board, as patient reports this works best for her. IV Reglan on- board, too, both at low doses. IV Protonix 40 mg bid to help with acid reduction. Will check TSH. 2. No clear-cut source of infection based on HPI/exam/lab/imaging studies. As such, will not start IV antibiotics. If patient develops a fever, then will need blood cultures, repeat infectious workup, and likely empiric coverage. She's also received IV Solumedrol 125 mg on July 24 and , and that might be contributing, too. 3. Has been stable since imaging records in our system from 2019. ER physician spoke with on-call drum handler who reported stat echocardiogram looked OK, with stable cyst. 4. Recently prescribed metformin 500 mg daily, although there was not a temporal association with her presenting symptoms. Will hold for now. 5. Will hold home Lopressor for now, as it will not likely improve her BP. If BP continues to be high, will likely start lisinopril. VTE prophylaxis: Holding for now, as anticipate a short observation stay Code: Full Code Proxy: I have utilized all available immediate resources to obtain, review, or confirm that patient's medications. Time Spent With Patient Critical Care time: I spent a total of [] minutes of critical care time on this patient's care today; this time is exclusive of procedural time. Quality MIPS - Admit I confirm the patient?s Advance Care Plan is present, Code status is documented, Surrogate decision maker is in patient?s record [If Yes, STOP here]: Yes
[2021-07-26 01:35] VITALS: BP 145/84; PULSE 68; RESP 18; TEMP 36.4; O2SAT 96
[2021-07-26 05:25] LABS: Add Manual Diff / Slide Review NO; Basophils Absolute Auto 0 /uL (0-100); Basophils Percent Auto 0.2 % (0-2); Eosinophils Absolute Auto 0 /uL (0-450); Hematocrit 36.2 % (36-46); Hemoglobin 12.2 g/dL (12.0-16.0); Lymphocytes Absolute Auto 2000 /uL (1100-4500); Lymphocytes Percent Auto 12.1 % (25-40); Mean Corpuscular HGB Conc 33.8 % (30-36); Mean Corpuscular Hemoglobin 29.7 PG (26-34); Mean Corpuscular Volume 87.9 fL (80-100); Monocytes Absolute Auto 1000 /uL (0-900); Monocytes Percent Auto 6.2 % (3-14); Neutrophils Absolute Auto 13600 /uL (1500-7000); Neutrophils Percent Auto 81.5 % (50-75); Platelet Count 213 X10^3/uL (150-400); Red Blood Cell Count 4.12 X10^6/uL (4.0-5.2); White Blood Cell Count 16.7 X10^3/uL (4.5-11.0)
[2021-07-26 06:10] LABS: TSH w/ Reflex to FT4 0.59 uIU/mL (0.47-4.68)
[2021-07-26 06:40] VITALS: BP 136/79; PULSE 85; RESP 18; TEMP 37.1; O2SAT 95
[2021-07-26 07:00] VITALS: BP 146/86; PULSE 65; RESP 20; TEMP 36.8; O2SAT 92
[2021-07-26] MEDS: ENOXAPARIN 40 MG/0.4 ML SYRINGE SUBCUT (08:30)
[2021-07-26] MEDS: PANTOPRAZOLE 40 MG VIAL IV ×2 (08:30→21:09)
--- NOTE | 2021-07-26 08:51 | CM.DANOTE ---
DCP: Case received, EMR reviewed and met with patient. Introduced self and role. Was able to obtain information regarding patient's baseline activity status prior to hospitalization. DCP assessment completed with information currently available. Patient is a 55 year old female who admitted yesterday afternoon to the care of the hospitalist team. PCP: Dr. Sawant. Payer: confirmed: [facility]. Patient came to the hospital via private vehicle secondary to having dry heaving at work, and nausea and vomiting later that night. Patient had noted some coffee ground emesis, and copious watery stools. Patient was diagnosed with intractable nausea and vomiting, unclear etiology, and leukocytosis without source of infection. According to notes, patient is newly diagnosed diabetic. Met with patient in her room. She is alert and oriented, pleasant. She was up sitting on the edge of the bed having some breakfast. She stated, she was feeling better. Patient resides here in [place] with her spouse, John. Patient is independent, and she is a nurse at [employer]. Confirmed with her that she sees Dr. Sawant as her primary care provider. P: DCP to continue to follow for any needs. Patient indicated, she should be going home this afternoon as long as she continues to feel better. Britni Hernandez RN/Farm Equipment Engineer Discharge Planning/Care Management CM Discharge Assessment Start: 07/26/21 08:50 Freq: Status: Active Protocol: Document 07/26/21 08:50 (Rec: 07/26/21 08:51 [id number]) Discharge Planning Assessment Assigned Business Specialist Britni Hernandez RN/Farm Equipment Engineer Advance Directives? No Advance Directives on File No History Provided By Patient,Medical Record Household Members spouse Type of transporation used prior to Drives own vehicle admit Independent with ADL's Yes Is patient alert and oriented? Yes Caregiver for Another No Discharge Plan Home Transportation Arrangement Spouse Referrals Initiated None needed Whiteboard Updated in Patient Room with Yes name and ext. # of Business Specialist Review Status In Process Next Review Type Continued Stay Review
--- NOTE | 2021-07-26 09:23 | PC.NURSE ---
Addendum entered by Noemy Blackmon R.N. 07/26/21 18:08: Patients fourth potassium rider is up and hanging. She is tolerating them well, they are being infused at 75cc/hr as running them any higher is bothering patients iv. Just given some reglan and helpful to patient. She is npo at this time, but we have not put an order in for this. Will trial her on some clear liquids when she is feeling better. Patients oral potassium was d/cd as she was not able to keep anything down. Addendum entered by Noemy Blackmon R.N. 07/26/21 14:00: Patient given dilaudid 1mg iv and helpful to patient. She is not moaning and is actually able to sleep. Resting well now. Addendum entered by Noemy Blackmon R.N. 07/26/21 11:37: Patient is alseep now and denies pain. K+ low at 2.9, to order some oral potassium. Addendum entered by Noemy Blackmon R.N. 07/26/21 10:07: Patient anxious and complaining of feeling indigestion mid sternal area, and pain to her mid back. Blood pressure is high at 189/96 and temp 100.2. is aware and is going to come down and see patient soon. Given Reglan for nausea. Original Note: Assess- Patient is not having any nausea or vomiting this am. She feels well and is tolerating her full liquid diet. States that told her that she can leave around 1300. Resting in bed comfortably.
--- NOTE | 2021-07-26 09:41 | PM.PN.1 ---
Subjective Subjective Interval history: The patient reports feeling completely back to her baseline health today. She denies any active issues. She is requesting to be discharged home. Exam Vital Signs (past 8 hours): - 07/26/21 06:40 07/26/21 07:00 Temperature 98.8 F 98.2 F Pulse Rate 85 65 Respiratory Rate 18 20 Blood Pressure 136/79 146/86 H Pulse Oximetry 95 92 Oxygen Delivery Method Room Air Oxygen Flow Rate 0 Narrative Exam Narrative: Const Other: Patient sitting up at edge of bed comfortably upon my entering the room, eating breakfast, in no apparent acute distress Eyes Other: No scleral icterus appreciated Resp Other: Lungs clear to auscultation bilaterally Cardio Other: RRR, S1 and S2 heart sounds normal, with no extra heart sounds or murmurs appreciated GI Other: Soft, non-distended, non-tender, bowel sounds present Skin Other: No grossly abnormal skin lesions noted Extrem Other: No peripheral edema, palpable dorsalis pedis pulses Objective Labs Result Diagrams: 07/26/21 05:15 07/25/21 06:30 Labs: Laboratory Results - last 24 hr 07/25/21 07/25/21 07/25/21 09:25 09:52 11:10 WBC RBC Hgb Hct MCV MCH MCHC RDW Plt Count Neut % (Auto) Lymph % (Auto) [place] % (Auto) Eos % (Auto) Baso % (Auto) Neut # (Auto) Lymph # (Auto) [place] # (Auto) Eos # (Auto) Baso # (Auto) Lactate 1.6 Troponin I < 0.012 TSH Urine Color Urine Appearance Urine pH Ur Specific [place] Urine Protein Urine Glucose (UA) Urine Ketones Urine Occult Blood Urine Nitrate Urine Bilirubin Urine Urobilinogen Ur Leukocyte Esterase Urine RBC Urine WBC Ur Squamous Epith Cells Urine Bacteria Hyaline Casts Ur Culture Indicated? U Opiates 300ng/mL cut Ur Oxycodone Screen Urine Methadone Screen Ur Barbiturates Screen U Tricyclic Antidepress Ur Phencyclidine Scrn Ur Amphetamines Screen U Methamphetamines Scrn Ur MDMA Scrn (Ecstasy) U Benzodiazepines Scrn Urine Cocaine Screen U Marijuana (THC) Screen SARS-CoV-2 (PCR) Negative 07/25/21 07/25/21 07/26/21 12:31 12:31 05:15 WBC 16.7 H RBC 4.12 Hgb 12.2 Hct 36.2 MCV 87.9 MCH 29.7 MCHC 33.8 RDW 13.0 Plt Count 213 Neut % (Auto) 81.5 H Lymph % (Auto) 12.1 L [place] % (Auto) 6.2 Eos % (Auto) 0.0 L Baso % (Auto) 0.2 Neut # (Auto) 96064 H Lymph # (Auto) 2000 [place] # (Auto) 1000 H Eos # (Auto) 0 Baso # (Auto) 0 Lactate Troponin I TSH Urine Color Yellow Urine Appearance Clear Urine pH 5.0 Ur Specific [place] 1.020 Urine Protein 2+ H Urine Glucose (UA) Negative Urine Ketones Trace H Urine Occult Blood 1+ H Urine Nitrate Negative Urine Bilirubin Negative Urine Urobilinogen 0.2 Ur Leukocyte Esterase Negative Urine RBC 0-1/hpf Urine WBC 1-5/hpf Ur Squamous Epith Cells 0-1 /hpf Urine Bacteria Occasional (0-1) Hyaline Casts 1-5/lpf Ur Culture Indicated? Cult not indicated U Opiates 300ng/mL cut Positive H Ur Oxycodone Screen Negative Urine Methadone Screen Negative Ur Barbiturates Screen Negative U Tricyclic Antidepress Negative Ur Phencyclidine Scrn Negative Ur Amphetamines Screen Negative U Methamphetamines Scrn Negative Ur MDMA Scrn (Ecstasy) Negative U Benzodiazepines Scrn Positive H Urine Cocaine Screen Negative U Marijuana (THC) Screen Positive H SARS-CoV-2 (PCR) 07/26/21 05:15 WBC RBC Hgb Hct MCV MCH MCHC RDW Plt Count Neut % (Auto) Lymph % (Auto) [place] % (Auto) Eos % (Auto) Baso % (Auto) Neut # (Auto) Lymph # (Auto) [place] # (Auto) Eos # (Auto) Baso # (Auto) Lactate Troponin I TSH 0.59 Urine Color Urine Appearance Urine pH Ur Specific [place] Urine Protein Urine Glucose (UA) Urine Ketones Urine Occult Blood Urine Nitrate Urine Bilirubin Urine Urobilinogen Ur Leukocyte Esterase Urine RBC Urine WBC Ur Squamous Epith Cells Urine Bacteria Hyaline Casts Ur Culture Indicated? U Opiates 300ng/mL cut Ur Oxycodone Screen Urine Methadone Screen Ur Barbiturates Screen U Tricyclic Antidepress Ur Phencyclidine Scrn Ur Amphetamines Screen U Methamphetamines Scrn Ur MDMA Scrn (Ecstasy) U Benzodiazepines Scrn Urine Cocaine Screen U Marijuana (THC) Screen SARS-CoV-2 (PCR) REPLACED BY [facility] Medical History (Updated 07/25/21 @ 13:59 by Shannan Lira DO) Cyclic vomiting syndrome Migraine UTI (urinary tract infection) Surgical History (System 07/24/21 @ 08:24 by Ofe Tracy) Status post cholecystectomy Status post tubal ligation Social History (System 07/24/21 @ 08:24 by Ofe Tracy) household members: spouse Smoking Status: Never smoker Assessment & Plan Assessment & Plan narrative: Assessment: 1. Intractable n/v, unclear etiology 2. Leukocytosis, without clear source of infection, likely reactive 3. Pericardial cyst, stable 4. Pre-DM II 5. Hypertension Plan: 1. Phenergan on-board, as patient reports this works best for her. IV Reglan on-board, too, both at low doses. IV Protonix 40 mg bid to help with acid reduction. Will check TSH. 2. No clear-cut source of infection based on HPI/exam/lab/imaging studies. As such, will not start IV antibiotics. If patient develops a fever, then will need blood cultures, repeat infectious workup, and likely empiric coverage. She's also received IV Solumedrol 125 mg on July 24 and , and that might be contributing, too. 3. Has been stable since imaging records in our system from 2019. ER physician spoke with on-call certified fraud examiner who reported stat echocardiogram looked OK, with stable cyst. 4. Recently prescribed metformin 500 mg daily, although there was not a temporal association with her presenting symptoms. Will hold for now. 5. Will hold home Lopressor for now, as it will not likely improve her BP. If BP continues to be high, will likely start lisinopril. VTE prophylaxis: Holding for now, as anticipate a short observation stay Time Spent With Patient Critical Care time: I spent a total of [] minutes of critical care time on this patient's care today; this time is exclusive of procedural time. Quality VTE Deep Vein Thrombosis/Pulmonary Embolism Present on Admission: No
[2021-07-26] MEDS: METOCLOPRAMIDE 10 MG/2 ML INJ 5 MG IV ×2 (09:47→17:06)
--- NOTE | 2021-07-26 10:17 | DI.RAD.S_ITS ---
PROCEDURE: XR CHEST 1V INDICATIONS: Fever, SOB, chest pain TECHNIQUE: One view of the chest was acquired. COMPARISON: [facility], CR, CHEST 2VW, 09/03/2011, 15:50. [facility], CT, CT CHEST ABD PEL W CON, 07/25/2021, 8:21. FINDINGS: Surgical changes and devices: None. Lungs and pleura: Bibasilar scars and atelectasis. No focal consolidation. No pleural effusions or pneumothorax. Mediastinum: Mediastinal contours appear normal. Heart size is normal. Bones and chest wall: No suspicious bony lesions. Overlying soft tissues appear unremarkable. IMPRESSION: Bibasilar scars and atelectasis. Dictated by: Teodoro Ingram M.D. on 07/26/2021 at 10:55 Approved by: Teodoro Ingram M.D. on 07/26/2021 at 10:57
[2021-07-26] MEDS: LORazepam 2 MG/ML INJ 1 MG IV (10:33)
[2021-07-26 10:48] VITALS: BP 188/93; PULSE 73; RESP 23; TEMP 37.9; O2SAT 95
[2021-07-26 10:49] LABS: Add Manual Diff / Slide Review NO; Basophils Absolute Auto 100 /uL (0-100); Basophils Percent Auto 0.5 % (0-2); Eosinophils Absolute Auto 0 /uL (0-450); Eosinophils Percent Auto 0.1 % (2-4); Hematocrit 39.4 % (36-46); Hemoglobin 13.3 g/dL (12.0-16.0); Lymphocytes Absolute Auto 3300 /uL (1100-4500); Lymphocytes Percent Auto 15.6 % (25-40); Mean Corpuscular HGB Conc 33.7 % (30-36); Mean Corpuscular Hemoglobin 29.4 PG (26-34); Mean Corpuscular Volume 87.1 fL (80-100); Monocytes Absolute Auto 1300 /uL (0-900); Neutrophils Absolute Auto 16200 /uL (1500-7000); Neutrophils Percent Auto 77.8 % (50-75); Platelet Count 248 X10^3/uL (150-400); Red Blood Cell Count 4.52 X10^6/uL (4.0-5.2); Red Cell Distribution Width 12.9 % (11.6-14.8); White Blood Cell Count 20.9 X10^3/uL (4.5-11.0)
[2021-07-26 11:05] LABS: BUN Creatinine Ratio 19.6 (6-22); Blood Urea Nitrogen 18 mg/dL (7-17); Calcium 8.9 mg/dL (8.4-10.2); Carbon Dioxide 23 mmol/L (22-32); Chloride 108 mmol/L (98-107); Estimated Glomerular Filt Rate > 60 mL/min (>60); Glucose 119 mg/dL (70-100); HEMOLYSIS < 15 (0-50); Potassium 2.9 mmol/L (3.4-5.1); Sodium 140 mmol/L (137-145)
[2021-07-26 11:17] LABS: NT-proBNP (BNP-Adult 18+) 619 pg/mL (<125); Troponin I < 0.012 ng/mL (0.01-0.034)
[2021-07-26] MEDS: POTASSIUM CHLORIDE IN WATER 10 MEQ/100 ML PIGGYBACK 100 MEQ IV ×5 (12:26→21:15)
--- NOTE | 2021-07-26 12:58 | DI.RAD.S_ITS ---
PROCEDURE: XR ABDOMEN 1V INDICATIONS: Abdominal pain TECHNIQUE: One view of the abdomen acquired. COMPARISON: [facility], CT, CT CHEST ABD PEL W CON, 07/25/2021, 8:21. [facility], CT, CT ABDOMEN PELVIS W CON, 07/24/2021, 9:46. FINDINGS: Surgical changes and devices: Right upper quadrant cholecystectomy clips are present. Bowel: Bowel gas pattern is normal. Soft tissues: No suspicious abdominal calcifications. Visualized solid organ contours appear normal in size. Bones: No suspicious bony lesions. IMPRESSION: Nonobstructive bowel gas pattern. No acute abnormality is seen radiographically. Dictated by: Mark Nielson M.D. on 07/26/2021 at 13:43 Approved by: Mark Nielson M.D. on 07/26/2021 at 13:45
[2021-07-26] MEDS: HYDROMORPHONE 1 MG INJ IV ×2 (13:05→18:19)
[2021-07-26 16:12] VITALS: BP 166/87; PULSE 58; RESP 16; TEMP 37.3; O2SAT 91
[2021-07-26] MEDS: POTASSIUM CHLORIDE IN WATER 10 MEQ/100 ML PIGGYBACK 50 MEQ IV ×2 (16:45→18:28)
[2021-07-26 20:33] VITALS: BP 117/75; PULSE 68; RESP 17; TEMP 37.1; O2SAT 96
[2021-07-26] MEDS: SODIUM CHLORIDE 0.9% FLUSH 10 ML IV (21:09)
[2021-07-26] MEDS: PROMETHAZINE 25 MG TABLET 12.5 MG PO (21:13)
--- NOTE | 2021-07-26 21:22 | PC.NURSE ---
Patient is alert and oriented. Breath sounds CTA with RA sat of 96%. HRR. Denied nausea at time of assessment but at this time is complaining of slight nausea so medicated with Phenergan as too early to repeat Reglan. BT present and abdomen is soft; denies tenderness. Denied dysuria, frequency or urgency. Is independent with bed mobility and reports she is up out of bed with SBA. Denied pain. Fall risk score is low and patient calls for assistance appropriately.
[2021-07-26] MEDS: POTASSIUM CHLORIDE IN WATER 10 MEQ/100 ML PIGGYBACK 75 MEQ IV (22:20)
[2021-07-27 03:06] VITALS: BP 142/80; PULSE 62; RESP 17; TEMP 37; O2SAT 93
[2021-07-27 05:42] LABS: Add Manual Diff / Slide Review NO; Basophils Absolute Auto 0 /uL (0-100); Basophils Percent Auto 0.1 % (0-2); Eosinophils Absolute Auto 0 /uL (0-450); Eosinophils Percent Auto 0.4 % (2-4); Hemoglobin 13.3 g/dL (12.0-16.0); Lymphocytes Absolute Auto 2000 /uL (1100-4500); Lymphocytes Percent Auto 16.9 % (25-40); Mean Corpuscular HGB Conc 33.3 % (30-36); Mean Corpuscular Hemoglobin 29.5 PG (26-34); Mean Corpuscular Volume 88.5 fL (80-100); Monocytes Absolute Auto 700 /uL (0-900); Neutrophils Absolute Auto 9200 /uL (1500-7000); Neutrophils Percent Auto 76.6 % (50-75); Platelet Count 218 X10^3/uL (150-400); Red Blood Cell Count 4.52 X10^6/uL (4.0-5.2); Red Cell Distribution Width 12.7 % (11.6-14.8)
[2021-07-27 05:48] LABS: BUN Creatinine Ratio 15.9 (6-22); Blood Urea Nitrogen 14 mg/dL (7-17); Calcium 8.3 mg/dL (8.4-10.2); Carbon Dioxide 30 mmol/L (22-32); Chloride 104 mmol/L (98-107); Estimated Glomerular Filt Rate > 60 mL/min (>60); Glucose 99 mg/dL (70-100); HEMOLYSIS < 15 (0-50); Magnesium 2.2 mg/dL (1.6-2.3); Phosphorous 2.1 mg/dL (2.5-4.5); Potassium 3.6 mmol/L (3.4-5.1); Sodium 140 mmol/L (137-145)
[2021-07-27] MEDS: PROMETHAZINE 25 MG TABLET 12.5 MG PO (07:44)
[2021-07-27] MEDS: PANTOPRAZOLE 40 MG VIAL IV (08:05)
[2021-07-27] MEDS: SODIUM CHLORIDE 0.9% FLUSH 10 ML IV (08:06)
[2021-07-27 08:15] VITALS: BP 161/89; PULSE 62; RESP 19; TEMP 37.1; O2SAT 100
--- NOTE | 2021-07-27 09:14 | P.DS_ITS ---
History of Present Illness History of Present Illness Date Patient Seen: 07/27/21 Chief complaint: vomiting, minor stomach pains, Narrative: 55yo female with a hx of recently diagnosed pre-diabetes mellitus II and hypertension that presents with n/v/d. The patient states this all started 4 days ago. She remembers dry heaving at work (she works as an RN at a nearby hospital) and then developed n/v later that night at home. She describes intermittent instances of bright red blood and c offee ground emesis. She denies bright red blood in her stool or melanotic stools. She describes her stools as yellow. She denies copious, watery stools. She reports having 3-5 episodes of vomiting and diarrhea in a day. At the moment, she denies n/v. She denies any respiratory complaints. She reports being vaccinated against COVID, with her second booster given on July 19. She also endorses abd pain after the n/v episodes. She denies any recent sick contacts, or recent travel, or eating of food that might have been spoiled. 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 She also endorses colonoscopy 3 years ago that she says was normal, save for excision of some polys. She denies any personal hx of cancer. Denies smoking tobacco or using EtOH. The patient does admit to smoking 1 joint of marijuana per week. She reports she's been doing this for years without problems. She denies that her n/v improves with hot showers. PSH is remarkable for total hysterectomy and bilateral salpingo-oopherectomy due to concern for ovarian torsion at that time, along with cholecystectomy. Family hx is positive for mother and maternal grandmother with DM II. She lives with her and their dog. Of note, patient had a very similar presentation to this one almost 1 year ago in June 2020. Discharge Providers Provider Date of admission: 07/25/21 15:34 Discharge Date: 07/27/21 Primary care physician: Lynda Sawant MD Discharge provider: Rosa Ramos MD Summary Hospital Course Discharge Diagnosis: 1. Nausea and vomiting now resolved 2. Probable panic attack 3. Type 2 diabetes 4. Hypertension Hospital Course: Patient was admitted to the hospital for intractable nausea and vomiting. Phenergan IV fluids with improvement. Id patient was planning for discharge yesterday when she developed abrupt onset of chest tightness back pain, which quickly resolved. She has had no further symptoms. Her diet has been advanced and she has tolerated without difficulty. She did take Phenergan today but has had no further nausea or vomiting. Patient has improved significantly is deemed to be back to her baseline. She will be discharged home with plans to follow-up with her PCP, Dr. Sawant next week. Status at Discharge Cognitive/behavioral status at discharge: oriented Functional status at discharge: independent ambulation Overall status at discharge: patient is progressing back to baseline Exam Vital Signs (past 8 hours): - 07/27/21 03:06 07/27/21 08:15 Temperature 98.6 F 98.7 F Pulse Rate 62 62 Respiratory Rate 17 19 Blood Pressure 142/80 H 161/89 H Pulse Oximetry 93 100 Oxygen Delivery Method Room Air Oxygen Flow Rate 0 Narrative Exam Narrative: Pleasant female resting comfortably in no acute distress Resp Other: Lungs: Clear to auscultation Cardio Other: Cardiac exam: Regular rate rhythm normal S1-S2 GI Other: Abdomen: Soft and nontender Extrem Other: Extremities: No edema Objective Labs Result Diagrams: 07/27/21 05:08 07/27/21 05:08 Labs: Laboratory Results - last 24 hr 07/26/21 07/26/21 07/27/21 10:42 10:42 05:08 WBC 20.9 H 12.0 H RBC 4.52 4.52 Hgb 13.3 13.3 Hct 39.4 40.0 MCV 87.1 88.5 MCH 29.4 29.5 MCHC 33.7 33.3 RDW 12.9 12.7 Plt Count 248 218 Neut % (Auto) 77.8 H 76.6 H Lymph % (Auto) 15.6 L 16.9 L [place] % (Auto) 6.0 6.0 Eos % (Auto) 0.1 L 0.4 L Baso % (Auto) 0.5 0.1 Neut # (Auto) 25598 H 9200 H Lymph # (Auto) 3300 2000 [place] # (Auto) 1300 H 700 Eos # (Auto) 0 0 Baso # (Auto) 100 0 Sodium 140 Potassium 2.9 L Chloride 108 H Carbon Dioxide 23 BUN 18 H Creatinine 0.92 Estimated GFR > 60 BUN/Creatinine Ratio 19.6 Glucose 119 H Calcium 8.9 Phosphorus Magnesium 2.0 Troponin I < 0.012 NT-Pro-B Natriuret Pep 619 H 07/27/21 05:08 WBC RBC Hgb Hct MCV MCH MCHC RDW Plt Count Neut % (Auto) Lymph % (Auto) [place] % (Auto) Eos % (Auto) Baso % (Auto) Neut # (Auto) Lymph # (Auto) [place] # (Auto) Eos # (Auto) Baso # (Auto) Sodium 140 Potassium 3.6 Chloride 104 Carbon Dioxide 30 BUN 14 Creatinine 0.88 Estimated GFR > 60 BUN/Creatinine Ratio 15.9 Glucose 99 Calcium 8.3 L Phosphorus 2.1 L Magnesium 2.2 Troponin I NT-Pro-B Natriuret Pep PFSH Medical History (Updated 07/25/21 @ 13:59 by Shannan Lira DO) Cyclic vomiting syndrome Migraine UTI (urinary tract infection) Surgical History (System 07/24/21 @ 08:24 by Ofe Tracy) Status post cholecystectomy Status post tubal ligation Social History (System 07/24/21 @ 08:24 by Ofe Tracy) household members: spouse Smoking Status: Never smoker Discharge Assessment & Plan Assessment and Plan Assessment: 1. Nausea and vomiting now resolved 2. Probable panic attack 3. Type 2 diabetes 4. Hypertension Plan of Treatment: Discharge home Will add Phenergan to discharge medication Discharge Plan Discharge Plan Patient Disposition: Home Discharge orders & Medications Prescriptions: New promethazine 25 mg Tablet 12.5 mg PO Q6HR PRN (Reason: Nausea) Qty: 20 0RF Continued ondansetron 4 mg tablet,disintegrating 4 mg PO Q6-8H PRN (Reason: nausea and vomiting) Qty: 10 0RF hydrocodone-acetaminophen 5-325 mg tablet 1 tab PO Q6H PRN (Reason: pain) Qty: 10 0RF ondansetron 4 mg tablet,disintegrating 4 mg PO Q8H PRN (Reason: nausea and vomiting) Qty: 10 0RF metformin 500 mg tablet 500 mg PO DAILY 0RF Label Comments: take 1 tablet by mouth EVERY EVENING WITH DINNER metoprolol succinate 50 mg PO DAILY 0RF Follow up/Referrals: Lynda Sawant MD [Primary Care Provider] - Discharge Health Status Multidrug resistant organism: No MDRO Diet/Activity/Treatments Diet: Diet as Tolerated and Carb-consistent/Diabetic Discharge Data Primary Care Provider: Lynda Sawant VTE Deep Vein Thrombosis/Pulmonary Embolism Present on Admission: No
== END 2021-07-27 10:03 | disposition home or self-care (01) ==
LOC: ED 13:59 → AC 07-26 07:25
PROVIDERS: Emergency Medicine; Admitting Provider Student in an Organized Health Care Education/Training Program; Emergency Provider Emergency Medicine; PCP Internal Medicine Geriatric Medicine; Referring Provider Emergency Medicine; Visit Provider Student in an Organized Health Care Education/Training Program
DX: R11.2 Nausea with vomiting, unspecified (principal); E11.9 Type 2 diabetes mellitus without complications; I10 Essential (primary) hypertension; R07.9 Chest pain, unspecified; Q24.8 Other specified congenital malformations of heart; Z20.822 Contact with and (suspected) exposure to COVID-19; Z79.84 Long term (current) use of oral hypoglycemic drugs
CPT/HCPCS: 36415; 71045; 71260; 74018; 74177; 80048; 80053; 80305; 80320; 81001; 82550; 82553; 83605; 83690; 83735; 83880; 84100; 84145; 84443; 84484; 85007; 85025; 87040; 87635; 93005; 93010; 93306; 96361; 96365; 96366; 96367; 96375; 96376; 99284; 99285; C9803; G0378; C9113; J0692; J1170; J1200; J1650; J2060; J2405; J2765; J2930; Q9967

== ENCOUNTER → 2022-01-21 10:51 | Outpatient (CLI) | payer OTHER, SELFPAY ==
[2021-07-25 16:07] VITALS: BMI 34.2
[2022-01-21 11:46] LABS: Hemoglobin A1C% w Est Avg Glu 5.9 % (4.0-6.0)
[2022-01-21 12:01] LABS: Alanine Aminotransferase 23 IU/L (<35); Albumin 4.4 g/dL (3.5-5.0); Albumin Globulin Ratio 1.3 (1.0-2.8); Alkaline Phosphatase 114 U/L (38-126); Aspartate Aminotransferase 23 IU/L (14-36); BUN Creatinine Ratio 14.2 (6-22); Bilirubin Total 0.4 mg/dL (0.2-1.3); Blood Urea Nitrogen 15 mg/dL (7-17); Calcium 9.1 mg/dL (8.4-10.2); Carbon Dioxide 26 mmol/L (22-32); Chloride 107 mmol/L (98-107); Cholesterol 213 mg/dL (140-199); Estimated Glomerular Filt Rate > 60 mL/min (>60); Globulin 3.4 g/dL (1.7-4.1); Glucose 94 mg/dL (70-100); HDL Cholesterol 33 mg/dL (40-60); HEMOLYSIS 20 (0-50); Sodium 143 mmol/L (137-145); Total Protein 7.8 g/dL (6.3-8.2); Triglycerides 457 mg/dL (35-150)
== END ==
PROVIDERS: PCP Internal Medicine Geriatric Medicine; Referring Provider Internal Medicine Geriatric Medicine; Visit Provider Internal Medicine Geriatric Medicine
DX: R73.03 Prediabetes (principal); E78.2 Mixed hyperlipidemia
CPT/HCPCS: 36415; 80053; 80061; 83036

== ENCOUNTER 2022-03-02 21:30 | Emergency (ER) | payer OTHER, SELFPAY ==
[2021-07-25 16:07] VITALS: BMI 34.2
[2022-03-02 21:44] VITALS: BP 176/84; PULSE 75; RESP 18; TEMP 36.5; O2SAT 100; BMI 31.3
[2022-03-02] MEDS: ONDANSETRON 4 MG/2 ML INJ IV (22:01)
[2022-03-02 22:04] LABS: Add Manual Diff / Slide Review NO; Basophils Absolute Auto 100 /uL (0-100); Basophils Percent Auto 0.8 % (0-2); Eosinophils Absolute Auto 100 /uL (0-450); Eosinophils Percent Auto 0.5 % (2-4); Hematocrit 44.8 % (36-46); Hemoglobin 15.3 g/dL (12.0-16.0); Lymphocytes Absolute Auto 2300 /uL (1100-4500); Lymphocytes Percent Auto 16.7 % (25-40); Mean Corpuscular HGB Conc 34.2 % (30-36); Mean Corpuscular Hemoglobin 29.9 PG (26-34); Mean Corpuscular Volume 87.5 fL (80-100); Monocytes Absolute Auto 400 /uL (0-900); Monocytes Percent Auto 3.2 % (3-14); Neutrophils Absolute Auto 10600 /uL (1500-7000); Neutrophils Percent Auto 78.8 % (50-75); Platelet Count 280 X10^3/uL (150-400); Red Blood Cell Count 5.12 X10^6/uL (4.0-5.2); Red Cell Distribution Width 13.1 % (11.6-14.8); White Blood Cell Count 13.5 X10^3/uL (4.5-11.0)
[2022-03-02] MEDS: PANTOPRAZOLE 40 MG VIAL IV (22:04)
[2022-03-02 22:12] LABS: Lactate (Lactic Acid) 2.2 mmol/L (0.7-2.1)
[2022-03-02 22:13] LABS: Alanine Aminotransferase 24 IU/L (<35); Albumin 4.6 g/dL (3.5-5.0); Albumin Globulin Ratio 1.4 (1.0-2.8); Alkaline Phosphatase 151 U/L (38-126); Aspartate Aminotransferase 20 IU/L (14-36); BUN Creatinine Ratio 18.6 (6-22); Bilirubin Total 0.4 mg/dL (0.2-1.3); Blood Urea Nitrogen 16 mg/dL (7-17); Calcium 9.7 mg/dL (8.4-10.2); Carbon Dioxide 21 mmol/L (22-32); Chloride 109 mmol/L (98-107); Estimated Glomerular Filt Rate > 60 mL/min (>60); Globulin 3.3 g/dL (1.7-4.1); Glucose 197 mg/dL (70-100); HEMOLYSIS 16 (0-50); Lipase 139 U/L (23-300); Potassium 3.5 mmol/L (3.4-5.1); Sodium 143 mmol/L (137-145); Total Protein 7.9 g/dL (6.3-8.2)
--- NOTE | 2022-03-02 22:39 | ED_ITS ---
HPI - Nausea/Vomiting/Diarrhea General Chief complaint: Nausea/Vomiting/Diarrhea Stated complaint: Vomiting, Fever Time Seen by Provider: 03/02/22 21:57 Source: patient Mode of arrival: Ambulatory History of Present Illness HPI Narrative: Patient is a 56-year-old female history of diabetes, hypertension, presents today with sudden onset of nausea vomiting. Says she started feeling nauseous and vomiting. Now a shivering cold and cannot get warm. She really is having some abdominal pain as well. No chest pain or palpitations. This is similar to her presentation previously back in July. At that time she had intractable nausea vomiting and was admitted to the hospital for couple of days. She endorses smoking marijuana regularly. She denies any his fever chills or headache. Related Data Home Medications Medication Instructions Recorded Confirmed metformin 500 mg tablet 500 mg PO DAILY 07/25/21 07/25/21 metoprolol succinate 50 mg PO DAILY 07/25/21 07/25/21 Previous Rx's Medication Instructions Recorded ondansetron 4 mg disintegrating 4 mg PO Q6-8H PRN nausea and 05/01/18 tablet vomiting #10 tabs hydrocodone 5 mg-acetaminophen 325 1 tab PO Q6H PRN pain #10 tabs 07/24/21 mg tablet ondansetron 4 mg disintegrating 4 mg PO Q8H PRN nausea and 07/24/21 tablet vomiting #10 tabs promethazine 25 mg tablet 12.5 mg PO Q6HR PRN Nausea #20 tabs 07/27/21 metoclopramide HCl 10 mg tablet 10 mg PO Q6H PRN nausea and 03/03/22 (Reglan) vomiting #20 tabs promethazine 25 mg rectal 25 mg MA Q6H PRN nausea and 03/03/22 suppository vomiting #12 ea Allergies Allergy/AdvReac Type Severity Reaction Status Date / Time Iodinated Contrast Media Allergy Intermediate Verified 03/06/22 10:11 shellfish derived Allergy Intermediate Verified 03/06/22 10:11 [SHELLFISH DERIVED] codeine [CODEINE] Allergy Unknown Verified 03/06/22 10:11 Penicillins [PENICILLINS] Allergy Unknown Verified 03/06/22 10:11 Tetracyclines [TETRACYCLINES] Allergy Unknown Verified 03/06/22 10:11 Review of Systems Review of Systems Narrative: GENERAL: Denies chills, fatigue, malaise, fever, sweats, travel HEENT: Denies sinus pain, ear pain, sore throat, difficulty swallowing, neck pain RESPIRATORY: Denies dyspnea, cough, wheezing, hemoptysis, sputum. CARDIOVASCULAR: Denies chest pain, palpitations, orthopnea, edema GASTROINTESTINAL: See HPI : Denies dysuria, frequency, incontinence, hematuria, urinary retention, flank pain. MUSCULOSKELETAL: Denies weakness, joint pain, or bony pain SKIN: No rash, no erythema, no pruritus NEUROLOGIC: Denies weakness, dizziness, headache, numbness, change in speech, confusion PSYCHIATRIC: No concerning psychosocial issues. 12 point review of systems is negative except for those stated above and HPI Patient History Medical History (Updated 03/06/22 @ 16:04 by Abner Marinelli DO) Cyclic vomiting syndrome Migraine UTI (urinary tract infection) Surgical History Status post cholecystectomy Status post tubal ligation Social History household members: spouse Smoking Status: Never smoker Smoking Status: Never smoker alcohol intake frequency: holidays/special occasions only Substance Use Type: marijuana Exam Initial Vital Signs Initial Vital Signs: Vital Signs Temperature 97.7 F 03/02/22 21:44 Pulse Rate 75 03/02/22 21:44 Respiratory Rate 18 03/02/22 21:44 Blood Pressure 176/84 H 03/02/22 21:44 Pulse Oximetry 100 03/02/22 21:44 Oxygen Delivery Method 03/02/22 21:44 GENERAL: Alert 56-year-old female dry heaving appears uncomfortable shivering cold HEENT: Head atraumatic,EOMI, pupils reactive, face symmetric, moist mucous membranes CARDIOVASCULAR: Regular rate and rhythm without murmurs, rubs or gallops. RESPIRATORY: Breath sounds equal bilaterally, no wheezes rales or rhonchi. ABDOMEN: Soft, nontender. Normoactive bowel sounds all 4 quadrants. No guarding or rebound. EXTREMITIES: Normal range of motion, no clubbing or edema. Neurovascularly intact NEUROLOGICAL: Alert and oriented x4.Normal gait and speech. SKIN: Warm, dry, no laceration, no petechiae, no rashes or lesions. Course Orders Ordered: Discontinued Medications Hydromorphone HCl (Hydromorphone 1 Mg Inj) 1 mg IV NOW ONE Stop: 03/02/22 22:44 Last Admin: 03/02/22 22:50 Dose: 1 mg Documented By: VIKA Ketorolac Tromethamine (Ketorolac 30 Mg/Ml Vial) 15 mg IV NOW ONE Stop: 03/03/22 01:43 Last Admin: 03/03/22 01:48 Dose: 15 mg Documented By: VIKA Lorazepam (Lorazepam 2 Mg/Ml Inj) 1 mg IV NOW ONE Stop: 03/02/22 23:56 Last Admin: 03/02/22 23:57 Dose: Not Given Documented By: VIKA Metoclopramide HCl (Metoclopramide 10 Mg/2 Ml Inj) 10 mg IV NOW ONE Stop: 03/03/22 02:12 Last Admin: 03/03/22 02:34 Dose: 10 mg Documented By: JOSÉ ANTONIO Ondansetron HCl (Ondansetron 4 Mg Odt) 4 mg PO NOW ONE Stop: 03/02/22 21:55 Last Admin: 03/02/22 23:03 Dose: Not Given Documented By: VIKA Ondansetron HCl (Ondansetron 4 Mg/2 Ml Inj) 4 mg IV NOW ONE Stop: 03/02/22 21:55 Last Admin: 03/02/22 22:01 Dose: 4 mg Documented By: VIKA Pantoprazole Sodium (Pantoprazole 40 Mg Vial) 40 mg IV NOW ONE Stop: 03/02/22 21:59 Last Admin: 03/02/22 22:04 Dose: 40 mg Documented By: VIKA Vital Signs Vital signs: Vital Signs - 8 hr 03/02/22 21:44 03/02/22 23:33 03/03/22 00:45 Temperature 97.7 F Pulse Rate 75 85 56 L Respiratory Rate 18 14 14 Blood Pressure 176/84 H 149/80 H 146/63 H Pulse Oximetry 100 100 93 Oxygen Delivery Method Room Air Room Air Oxygen Flow Rate 03/03/22 01:05 Temperature Pulse Rate 53 L Respiratory Rate 14 Blood Pressure 143/83 H Pulse Oximetry 97 Oxygen Delivery Method Nasal Cannula Oxygen Flow Rate 2 MDM - Nausea/Vomiting/Diarrhea Lab Data Result diagrams: 03/02/22 21:51 03/02/22 21:51 Labs: Lab Results 03/02/22 03/02/22 03/02/22 Range/Units 21:51 21:51 21:51 WBC 13.5 H (4.5-11.0) X10^3/uL RBC 5.12 (4.0-5.2) X10^6/uL Hgb 15.3 (12.0-16.0) g/dL Hct 44.8 (36-46) % MCV 87.5 (80-100) fL MCH 29.9 (26-34) PG MCHC 34.2 (30-36) % RDW 13.1 (11.6-14.8) % Plt Count 280 (150-400) X10^3/uL Neut % (Auto) 78.8 H (50-75) % Lymph % (Auto) 16.7 L (25-40) % [place] % (Auto) 3.2 (3-14) % Eos % (Auto) 0.5 L (2-4) % Baso % (Auto) 0.8 (0-2) % Neut # (Auto) 54919 H (4776-3897) /uL Lymph # (Auto) 2300 (8144-5861) /uL [place] # (Auto) 400 (0-900) /uL Eos # (Auto) 100 (0-450) /uL Baso # (Auto) 100 (0-100) /uL Sodium 143 (137-145) mmol/L Potassium 3.5 (3.4-5.1) mmol/L Chloride 109 H (98-107) mmol/L Carbon Dioxide 21 L (22-32) mmol/L BUN 16 (7-17) mg/dL Creatinine 0.86 (0.52-1.04) mg/dL Estimated GFR > 60 (>60) mL/min BUN/Creatinine Ratio 18.6 (6-22) Glucose 197 H (70-100) mg/dL Lactate (0.7-2.1) mmol/L Calcium 9.7 (8.4-10.2) mg/dL Total Bilirubin 0.4 (0.2-1.3) mg/dL AST 20 (14-36) IU/L ALT 24 (<35) IU/L Alkaline Phosphatase 151 H (38-126) U/L Total Protein 7.9 (6.3-8.2) g/dL Albumin 4.6 (3.5-5.0) g/dL Globulin 3.3 (1.7-4.1) g/dL Albumin/Globulin Ratio 1.4 (1.0-2.8) Lipase 139 (23-300) U/L U Opiates 300ng/mL cut (Negative) Ur Oxycodone Screen (Negative) Urine Methadone Screen (Negative) Ur Barbiturates Screen (Negative) U Tricyclic Antidepress (Negative) Ur Phencyclidine Scrn (Negative) Ur Amphetamines Screen (Negative) U Methamphetamines Scrn (Negative) Ur MDMA Scrn (Ecstasy) (Negative) U Benzodiazepines Scrn (Negative) Urine Cocaine Screen (Negative) U Marijuana (THC) Screen (Negative) Chlamy pneumoniae PCR Not detected (Not Detect) Adenovirus (PCR) Not detected (Not Detect) B. pertussis DNA (PCR) Not detected (Not Detecte) B.parapertussis DNA PCR Not detected (Not Detecte) Coronavirus OC43 (PCR) Not detected (Not Detect) Coronavirus HKU1 (PCR) Not detected (Not Detect) Coronavirus 229E (PCR) Not detected (Not Detect) SARS-CoV-2 (PCR) Not detected (Not Detecte) Coronavirus NL63 (PCR) Not detected (Not Detect) Human Metapneumovir PCR Not detected (Not Detect) Influenza Type A (PCR) Not detected (Not Detect) Influenza Type B (PCR) Not detected (Not Detect) M. pneumoniae (PCR) Not detected (Not Detect) Parainfluenza 1 (PCR) Not detected (Not Detect) Parainfluenza 2 (PCR) Not detected (Not Detect) Parainfluenza 3 (PCR) Not detected (Not Detect) Parainfluenza 4 (PCR) Not detected (Not Detect) RSV (PCR) Not detected (Not Detect) Entero/Rhino (PCR) Not detected (Not Detect) 03/02/22 03/03/22 03/03/22 Range/Units 21:51 02:38 02:59 WBC (4.5-11.0) X10^3/uL RBC (4.0-5.2) X10^6/uL Hgb (12.0-16.0) g/dL Hct (36-46) % MCV (80-100) fL MCH (26-34) PG MCHC (30-36) % RDW (11.6-14.8) % Plt Count (150-400) X10^3/uL Neut % (Auto) (50-75) % Lymph % (Auto) (25-40) % [place] % (Auto) (3-14) % Eos % (Auto) (2-4) % Baso % (Auto) (0-2) % Neut # (Auto) (5289-7015) /uL Lymph # (Auto) (0895-1247) /uL [place] # (Auto) (0-900) /uL Eos # (Auto) (0-450) /uL Baso # (Auto) (0-100) /uL Sodium (137-145) mmol/L Potassium (3.4-5.1) mmol/L Chloride (98-107) mmol/L Carbon Dioxide (22-32) mmol/L BUN (7-17) mg/dL Creatinine (0.52-1.04) mg/dL Estimated GFR (>60) mL/min BUN/Creatinine Ratio (6-22) Glucose (70-100) mg/dL Lactate 2.2 H 2.3 H (0.7-2.1) mmol/L Calcium (8.4-10.2) mg/dL Total Bilirubin (0.2-1.3) mg/dL AST (14-36) IU/L ALT (<35) IU/L Alkaline Phosphatase (38-126) U/L Total Protein (6.3-8.2) g/dL Albumin (3.5-5.0) g/dL Globulin (1.7-4.1) g/dL Albumin/Globulin Ratio (1.0-2.8) Lipase (23-300) U/L U Opiates 300ng/mL cut Negative (Negative) Ur Oxycodone Screen Negative (Negative) Urine Methadone Screen Negative (Negative) Ur Barbiturates Screen Negative (Negative) U Tricyclic Antidepress Negative (Negative) Ur Phencyclidine Scrn Negative (Negative) Ur Amphetamines Screen Negative (Negative) U Methamphetamines Scrn Negative (Negative) Ur MDMA Scrn (Ecstasy) Negative (Negative) U Benzodiazepines Scrn Negative (Negative) Urine Cocaine Screen Negative (Negative) U Marijuana (THC) Screen Positive H (Negative) Chlamy pneumoniae PCR (Not Detect) Adenovirus (PCR) (Not Detect) B. pertussis DNA (PCR) (Not Detecte) B.parapertussis DNA PCR (Not Detecte) Coronavirus OC43 (PCR) (Not Detect) Coronavirus HKU1 (PCR) (Not Detect) Coronavirus 229E (PCR) (Not Detect) SARS-CoV-2 (PCR) (Not Detecte) Coronavirus NL63 (PCR) (Not Detect) Human Metapneumovir PCR (Not Detect) Influenza Type A (PCR) (Not Detect) Influenza Type B (PCR) (Not Detect) M. pneumoniae (PCR) (Not Detect) Parainfluenza 1 (PCR) (Not Detect) Parainfluenza 2 (PCR) (Not Detect) Parainfluenza 3 (PCR) (Not Detect) Parainfluenza 4 (PCR) (Not Detect) RSV (PCR) (Not Detect) Entero/Rhino (PCR) (Not Detect) Urine Dip Bedside Urine Glucose 100 mg/dl Bedside Urine Bilirubin - Negative Bedside Urine Ketone - Negative Bedside Urine Occult Blood - Negative Bedside Urine Urobilinogen - Negative Bedside Urine Nitrite - Negative Bedside Urine Leukocytes - Negative Esterase MDM Narrative Medical decision making narrative: Patient has been in the emergency department for 9 hours. Her vomiting has decreased she still intermittently complains of nausea. She has had vomiting syndromes in the past man may not be related to her marijuana use. Other possibility is gastroparesis. She has been sleeping most of the time. She tolerated a little bit of ice chips after 9 hours. She is given medications to go home. Her blood work is overall reassuring of significant dehydration. Her abdomen remains soft no need for imaging at this time. Discharge Plan Departure Patient Disposition: Home Clinical Impression: Cyclic vomiting syndrome Instructions: DI for Vomiting -- Adult Activity Restrictions/Additional Instructions: *You have been diagnosed with cyclic vomiting *What to do: At this time your symptoms there may not be related to her marijuana use. I do encourage you to have further outpatient is studies and testing done including possible EGD gastric emptying and possible colonoscopy. However you can also stop using marijuana to see if your symptoms improve *Continue to take medications as directed I recommend small sips of fluid and ice chips go slowly and advance diet as tolerated Phenergan suppository 25 mg every 6 hours if needed for nausea or vomiting Reglan 10 mg every 6 hours as needed for nausea or vomiting *Follow up with your primary care provider in 2-3 days or call [phone] *Return to ER if you should have persistent vomiting despite medication increased abdominal pain or any new, worsening or concerning symptoms Prescriptions: New promethazine 25 mg suppository 25 mg MA Q6H PRN (Reason: nausea and vomiting) Qty: 12 0RF metoclopramide HCl [Reglan] 10 mg tablet 10 mg PO Q6H PRN (Reason: nausea and vomiting) Qty: 20 0RF No Action ondansetron 4 mg tablet,disintegrating 4 mg PO Q6-8H PRN (Reason: nausea and vomiting) Qty: 10 0RF hydrocodone-acetaminophen 5-325 mg tablet 1 tab PO Q6H PRN (Reason: pain) Qty: 10 0RF ondansetron 4 mg tablet,disintegrating 4 mg PO Q8H PRN (Reason: nausea and vomiting) Qty: 10 0RF metformin 500 mg tablet 500 mg PO DAILY Label Comments: take 1 tablet by mouth EVERY EVENING WITH DINNER metoprolol succinate 50 mg PO DAILY promethazine 25 mg Tablet 12.5 mg PO Q6HR PRN (Reason: Nausea) Qty: 20 0RF Referrals: Lynda Sawant MD [Primary Care Provider] - Visit Report Forms: Patient Portal/API
[2022-03-02 22:47] LABS: Adenovirus Not Detected (Not Detect); Coronavirus 229E Not Detected (Not Detect); Coronavirus HKU1 Not Detected (Not Detect); Coronavirus NL 63 Not Detected (Not Detect); SARS- CoV-2 Not Detected (Not Detecte)
[2022-03-02 22:48] LABS: B. parapertussis Not Detected (Not Detecte); Bordetella pertussis Not Detected (Not Detecte); Chlamydophila pneumoniae Not Detected (Not Detect); Coronavirus OC43 Not Detected (Not Detect); Human Metapneumovirus Not Detected (Not Detect); Human Rhinovirus/Enterovirus Not Detected (Not Detect); Influenza A Not Detected (Not Detect); Influenza B Not Detected (Not Detect); Mycoplasma pneumoniae Not Detected (Not Detect); Parainfluenza Virus 1 Not Detected (Not Detect); Parainfluenza Virus 2 Not Detected (Not Detect); Parainfluenza Virus 3 Not Detected (Not Detect); Parainfluenza Virus 4 Not Detected (Not Detect); Respiratory Syncytial Virus Not Detected (Not Detect)
[2022-03-02] MEDS: HYDROMORPHONE 1 MG INJ IV (22:50)
[2022-03-02 23:33] VITALS: BP 149/80; PULSE 85; RESP 14; O2SAT 100
[2022-03-02] MEDS: LORazepam 2 MG/ML INJ (23:56)
[2022-03-03 00:03] LABS: Reflexed Lactate in 2 Hours Y
--- NOTE | 2022-03-03 00:08 | PC.NURSE ---
patient's o2 saturation was at 85% on RA after medication. She was placed on 2l NC and her o2 sat went up to 99%
--- NOTE | 2022-03-03 00:44 | PC.NURSE ---
0044 Patient laying on right side, resting with eyes closed. Respirations equal, regular and unlabored. No acute distress noted.
[2022-03-03 00:45] VITALS: BP 146/63; PULSE 56; RESP 14; O2SAT 93
[2022-03-03 01:05] VITALS: BP 143/83; PULSE 53; RESP 14; O2SAT 97
[2022-03-03] MEDS: KETOROLAC 30 MG/ML VIAL 15 MG IV (01:48)
[2022-03-03] MEDS: METOCLOPRAMIDE 10 MG/2 ML INJ IV (02:34)
[2022-03-03 02:53] VITALS: BP 142/77; PULSE 80; RESP 14; O2SAT 92
[2022-03-03 02:53] LABS: Lactate 2HR (Lactic Acid Rflx) 2.3 mmol/L (0.7-2.1)
[2022-03-03 03:17] LABS: Ur Creatinine 20 (Normal); Ur Specific Gravity >1.030 (Normal)
[2022-03-03 03:18] LABS: UR Morphine/Opiate cutoff 300 Negative (Negative); Urine Amphetamines Negative (Negative); Urine Barbiturates Negative (Negative); Urine Benzodiazepines Negative (Negative); Urine Cocaine Negative (Negative); Urine MDMA Negative (Negative); Urine Methadone Negative (Negative); Urine Methamphetamines Negative (Negative); Urine Oxycodone Negative (Negative); Urine Phencyclidine Negative (Negative); Urine Tetrahydrocannabinol Positive (Negative); Urine Tricyclic Antidepressant Negative (Negative); Urine pH 5 (Normal)
[2022-03-03 06:52] VITALS: BP 154/72; PULSE 65; RESP 16; O2SAT 93
[2022-03-03 07:19] VITALS: BP 149/67
[2022-03-03 07:24] VITALS: BP 149/67; PULSE 75; RESP 16; O2SAT 95
== END 2022-03-03 07:25 | disposition home or self-care (01) ==
PROVIDERS: Emergency Provider Emergency Medicine; PCP Internal Medicine Geriatric Medicine
DX: R11.15 Cyclical vomiting syndrome unrelated to migraine (principal); R50.9 Fever, unspecified; Z20.822 Contact with and (suspected) exposure to COVID-19
CPT/HCPCS: 36415; 80053; 80305; 81003; 83605; 83690; 85025; 87633; 96374; 96375; 99284; C9113; J1170; J1885; J2060; J2405; J2765

== ENCOUNTER 2022-03-05 07:05 | Emergency (ER) | payer OTHER, SELFPAY ==
[2021-07-25 16:07] VITALS: BMI 34.2
[2022-03-05] VITALS (16 sets, daily range): BP systolic 103–190; BP diastolic 58–100; PULSE 71–96; RESP 22; TEMP 37.2; O2SAT 90–99; BMI 31.4
--- NOTE | 2022-03-05 07:41 | ED_ITS ---
HPI - Nausea/Vomiting/Diarrhea General Chief complaint: Nausea/Vomiting/Diarrhea Stated complaint: vomiting Time Seen by Provider: 03/05/22 07:24 Source: patient Mode of arrival: Ambulatory Limitations: no limitations History of Present Illness HPI Narrative: 56-year-old female. Longstanding history GI issues to include intermittent diarrhea and also a diagnosis of cyclic vomiting syndrome. She was seen here in the emergency department several days ago for the same symptoms that she came in with today. States she was treated and felt somewhat better but then after going home her symptoms never completely resolved. She is been vomiting for the past couple days and specifically for the past several hours. She is also having some fluttering in her chest but no specific pain. She states she feels dehydrated. Related Data Home Medications Medication Instructions Recorded Confirmed metformin 500 mg tablet 500 mg PO DAILY 07/25/21 07/25/21 metoprolol succinate 50 mg PO DAILY 07/25/21 07/25/21 Previous Rx's Medication Instructions Recorded ondansetron 4 mg disintegrating 4 mg PO Q6-8H PRN nausea and 05/01/18 tablet vomiting #10 tabs hydrocodone 5 mg-acetaminophen 325 1 tab PO Q6H PRN pain #10 tabs 07/24/21 mg tablet ondansetron 4 mg disintegrating 4 mg PO Q8H PRN nausea and 07/24/21 tablet vomiting #10 tabs promethazine 25 mg tablet 12.5 mg PO Q6HR PRN Nausea #20 tabs 07/27/21 metoclopramide HCl 10 mg tablet 10 mg PO Q6H PRN nausea and 03/03/22 (Reglan) vomiting #20 tabs promethazine 25 mg rectal 25 mg MO Q6H PRN nausea and 03/03/22 suppository vomiting #12 ea Allergies Allergy/AdvReac Type Severity Reaction Status Date / Time Iodinated Contrast Media Allergy Intermediate Verified 07/26/21 11:44 shellfish derived Allergy Intermediate Verified 07/24/21 08:24 [SHELLFISH DERIVED] codeine [CODEINE] Allergy Unknown Verified 07/24/21 08:24 Penicillins [PENICILLINS] Allergy Unknown Verified 07/24/21 08:24 Tetracyclines [TETRACYCLINES] Allergy Unknown Verified 07/24/21 08:24 Review of Systems Constitutional Constitutional: Reports system reviewed and no additional complaints, except as documented Cardiovascular Cardiovascular: Reports system reviewed and no additional complaints, except as documented Respiratory Respiratory: Reports system reviewed and no additional complaints, except as documented Gastrointestinal Gastrointestinal: Reports system reviewed and no additional complaints, except as documented Genitourinary Genitourinary: Reports system reviewed and no additional complaints, except as documented Integumentary/Breasts Skin/Breast: Reports system reviewed and no additional complaints, except as documented Hematologic/Lymphatic On Anticoagulants: No Patient History Medical History (Updated 03/05/22 @ 13:54 by Abner Marinelli DO) Cyclic vomiting syndrome Migraine UTI (urinary tract infection) Surgical History Status post cholecystectomy Status post tubal ligation Social History household members: spouse Smoking Status: Never smoker Smoking Status: Never smoker alcohol intake frequency: holidays/special occasions only Substance Use Type: marijuana Exam Initial Vital Signs Initial Vital Signs: Vital Signs Temperature 99 F 03/05/22 07:10 Pulse Rate 93 H 03/05/22 07:10 Respiratory Rate 22 03/05/22 07:10 Blood Pressure 185/100 H 03/05/22 07:10 Pulse Oximetry 99 03/05/22 07:10 Oxygen Delivery Method 03/05/22 07:10 Const General: cooperative and comfortable HENMT Head: normal to inspection and normocephalic Resp Effort & Inspection: normal respiratory effort Auscultation: clear to auscultation bilaterally Cardio Rate: regular rate Rhythm: regular rhythm GI Inspection: normal to inspection Palpation: soft, No firm and tender Skin General: no rashes or lesions noted Neuro General: patient alert, patient awake and moves all extremities Speech: speech normal Extrem General: normal to inspection and capillary refill normal Psych Appearance: grossly normal Course Orders Ordered: ED Orders 03/05/22 08:55 Complete Blood Count AUTO DIFF Stat Comprehensive Metabolic Panel Stat Lipase Stat 03/05/22 11:30 Urine Culture Stat Urine Microscopic Stat Discontinued Medications Hydromorphone HCl (Hydromorphone 0.5 Mg Inj) 0.5 mg IV NOW ONE Stop: 03/05/22 12:09 Last Admin: 03/05/22 12:17 Dose: 0.5 mg Documented By: NR Sodium Chloride (Normal Saline 0.9%) 1,000 mls @ 1,000 mls/hr IV BOLUS ONE Stop: 03/05/22 08:31 Last Infusion: 03/05/22 09:30 Dose: 0 mls/hr Documented By: Admin: 03/05/22 08:03 Dose: 1,000 mls/hr Documented By: NR Sodium Chloride (Normal Saline 0.9%) 1,000 mls @ 1,000 mls/hr IV BOLUS ONE Stop: 03/05/22 09:51 Last Infusion: 03/05/22 11:09 Dose: 0 mls/hr Documented By: Admin: 03/05/22 09:23 Dose: 1,000 mls/hr Documented By: NR Lorazepam (Lorazepam 2 Mg/Ml Inj) 1 mg IV NOW ONE Stop: 03/05/22 08:13 Last Admin: 03/05/22 08:48 Dose: 1 mg Documented By: NR Metoclopramide HCl (Metoclopramide 10 Mg/2 Ml Inj) 10 mg IV NOW ONE Stop: 03/05/22 07:33 Last Admin: 03/05/22 08:03 Dose: 10 mg Documented By: NR Ondansetron HCl (Ondansetron 4 Mg/2 Ml Inj) 4 mg IV NOW ONE Stop: 03/05/22 11:25 Last Admin: 03/05/22 11:30 Dose: 4 mg Documented By: NR Pantoprazole Sodium (Pantoprazole 40 Mg Vial) 40 mg IV NOW ONE Stop: 03/05/22 08:13 Last Admin: 03/05/22 08:48 Dose: 40 mg Documented By: NR Vital Signs Vital signs: Vital Signs - 8 hr 03/05/22 07:10 03/05/22 08:52 03/05/22 08:53 Temperature 99 F Pulse Rate 93 H 84 Respiratory Rate 22 Blood Pressure 185/100 H 175/87 H Pulse Oximetry 99 96 Oxygen Delivery Method Room Air Oxygen Flow Rate 03/05/22 08:53 03/05/22 09:00 03/05/22 09:00 Temperature Pulse Rate 80 75 Respiratory Rate Blood Pressure 161/84 H Pulse Oximetry 95 94 Oxygen Delivery Method Oxygen Flow Rate 03/05/22 09:30 03/05/22 09:31 03/05/22 09:31 Temperature Pulse Rate 91 H 87 Respiratory Rate Blood Pressure 121/59 L Pulse Oximetry 92 92 Oxygen Delivery Method Nasal Cannula Oxygen Flow Rate 5 03/05/22 10:00 03/05/22 10:00 03/05/22 10:30 Temperature Pulse Rate 90 75 Respiratory Rate Blood Pressure 103/58 L Pulse Oximetry 92 95 Oxygen Delivery Method Oxygen Flow Rate 03/05/22 10:31 03/05/22 10:31 03/05/22 11:00 Temperature Pulse Rate 75 Respiratory Rate Blood Pressure 177/97 H 189/90 H Pulse Oximetry 96 Oxygen Delivery Method Oxygen Flow Rate 03/05/22 11:00 03/05/22 11:30 03/05/22 11:30 Temperature Pulse Rate 96 H 83 Respiratory Rate Blood Pressure 190/93 H Pulse Oximetry 95 97 Oxygen Delivery Method Oxygen Flow Rate 03/05/22 11:32 03/05/22 11:32 03/05/22 12:00 Temperature Pulse Rate 75 Respiratory Rate Blood Pressure 178/96 H 189/93 H Pulse Oximetry 96 Oxygen Delivery Method Oxygen Flow Rate 03/05/22 12:00 03/05/22 12:30 03/05/22 12:30 Temperature Pulse Rate 71 77 Respiratory Rate Blood Pressure 178/88 H Pulse Oximetry 96 90 L Oxygen Delivery Method Oxygen Flow Rate 03/05/22 13:00 03/05/22 13:00 03/05/22 13:30 Temperature Pulse Rate 73 Respiratory Rate Blood Pressure 179/80 H 177/93 H Pulse Oximetry 92 Oxygen Delivery Method Oxygen Flow Rate 03/05/22 13:30 Temperature Pulse Rate 81 Respiratory Rate Blood Pressure Pulse Oximetry 93 Oxygen Delivery Method Oxygen Flow Rate MDM - Nausea/Vomiting/Diarrhea Medical Records Attestation: I reviewed the patient's medical records. Lab Data Attestation: I reviewed the patient's lab results. Result diagrams: 03/05/22 08:55 03/05/22 08:55 Labs: Lab Results 03/05/22 03/05/22 03/05/22 Range/Units 07:43 07:43 08:55 WBC Cancelled 14.6 H RBC Cancelled 4.82 Hgb Cancelled 14.3 Hct Cancelled 41.4 MCV Cancelled 86.0 MCH Cancelled 29.6 MCHC Cancelled 34.5 RDW Cancelled 12.7 Plt Count Cancelled 230 Neut % (Auto) Cancelled 85.0 H Lymph % (Auto) Cancelled 8.8 L [place] % (Auto) Cancelled 5.8 Eos % (Auto) Cancelled 0.0 L Baso % (Auto) Cancelled 0.4 Neut # (Auto) Cancelled 03680 H Lymph # (Auto) Cancelled 1300 [place] # (Auto) Cancelled 800 Eos # (Auto) Cancelled 0 Baso # (Auto) Cancelled 100 Nucleated RBCs Cancelled Hypersegmented Neuts Cancelled Hypogranular Neuts Cancelled Reactive Lymphocytes Cancelled Smudge Cells Cancelled Other Cell Type Cancelled Toxic Granulation Cancelled Toxic Vacuolation Cancelled Dohle Bodies Cancelled Dolly Rods Cancelled WBC Morphology Comment Cancelled Platelet Estimate Cancelled Clumped Platelets Cancelled Plt Morphology Comment Cancelled RBC Morphology Cancelled Dimorphic RBCs Cancelled Polychromasia Cancelled Hypochromasia Cancelled Poikilocytosis Cancelled Basophilic Stippling Cancelled Anisocytosis Cancelled Microcytosis Cancelled Macrocytosis Cancelled Spherocytes Cancelled Pappenheimer Bodies Cancelled Sickle Cells Cancelled Target Cells Cancelled Tear Drop Cells Cancelled Ovalocytes Cancelled Stomatocytes Cancelled Helmet Cells Cancelled Kaur-Corn Bodies Cancelled [place] Cancelled [place] Cells Cancelled Acanthocytes (Spur) Cancelled Rouleaux Cancelled Schistocytes Cancelled Smear Path Review Cancelled Sodium Cancelled Potassium Cancelled Chloride Cancelled Carbon Dioxide Cancelled BUN Cancelled Creatinine Cancelled Estimated GFR Cancelled BUN/Creatinine Ratio Cancelled Glucose Cancelled Calcium Cancelled Total Bilirubin Cancelled AST Cancelled ALT Cancelled Alkaline Phosphatase Cancelled Total Protein Cancelled Albumin Cancelled Globulin Cancelled Albumin/Globulin Ratio Cancelled Lipase Cancelled Urine RBC (0-5/HPF) Urine WBC (0-5/HPF) Ur Squamous Epith Cells (0-5/HPF) Urine Bacteria (None) Urine Mucus (Negative) 03/05/22 03/05/22 Range/Units 08:55 11:30 WBC RBC Hgb Hct MCV MCH MCHC RDW Plt Count Neut % (Auto) Lymph % (Auto) [place] % (Auto) Eos % (Auto) Baso % (Auto) Neut # (Auto) Lymph # (Auto) [place] # (Auto) Eos # (Auto) Baso # (Auto) Nucleated RBCs Hypersegmented Neuts Hypogranular Neuts Reactive Lymphocytes Smudge Cells Other Cell Type Toxic Granulation Toxic Vacuolation Dohle Bodies [place]s WBC Morphology Comment Platelet Estimate Clumped Platelets Plt Morphology Comment RBC Morphology Dimorphic RBCs Polychromasia Hypochromasia Poikilocytosis Basophilic Stippling Anisocytosis Microcytosis Macrocytosis Spherocytes Pappenheimer Bodies Sickle Cells Target Cells Tear Drop Cells Ovalocytes Stomatocytes Helmet Cells Kaur-Corn Bodies [place] Cells Acanthocytes (Spur) Rouleaux Schistocytes Smear Path Review Sodium 136 L Potassium 3.1 L Chloride 104 Carbon Dioxide 20 L BUN 14 Creatinine 0.67 Estimated GFR > 60 BUN/Creatinine Ratio 20.9 Glucose 129 H Calcium 8.2 L Total Bilirubin 1.1 AST 23 ALT 30 Alkaline Phosphatase 94 D Total Protein 7.0 Albumin 4.0 Globulin 3.0 Albumin/Globulin Ratio 1.3 Lipase 96 Urine RBC 1-5/hpf (0-5/HPF) Urine WBC 1-5/hpf (0-5/HPF) Ur Squamous Epith Cells 0-1 /hpf (0-5/HPF) Urine Bacteria Moderate (10-30) H (None) Urine Mucus 2+ H (Negative) Urine Dip Bedside Urine Glucose Negative Bedside Urine Bilirubin - Negative Bedside Urine Ketone + 15 Urine Specific [place] 1.025 Bedside Urine Occult Blood +/- Bedside Urine pH 6.0 Bedside Urine Protein + 30 Bedside Urine Urobilinogen 0.2 Bedside Urine Nitrite - Negative Bedside Urine Leukocytes - Negative Esterase MDM Narrative Medical decision making narrative: Patient improved after above-stated therapies. Has a leukocytosis but most likely stress reaction secondary to her vomiting. She stated that the pain medicine improved her symptoms the most. She has nausea medication at home. Given her history and her presentation today I feel that we should hold on further radiologic studies as I have low suspicion for an acute surgical intra- abdominal pathology. She is tolerating oral intake. We did discuss things at home that she can try for this. Will discharge home with strict return precautions. Discharge Plan Departure Patient Disposition: Home Clinical Impression: Cyclic vomiting syndrome, Abdominal pain Instructions: DI for Cyclic Vomiting Syndrome-Adult Activity Restrictions/Additional Instructions: It is important that you try to stay hydrated by drinking small amounts of fluid. You can try popsicles like we discussed. Use your nausea medication as needed but remember this medication does not always take nausea completely away but it should help with the vomiting. Contact your primary doctor for follow- up. Prescriptions: No Action ondansetron 4 mg tablet,disintegrating 4 mg PO Q6-8H PRN (Reason: nausea and vomiting) Qty: 10 0RF hydrocodone-acetaminophen 5-325 mg tablet 1 tab PO Q6H PRN (Reason: pain) Qty: 10 0RF ondansetron 4 mg tablet,disintegrating 4 mg PO Q8H PRN (Reason: nausea and vomiting) Qty: 10 0RF metformin 500 mg tablet 500 mg PO DAILY Label Comments: take 1 tablet by mouth EVERY EVENING WITH DINNER metoprolol succinate 50 mg PO DAILY promethazine 25 mg Tablet 12.5 mg PO Q6HR PRN (Reason: Nausea) Qty: 20 0RF promethazine 25 mg suppository 25 mg MO Q6H PRN (Reason: nausea and vomiting) Qty: 12 0RF metoclopramide HCl [Reglan] 10 mg tablet 10 mg PO Q6H PRN (Reason: nausea and vomiting) Qty: 20 0RF Referrals: Lynda Sawant MD [Primary Care Provider] -
[2022-03-05] MEDS: METOCLOPRAMIDE 10 MG/2 ML INJ IV (08:03)
[2022-03-05] MEDS: SODIUM CHLORIDE 0.9% 1,000 ML 1000 ML IV ×2 (08:03→09:23)
[2022-03-05] MEDS: PANTOPRAZOLE 40 MG VIAL IV (08:48)
[2022-03-05] MEDS: LORazepam 2 MG/ML INJ 1 MG IV (08:48)
[2022-03-05 09:14] LABS: Add Manual Diff / Slide Review NO; Basophils Absolute Auto 100 /uL (0-100); Basophils Percent Auto 0.4 % (0-2); Eosinophils Absolute Auto 0 /uL (0-450); Hematocrit 41.4 % (36-46); Hemoglobin 14.3 g/dL (12.0-16.0); Lymphocytes Absolute Auto 1300 /uL (1100-4500); Lymphocytes Percent Auto 8.8 % (25-40); Mean Corpuscular HGB Conc 34.5 % (30-36); Mean Corpuscular Hemoglobin 29.6 PG (26-34); Monocytes Absolute Auto 800 /uL (0-900); Monocytes Percent Auto 5.8 % (3-14); Neutrophils Absolute Auto 12400 /uL (1500-7000); Platelet Count 230 X10^3/uL (150-400); Red Blood Cell Count 4.82 X10^6/uL (4.0-5.2); Red Cell Distribution Width 12.7 % (11.6-14.8); White Blood Cell Count 14.6 X10^3/uL (4.5-11.0)
[2022-03-05 09:19] LABS: Alanine Aminotransferase 30 IU/L (<35); Albumin Globulin Ratio 1.3 (1.0-2.8); Alkaline Phosphatase 94 U/L (38-126); Aspartate Aminotransferase 23 IU/L (14-36); BUN Creatinine Ratio 20.9 (6-22); Bilirubin Total 1.1 mg/dL (0.2-1.3); Blood Urea Nitrogen 14 mg/dL (7-17); Calcium 8.2 mg/dL (8.4-10.2); Carbon Dioxide 20 mmol/L (22-32); Chloride 104 mmol/L (98-107); Estimated Glomerular Filt Rate > 60 mL/min (>60); Glucose 129 mg/dL (70-100); HEMOLYSIS < 15 (0-50); Lipase 96 U/L (23-300); Potassium 3.1 mmol/L (3.4-5.1); Sodium 136 mmol/L (137-145)
[2022-03-05] MEDS: ONDANSETRON 4 MG/2 ML INJ IV (11:30)
--- NOTE | 2022-03-05 11:34 | PC.NURSE ---
at provider and patient request PO challenge initiated. patient had one spoonful of ice chips and started vomiting. provider notified, order for nausea medications given
[2022-03-05 12:14] LABS: RBC Urine 1-5/HPF (0-5/HPF); Squamous Epithelial Cell Urine 0-1 /HPF (0-5/HPF); WBC Urine 1-5/HPF (0-5/HPF)
[2022-03-05 12:15] LABS: Bacteria Urine Moderate (10-30); Mucus Urine 2+ (Negative)
[2022-03-05] MEDS: HYDROMORPHONE 0.5 MG INJ IV (12:17)
--- NOTE | 2022-03-05 13:46 | PC.NURSE ---
starting at 1306 pt began eating one ice chip at a time. able to tolerate 5 ice chips by 1330. provider notified.
== END 2022-03-05 14:15 | disposition home or self-care (01) ==
PROVIDERS: Emergency Provider Emergency Medicine; PCP Internal Medicine Geriatric Medicine
DX: R11.15 Cyclical vomiting syndrome unrelated to migraine (principal); R10.9 Unspecified abdominal pain
CPT/HCPCS: 36415; 80053; 81003; 81015; 83690; 85025; 87086; 96361; 96374; 96375; 99284; C9113; J1170; J2060; J2405; J2765

== ENCOUNTER 2022-03-06 08:47 | Emergency (ER) | payer OTHER, SELFPAY ==
[2021-07-25 16:07] VITALS: BMI 34.2
[2022-03-06] VITALS (9 sets, daily range): BP systolic 109–171; BP diastolic 61–98; PULSE 70–90; RESP 16–22; TEMP 36.9; O2SAT 81–98; BMI 31.3
--- NOTE | 2022-03-06 09:19 | ED.NAVMDI ---
HPI - Nausea/Vomiting/Diarrhea General Chief complaint: Nausea/Vomiting/Diarrhea Stated complaint: vomiting Time Seen by Provider: 03/06/22 09:01 Source: patient Mode of arrival: Ambulatory History of Present Illness HPI Narrative: Patient is a 56-year-old female. I evaluated her here in the emergency department yesterday for the same symptoms that she arrives with today. She does have a history of cyclic vomiting syndrome. There is some reported history of potentially this being cannabis hyperemesis. She does admit to smoking marijuana. This is her 3rd visit in the past week for the same symptoms. She states that normally does not last this long. She is multiple antiemetics at home and has not had any improvement with these. After she was discharged yesterday she stated that the symptoms started to return and she did not get much sleep last night because of discomfort and also vomiting. No fevers. Has not had a bowel movement in a few days because of the pain medications. Related Data Home Medications Medication Instructions Recorded Confirmed metformin 500 mg tablet 500 mg PO DAILY 07/25/21 07/25/21 metoprolol succinate 50 mg PO DAILY 07/25/21 07/25/21 Previous Rx's Medication Instructions Recorded ondansetron 4 mg disintegrating 4 mg PO Q6-8H PRN nausea and 05/01/18 tablet vomiting #10 tabs hydrocodone 5 mg-acetaminophen 325 1 tab PO Q6H PRN pain #10 tabs 07/24/21 mg tablet ondansetron 4 mg disintegrating 4 mg PO Q8H PRN nausea and 07/24/21 tablet vomiting #10 tabs promethazine 25 mg tablet 12.5 mg PO Q6HR PRN Nausea #20 tabs 07/27/21 metoclopramide HCl 10 mg tablet 10 mg PO Q6H PRN nausea and 03/03/22 (Reglan) vomiting #20 tabs promethazine 25 mg rectal 25 mg VA Q6H PRN nausea and 03/03/22 suppository vomiting #12 ea Allergies Allergy/AdvReac Type Severity Reaction Status Date / Time Iodinated Contrast Media Allergy Intermediate Verified 03/06/22 10:11 shellfish derived Allergy Intermediate Verified 03/06/22 10:11 [SHELLFISH DERIVED] codeine [CODEINE] Allergy Unknown Verified 03/06/22 10:11 Penicillins [PENICILLINS] Allergy Unknown Verified 03/06/22 10:11 Tetracyclines [TETRACYCLINES] Allergy Unknown Verified 03/06/22 10:11 Review of Systems Constitutional Constitutional: Reports system reviewed and no additional complaints, except as documented Cardiovascular Cardiovascular: Reports system reviewed and no additional complaints, except as documented Respiratory Respiratory: Reports system reviewed and no additional complaints, except as documented Gastrointestinal Gastrointestinal: Reports system reviewed and no additional complaints, except as documented Integumentary/Breasts Skin/Breast: Reports system reviewed and no additional complaints, except as documented Patient History Medical History (Updated 03/06/22 @ 16:04 by Abner Marinelli DO) Cyclic vomiting syndrome Migraine UTI (urinary tract infection) Surgical History Status post cholecystectomy Status post tubal ligation Social History household members: spouse Smoking Status: Never smoker Smoking Status: Never smoker alcohol intake frequency: holidays/special occasions only Substance Use Type: marijuana Exam Initial Vital Signs Initial Vital Signs: Vital Signs Temperature 98.4 F 03/06/22 09:07 Pulse Rate 90 03/06/22 09:07 Respiratory Rate 22 03/06/22 09:07 Blood Pressure 171/98 H 03/06/22 09:07 Pulse Oximetry 97 03/06/22 09:07 Oxygen Delivery Method 03/06/22 09:07 Const General: cooperative HENMT Head: normal to inspection and normocephalic Resp Effort & Inspection: normal respiratory effort Cardio Rate: regular rate GI Inspection: normal to inspection and non-distended Palpation: tender Skin General: no rashes or lesions noted Neuro General: patient alert, patient awake and moves all extremities Extrem General: normal to inspection Course Orders Ordered: ED Orders 03/06/22 09:28 CT abdomen pelvis w con Stat 03/06/22 09:50 Complete Blood Count AUTO DIFF Stat Comprehensive Metabolic Panel Stat Lipase Stat Discontinued Medications Diphenhydramine HCl (Diphenhydramine 50 Mg/Ml Vial) 25 mg IV NOW ONE Stop: 03/06/22 09:43 Last Admin: 03/06/22 10:02 Dose: 25 mg Documented By: ISI Haloperidol (Haloperidol 5 Mg/Ml Vial) 5 mg IV NOW ONE Stop: 03/06/22 09:32 Last Admin: 03/06/22 10:02 Dose: 5 mg Documented By: ISI Sodium Chloride (Normal Saline 0.9%) 1,000 mls @ 1,000 mls/hr IV BOLUS ONE Stop: 03/06/22 10:25 Last Infusion: 03/06/22 11:06 Dose: 0 mls/hr Documented By: Admin: 03/06/22 10:02 Dose: 1,000 mls/hr Documented By: ISI POTASSIUM CHLORIDE IN WATER (Potassium Cl 10 Meq/100 Ml Rhonda) 10 meq in 100 mls @ 100 mls/hr IV Q1H SHEFALI Stop: 03/06/22 14:29 Last Infusion: 03/06/22 16:01 Dose: 0 mls/hr Documented By: Admin: 03/06/22 14:47 Dose: 100 mls/hr Documented By: Infusion: 03/06/22 14:46 Dose: 0 mls/hr Documented By: Admin: 03/06/22 13:37 Dose: 100 mls/hr Documented By: Infusion: 03/06/22 13:24 Dose: 100 mls/hr Documented By: Infusion: 03/06/22 13:15 Dose: 0 mls/hr Documented By: Admin: 03/06/22 12:24 Dose: 100 mls/hr Documented By: Infusion: 03/06/22 12:13 Dose: 100 mls/hr Documented By: Admin: 03/06/22 11:13 Dose: 100 mls/hr Documented By: STEFFEN Methylprednisolone (Methylprednisolone 125 Mg/2 Ml Vial) 40 mg IV NOW ONE Stop: 03/06/22 09:43 Last Admin: 03/06/22 10:02 Dose: 40 mg Documented By: ISI Vital Signs Vital signs: Vital Signs - 8 hr 03/06/22 09:07 03/06/22 09:52 03/06/22 09:52 Temperature 98.4 F Pulse Rate 90 84 Respiratory Rate 22 Blood Pressure 171/98 H 128/87 Pulse Oximetry 97 95 Oxygen Delivery Method Room Air 03/06/22 10:00 03/06/22 10:00 03/06/22 10:21 Temperature Pulse Rate 83 70 Respiratory Rate Blood Pressure 135/86 Pulse Oximetry 95 90 L Oxygen Delivery Method 03/06/22 10:21 03/06/22 10:30 03/06/22 10:30 Temperature Pulse Rate 74 Respiratory Rate Blood Pressure 127/68 123/70 Pulse Oximetry 81 L Oxygen Delivery Method 03/06/22 11:00 03/06/22 11:00 03/06/22 11:30 Temperature Pulse Rate 79 Respiratory Rate Blood Pressure 109/61 124/71 Pulse Oximetry 92 Oxygen Delivery Method 03/06/22 11:30 03/06/22 12:00 03/06/22 12:00 Temperature Pulse Rate 80 79 Respiratory Rate Blood Pressure 115/72 Pulse Oximetry 95 94 Oxygen Delivery Method MDM - Nausea/Vomiting/Diarrhea Medical Records Attestation: I reviewed the patient's medical records. Lab Data Attestation: I reviewed the patient's lab results. Result diagrams: 03/06/22 09:50 03/06/22 09:50 Labs: Lab Results 03/06/22 03/06/22 Range/Units 09:50 09:50 WBC 12.0 H (4.5-11.0) X10^3/uL RBC 4.95 (4.0-5.2) X10^6/uL Hgb 14.7 (12.0-16.0) g/dL Hct 41.8 (36-46) % MCV 84.4 (80-100) fL MCH 29.8 (26-34) PG MCHC 35.3 (30-36) % RDW 12.6 (11.6-14.8) % Plt Count 256 (150-400) X10^3/uL Neut % (Auto) 77.0 H (50-75) % Lymph % (Auto) 15.7 L (25-40) % [place] % (Auto) 6.5 (3-14) % Eos % (Auto) 0.2 L (2-4) % Baso % (Auto) 0.6 (0-2) % Neut # (Auto) 9200 H (4042-7336) /uL Lymph # (Auto) 1900 (3643-0859) /uL [place] # (Auto) 800 (0-900) /uL Eos # (Auto) 0 (0-450) /uL Baso # (Auto) 100 (0-100) /uL Sodium 135 L (137-145) mmol/L Potassium 2.9 L (3.4-5.1) mmol/L Chloride 103 (98-107) mmol/L Carbon Dioxide 21 L (22-32) mmol/L BUN 13 (7-17) mg/dL Creatinine 0.67 (0.52-1.04) mg/dL Estimated GFR > 60 (>60) mL/min BUN/Creatinine Ratio 19.4 (6-22) Glucose 112 H (70-100) mg/dL Calcium 8.9 (8.4-10.2) mg/dL Total Bilirubin 1.2 (0.2-1.3) mg/dL AST 24 (14-36) IU/L ALT 29 (<35) IU/L Alkaline Phosphatase 94 (38-126) U/L Total Protein 7.4 (6.3-8.2) g/dL Albumin 4.2 (3.5-5.0) g/dL Globulin 3.2 (1.7-4.1) g/dL Albumin/Globulin Ratio 1.3 (1.0-2.8) Lipase 103 (23-300) U/L Imaging Data CT scan - abdomen/pelvis: Radiologist's Impression: [address] [address] [address] Scan Report Signed Patient: Rosemarie Callahan MR#: [id number] : 1965 Acct:[id number] Age/Sex: 56 / F Date of Service: 03/06/22 Loc: ED Accession Number: [id number] ?? Procedure: CT abdomen pelvis w con Ordering Provider: Abner Marinelli D.O. PROCEDURE:? CT ABDOMEN PELVIS W CON ? INDICATIONS:? Generalized abdominal pain with vomiting ? TECHNIQUE:? After the administration of IV contrast, axial sections were acquired from the lung bases to the pubic symphysis.? Coronal and sagittal reformats were performed.? For radiation dose reduction, the following was used:? automated exposure control, adjustment of mA and/or kV according to patient size. ? COMPARISON:? [facility], CT, CT ABDOMEN PELVIS W CON, 07/24/2021, 9:46.? [facility], CR, XR ABDOMEN 1V, 07/26/2021, 13:11.? [facility], CT, CT CHEST ABD PEL W CON, 07/25/2021, 8:21. ? FINDINGS:? Image quality:? Excellent.? ? Lung bases:? Persistent lung base scarring can be seen. Heart:? No significant findings.? There is a right perihilar cystic lesion partially seen, which is better demonstrated on the prior CT dated 07/25/2021. ? ? ABDOMEN: Liver: Diffuse fatty liver infiltration is noted.? Incidental note is made of focal fatty infiltration adjacent to the falciform ligament, which is not regarded to be pathologic.? The liver is normal in size and demonstrates no suspicious lesions. Gallbladder:? Removed.? ? ? Biliary ducts:? Unremarkable.? ? Pancreas:? Unremarkable.? ? Spleen:? Unremarkable.? ? Adrenal Glands:? Unremarkable.? ? Kidneys and Ureters:? Unremarkable.? ? ? Stomach and Bowel:? Stomach, small bowel loops, and colon are unremarkable.? Mild distal colonic diverticulosis is seen, without findings active diverticulitis.? A normal appendix is seen. Peritoneum:? No abnormal intraperitoneal fluid.? No free air.? ? Ventral Wall: A mild periumbilical hernia is seen, containing fat. ? Abdominal Nodes:? No retroperitoneal or mesenteric adenopathy by size criteria.? Vessels:? Aorta and inferior vena cava are normal in size.? ? PELVIS: Pelvic Organs: This patient is status post hysterectomy. No adnexal masses are seen.? Bladder:? Unremarkable.? ? Pelvic Nodes: No enlarged lymph nodes.? Miscellaneous: No inguinal hernias are seen. ? ? ? Bones:? Focal L5-S1 degenerative change is seen.? Milder degenerative changes are seen elsewhere.? ? ? IMPRESSION:? ? No dilated loops of small bowel are seen. ? Normal appendix. ? ? Additional findings: Partially visualized right perihilar cystic lesion Stable lung base scarring Fatty infiltration of the liver Cholecystectomy Mild fat containing periumbilical hernia Hysterectomy Focal L5-S1 degenerative change? ? Dictated by: Steffen Izquierdo M.D. on 03/06/2022 at 10:06 ? ? Approved by: Steffen Izquierdo M.D. on 03/06/2022 at 10:08?? [facility] Narrative Medical decision making narrative: She presents today very similar to what she did yesterday. She is tried all of her home medications. Had a discussion with her regarding her symptoms. We both agreed that her symptoms have lasted longer than what is ?normal? for her so a CT scan of her abdomen was ordered. This showed no acute pathology. Had a long discussion with her regarding treatment here in the emergency department. I asked her to allow me to try Haldol to see if this did not help her symptoms. She received 1 dose of Haldol and she had an almost complete resolution of her symptoms with time. She actually stated that she felt hungry. She was tolerating oral intake. She did express gratitude for helping with her symptoms. I informed her that if this were to happen again that she should ask the emergency physician to try Haldol 1st before other medications specifically opioids. She stated that she absolutely would do this has she states that she does not like the opioids because it makes her constipated which then causes the abdominal pain and all of her other symptoms worse. She is going to contact her primary doctor for follow-up. Discharge Plan Departure Patient Disposition: Home Clinical Impression: Cyclic vomiting syndrome, Hypokalemia Instructions: DI for Cyclic Vomiting Syndrome-Adult Activity Restrictions/Additional Instructions: I do recommend a bland diet over the next couple days and gradually increasing your fluid intake. Do contact your primary doctor for follow-up. Return to the emergency department for any new or worsening symptoms. Prescriptions: No Action ondansetron 4 mg tablet,disintegrating 4 mg PO Q6-8H PRN (Reason: nausea and vomiting) Qty: 10 0RF hydrocodone-acetaminophen 5-325 mg tablet 1 tab PO Q6H PRN (Reason: pain) Qty: 10 0RF ondansetron 4 mg tablet,disintegrating 4 mg PO Q8H PRN (Reason: nausea and vomiting) Qty: 10 0RF metformin 500 mg tablet 500 mg PO DAILY Label Comments: take 1 tablet by mouth EVERY EVENING WITH DINNER metoprolol succinate 50 mg PO DAILY promethazine 25 mg Tablet 12.5 mg PO Q6HR PRN (Reason: Nausea) Qty: 20 0RF promethazine 25 mg suppository 25 mg VA Q6H PRN (Reason: nausea and vomiting) Qty: 12 0RF metoclopramide HCl [Reglan] 10 mg tablet 10 mg PO Q6H PRN (Reason: nausea and vomiting) Qty: 20 0RF Referrals: Lynda Sawant MD [Primary Care Provider] -
--- NOTE | 2022-03-06 09:28 | DI.CT.S_ITS ---
PROCEDURE: CT ABDOMEN PELVIS W CON INDICATIONS: Generalized abdominal pain with vomiting TECHNIQUE: After the administration of IV contrast, axial sections were acquired from the lung bases to the pubic symphysis. Coronal and sagittal reformats were performed. For radiation dose reduction, the following was used: automated exposure control, adjustment of mA and/or kV according to patient size. COMPARISON: [facility], CT, CT ABDOMEN PELVIS W CON, 07/24/2021, 9:46. [facility], CR, XR ABDOMEN 1V, 07/26/2021, 13:11. [facility], CT, CT CHEST ABD PEL W CON, 07/25/2021, 8:21. FINDINGS: Image quality: Excellent. Lung bases: Persistent lung base scarring can be seen. Heart: No significant findings. There is a right perihilar cystic lesion partially seen, which is better demonstrated on the prior CT dated 07/25/2021. ABDOMEN: Liver: Diffuse fatty liver infiltration is noted. Incidental note is made of focal fatty infiltration adjacent to the falciform ligament, which is not regarded to be pathologic. The liver is normal in size and demonstrates no suspicious lesions. Gallbladder: Removed. Biliary ducts: Unremarkable. Pancreas: Unremarkable. Spleen: Unremarkable. Adrenal Glands: Unremarkable. Kidneys and Ureters: Unremarkable. Stomach and Bowel: Stomach, small bowel loops, and colon are unremarkable. Mild distal colonic diverticulosis is seen, without findings active diverticulitis. A normal appendix is seen. Peritoneum: No abnormal intraperitoneal fluid. No free air. Ventral Wall: A mild periumbilical hernia is seen, containing fat. Abdominal Nodes: No retroperitoneal or mesenteric adenopathy by size criteria. Vessels: Aorta and inferior vena cava are normal in size. PELVIS: Pelvic Organs: This patient is status post hysterectomy. No adnexal masses are seen. Bladder: Unremarkable. Pelvic Nodes: No enlarged lymph nodes. Miscellaneous: No inguinal hernias are seen. Bones: Focal L5-S1 degenerative change is seen. Milder degenerative changes are seen elsewhere. IMPRESSION: No dilated loops of small bowel are seen. Normal appendix. Additional findings: Partially visualized right perihilar cystic lesion Stable lung base scarring Fatty infiltration of the liver Cholecystectomy Mild fat containing periumbilical hernia Hysterectomy Focal L5-S1 degenerative change Dictated by: Steffen Izquierdo M.D. on 03/06/2022 at 10:06 Approved by: Steffen Izquierdo M.D. on 03/06/2022 at 10:08
[2022-03-06 10:00] LABS: Add Manual Diff / Slide Review NO; Basophils Absolute Auto 100 /uL (0-100); Basophils Percent Auto 0.6 % (0-2); Eosinophils Absolute Auto 0 /uL (0-450); Eosinophils Percent Auto 0.2 % (2-4); Hematocrit 41.8 % (36-46); Hemoglobin 14.7 g/dL (12.0-16.0); Lymphocytes Absolute Auto 1900 /uL (1100-4500); Lymphocytes Percent Auto 15.7 % (25-40); Mean Corpuscular HGB Conc 35.3 % (30-36); Mean Corpuscular Hemoglobin 29.8 PG (26-34); Mean Corpuscular Volume 84.4 fL (80-100); Monocytes Absolute Auto 800 /uL (0-900); Monocytes Percent Auto 6.5 % (3-14); Neutrophils Absolute Auto 9200 /uL (1500-7000); Platelet Count 256 X10^3/uL (150-400); Red Blood Cell Count 4.95 X10^6/uL (4.0-5.2); Red Cell Distribution Width 12.6 % (11.6-14.8)
[2022-03-06] MEDS: diphenhydrAMINE 50 MG/ML VIAL 25 MG IV (10:02)
[2022-03-06] MEDS: SODIUM CHLORIDE 0.9% 1,000 ML 1000 ML IV (10:02)
[2022-03-06] MEDS: methylPREDNISolone 125 MG/2 ML VIAL 40 MG IV (10:02)
[2022-03-06] MEDS: HALOPERIDOL 5 MG/ML VIAL IV (10:02)
[2022-03-06 10:17] LABS: Alanine Aminotransferase 29 IU/L (<35); Albumin 4.2 g/dL (3.5-5.0); Albumin Globulin Ratio 1.3 (1.0-2.8); Alkaline Phosphatase 94 U/L (38-126); Aspartate Aminotransferase 24 IU/L (14-36); BUN Creatinine Ratio 19.4 (6-22); Bilirubin Total 1.2 mg/dL (0.2-1.3); Blood Urea Nitrogen 13 mg/dL (7-17); Calcium 8.9 mg/dL (8.4-10.2); Carbon Dioxide 21 mmol/L (22-32); Chloride 103 mmol/L (98-107); Estimated Glomerular Filt Rate > 60 mL/min (>60); Globulin 3.2 g/dL (1.7-4.1); Glucose 112 mg/dL (70-100); HEMOLYSIS 39 (0-50); Lipase 103 U/L (23-300); Potassium 2.9 mmol/L (3.4-5.1); Sodium 135 mmol/L (137-145); Total Protein 7.4 g/dL (6.3-8.2)
[2022-03-06] MEDS: POTASSIUM CHLORIDE IN WATER 10 MEQ/100 ML PIGGYBACK 100 MEQ IV ×4 (11:13→14:47)
--- NOTE | 2022-03-06 15:46 | PC.NURSE ---
Pt has had no nausea and or vomiting since I came on shift at 1315. Pt given ice ships and tolerated well.
== END 2022-03-06 16:17 | disposition home or self-care (01) ==
PROVIDERS: Emergency Provider Emergency Medicine; PCP Internal Medicine Geriatric Medicine
DX: R11.15 Cyclical vomiting syndrome unrelated to migraine (principal); E87.6 Hypokalemia; R10.84 Generalized abdominal pain
CPT/HCPCS: 36415; 74177; 80053; 83690; 85025; 96361; 96365; 96366; 96375; 99284; J1200; J1630; J2930; Q9967

== ENCOUNTER 2022-04-20 09:43 | Emergency (ER) | payer OTHER, SELFPAY ==
[2021-07-25 16:07] VITALS: BMI 34.2
[2022-04-20] VITALS (20 sets, daily range): BP systolic 114–208; BP diastolic 63–103; PULSE 69–114; RESP 18–20; TEMP 36.5; O2SAT 93–99; BMI 31.3
[2022-04-20] MEDS: ONDANSETRON 4 MG/2 ML INJ (10:13)
[2022-04-20 10:18] LABS: Add Manual Diff / Slide Review NO; Basophils Absolute Auto 100 /uL (0-100); Basophils Percent Auto 0.7 % (0-2); Eosinophils Absolute Auto 100 /uL (0-450); Eosinophils Percent Auto 0.9 % (2-4); Hematocrit 46.7 % (36-46); Lymphocytes Absolute Auto 3500 /uL (1100-4500); Lymphocytes Percent Auto 25.7 % (25-40); Mean Corpuscular HGB Conc 34.2 % (30-36); Mean Corpuscular Hemoglobin 30.1 PG (26-34); Monocytes Absolute Auto 700 /uL (0-900); Monocytes Percent Auto 4.9 % (3-14); Neutrophils Absolute Auto 9100 /uL (1500-7000); Neutrophils Percent Auto 67.8 % (50-75); Platelet Count 295 X10^3/uL (150-400); Red Cell Distribution Width 13.5 % (11.6-14.8); White Blood Cell Count 13.4 X10^3/uL (4.5-11.0)
[2022-04-20 10:26] LABS: Alanine Aminotransferase 24 IU/L (<35); Albumin Globulin Ratio 1.4 (1.0-2.8); Alkaline Phosphatase 135 U/L (38-126); Aspartate Aminotransferase 22 IU/L (14-36); BUN Creatinine Ratio 11.1 (6-22); Bilirubin Total 0.6 mg/dL (0.2-1.3); Blood Urea Nitrogen 9 mg/dL (7-17); Carbon Dioxide 21 mmol/L (22-32); Chloride 109 mmol/L (98-107); Estimated Glomerular Filt Rate > 60 mL/min (>60); Globulin 3.5 g/dL (1.7-4.1); Glucose 132 mg/dL (70-100); HEMOLYSIS < 15 (0-50); Lipase 159 U/L (23-300); Magnesium 2.2 mg/dL (1.6-2.3); Potassium 3.4 mmol/L (3.4-5.1); Sodium 144 mmol/L (137-145); Total Protein 8.5 g/dL (6.3-8.2)
[2022-04-20] MEDS: SODIUM CHLORIDE 0.9% 1,000 ML 1000 ML IV ×2 (10:30→14:55)
[2022-04-20] MEDS: HYDROMORPHONE 1 MG INJ IV (10:31)
[2022-04-20] MEDS: diphenhydrAMINE 50 MG/ML VIAL 25 MG IV (10:31)
[2022-04-20] MEDS: HALOPERIDOL 5 MG/ML VIAL 2 MG IV (10:32)
[2022-04-20 10:38] LABS: Troponin I < 0.012 ng/mL (0.01-0.034)
--- NOTE | 2022-04-20 14:49 | ED_ITS ---
HPI - Nausea/Vomiting/Diarrhea General Chief complaint: Nausea/Vomiting/Diarrhea Stated complaint: V/D t-1 Time Seen by Provider: 04/20/22 09:46 Source: patient and family Mode of arrival: Ambulatory History of Present Illness HPI Narrative: 56-year-old woman with a history of [id number]-[id number] diabetes and hypertension presents with recurrent episode of severe abdominal pain with retching. She states that this has been a recurrent issue for her for a number of years she is had thorough workup including upper and lower endoscopies. After her gallbladder was removed her symptoms were quite as severe. She notes no alcohol use no use of THC. Last episode of severe abdominal pain with vomiting was about a year ago. Episode today started at 8:00 p.m. last night associated with watery diarrhea, no fevers severe vomiting to the point of simply dry heaving miserably to the point where she is having difficulty speaking. She reports no change to medications and nothing that would obviously set off current episode Related Data Home Medications Medication Instructions Recorded Confirmed metformin 500 mg tablet 500 mg PO DAILY 07/25/21 07/25/21 metoprolol succinate 50 mg PO DAILY 07/25/21 07/25/21 Previous Rx's Medication Instructions Recorded ondansetron 4 mg disintegrating 4 mg PO Q6-8H PRN nausea and 05/01/18 tablet vomiting #10 tabs hydrocodone 5 mg-acetaminophen 325 1 tab PO Q6H PRN pain #10 tabs 07/24/21 mg tablet ondansetron 4 mg disintegrating 4 mg PO Q8H PRN nausea and 07/24/21 tablet vomiting #10 tabs promethazine 25 mg tablet 12.5 mg PO Q6HR PRN Nausea #20 tabs 07/27/21 metoclopramide HCl 10 mg tablet 10 mg PO Q6H PRN nausea and 03/03/22 (Reglan) vomiting #20 tabs promethazine 25 mg rectal 25 mg NE Q6H PRN nausea and 03/03/22 suppository vomiting #12 ea promethazine 25 mg tablet 25 mg PO TID PRN nausea and 04/20/22 vomiting #20 tabs Allergies Allergy/AdvReac Type Severity Reaction Status Date / Time Iodinated Contrast Media Allergy Intermediate Verified 03/06/22 10:11 shellfish derived Allergy Intermediate Verified 03/06/22 10:11 [SHELLFISH DERIVED] codeine [CODEINE] Allergy Unknown Verified 03/06/22 10:11 Penicillins [PENICILLINS] Allergy Unknown Verified 03/06/22 10:11 Tetracyclines [TETRACYCLINES] Allergy Unknown Verified 03/06/22 10:11 Patient History Medical History (Updated 04/20/22 @ 14:59 by Alyssa Fernández MD) Cyclic vomiting syndrome Migraine UTI (urinary tract infection) Surgical History Status post cholecystectomy Status post tubal ligation Social History household members: spouse Smoking Status: Never smoker Smoking Status: Never smoker alcohol intake frequency: holidays/special occasions only Substance Use Type: marijuana Exam Initial Vital Signs Initial Vital Signs: Vital Signs Pulse Rate 83 04/20/22 09:53 Pulse Oximetry 98 04/20/22 09:53 General: Severe retching to the point she is having difficulty speaking HEENT: Moist mucous membranes, normal sclera with reactive pupils, Respiratory: Lungs are clear to auscultation, no wheezing no rales no rhonchi. Full and symmetrical air movement Cardiac: Regular rate and rhythm no murmurs no bruits Abdomen: Soft, nontender, good bowel tones, no flank pain Skin: Flushed but, no rashes Neurologic: Grossly neurologically intact with no obvious asymmetries or abnormalities Extremities: No trauma, well perfused Psych: Cooperative, appropriate insight and utterly miserable with the severity of the retching Course Orders Ordered: ED Orders 04/20/22 10:03 Complete Blood Count AUTO DIFF Stat Comprehensive Metabolic Panel Stat Lipase Stat Magnesium Stat Troponin I Stat 04/20/22 10:13 Urinalysis and Microscopic Stat Discontinued Medications Diphenhydramine HCl (Diphenhydramine 50 Mg/Ml Vial) 25 mg IV NOW ONE Stop: 04/20/22 10:13 Last Admin: 04/20/22 10:31 Dose: 25 mg Documented By: JED Haloperidol (Haloperidol 5 Mg/Ml Vial) 2 mg IV NOW ONE Stop: 04/20/22 10:13 Last Admin: 04/20/22 10:32 Dose: 2 mg Documented By: JED Hydromorphone HCl (Hydromorphone 1 Mg Inj) 1 mg IV NOW ONE Stop: 04/20/22 10:13 Last Admin: 04/20/22 10:31 Dose: 1 mg Documented By: JED Sodium Chloride (Normal Saline 0.9%) 1,000 mls @ 1,000 mls/hr IV BOLUS ONE Stop: 04/20/22 11:11 Last Infusion: 04/20/22 12:59 Dose: 0 mls/hr Documented By: Admin: 04/20/22 10:30 Dose: 1,000 mls/hr Documented By: JED Sodium Chloride (Normal Saline 0.9%) 1,000 mls @ 1,000 mls/hr IV BOLUS ONE Stop: 04/20/22 15:49 Last Infusion: 04/20/22 16:15 Dose: 0 mls/hr Documented By: Admin: 04/20/22 14:55 Dose: 1,000 mls/hr Documented By: JED Vital Signs Vital signs: Vital Signs - 8 hr 04/20/22 10:05 04/20/22 10:00 04/20/22 10:12 Temperature 97.7 F Pulse Rate 114 H 93 H 77 Respiratory Rate 20 Blood Pressure 184/81 H Pulse Oximetry 98 99 94 Oxygen Delivery Method Room Air 04/20/22 10:12 04/20/22 10:30 04/20/22 11:00 Temperature Pulse Rate 82 85 Respiratory Rate Blood Pressure 184/81 H Pulse Oximetry 98 96 Oxygen Delivery Method 04/20/22 11:22 04/20/22 11:22 04/20/22 11:30 Temperature Pulse Rate 100 H 69 Respiratory Rate Blood Pressure 114/63 Pulse Oximetry 97 96 Oxygen Delivery Method 04/20/22 12:00 04/20/22 12:30 04/20/22 13:00 Temperature Pulse Rate 78 81 72 Respiratory Rate Blood Pressure Pulse Oximetry 93 93 97 Oxygen Delivery Method 04/20/22 13:30 04/20/22 14:00 04/20/22 14:30 Temperature Pulse Rate 81 90 83 Respiratory Rate Blood Pressure Pulse Oximetry 93 93 93 Oxygen Delivery Method 04/20/22 15:00 04/20/22 15:30 04/20/22 16:00 Temperature Pulse Rate 88 82 89 Respiratory Rate Blood Pressure Pulse Oximetry 95 95 95 Oxygen Delivery Method 04/20/22 16:30 Temperature Pulse Rate 85 Respiratory Rate Blood Pressure Pulse Oximetry 98 Oxygen Delivery Method MDM - Nausea/Vomiting/Diarrhea Lab Data Result diagrams: 04/20/22 10:03 04/20/22 10:03 Labs: Lab Results 04/20/22 04/20/22 Range/Units 10:03 10:03 WBC 13.4 H (4.5-11.0) X10^3/uL RBC 5.30 H (4.0-5.2) X10^6/uL Hgb 16.0 (12.0-16.0) g/dL Hct 46.7 H (36-46) % MCV 88.0 (80-100) fL MCH 30.1 (26-34) PG MCHC 34.2 (30-36) % RDW 13.5 (11.6-14.8) % Plt Count 295 (150-400) X10^3/uL Neut % (Auto) 67.8 (50-75) % Lymph % (Auto) 25.7 (25-40) % [place] % (Auto) 4.9 (3-14) % Eos % (Auto) 0.9 L (2-4) % Baso % (Auto) 0.7 (0-2) % Neut # (Auto) 9100 H (8842-0720) /uL Lymph # (Auto) 3500 (9596-2127) /uL [place] # (Auto) 700 (0-900) /uL Eos # (Auto) 100 (0-450) /uL Baso # (Auto) 100 (0-100) /uL Sodium 144 (137-145) mmol/L Potassium 3.4 (3.4-5.1) mmol/L Chloride 109 H (98-107) mmol/L Carbon Dioxide 21 L (22-32) mmol/L BUN 9 (7-17) mg/dL Creatinine 0.81 (0.52-1.04) mg/dL Estimated GFR > 60 (>60) mL/min BUN/Creatinine Ratio 11.1 (6-22) Glucose 132 H (70-100) mg/dL Calcium 10.0 (8.4-10.2) mg/dL Magnesium 2.2 (1.6-2.3) mg/dL Total Bilirubin 0.6 (0.2-1.3) mg/dL AST 22 (14-36) IU/L ALT 24 (<35) IU/L Alkaline Phosphatase 135 H (38-126) U/L Troponin I < 0.012 (0.01-0.034) ng/mL Total Protein 8.5 H (6.3-8.2) g/dL Albumin 5.0 (3.5-5.0) g/dL Globulin 3.5 (1.7-4.1) g/dL Albumin/Globulin Ratio 1.4 (1.0-2.8) Lipase 159 (23-300) U/L MDM Narrative Medical decision making narrative: MDM CC: Severe retching, dry heaving since 8:00 p.m. last night Complicating co-morbidities: History of cyclic vomiting, post cholecystectomy a number years ago, diabetes Corroborating data: Data collected from: patient, Medical records reviewed: Hospitalization for similar presentation from July of 2021 is reviewed Differential considered: Cyclic vomiting, gastroparesis from diabetes, cannabinoid hyperemesis syndrome, bowel obstruction, abdominal obstructing mass, gastroenteritis, intra-abdominal infection Exam documented above, pertinent findings include: Violent retching with relatively benign exam Lab Test results independently reviewed as above. Pertinent findings: Slightly elevated white blood cell count of 13.4 with normal differential, likely secondary to demargination from the severity of her retching. Chemistries: Essentially unremarkable Treatments: Patient is given a L of fluid, IV Zofran, a mg of Dilaudid 25 mg of Benadryl and 2 mg of IV Haldol. Within 20 minutes retching was controlled and within an hour she is sleeping soundly and comfortably with normal vital signs. Re-evaluations: 3pm still sleeping comfortably. A 2 L of fluid will be given and will wake her after this for re-evaluation Discussion: 56-year-old woman with recurrent episodes of cyclic vomiting. Recurrent episode today. Resolved with treatments as listed above. She is feeling significantly better. We talked about options to avoid escalating symptoms. She currently has Zofran orally and Phenergan suppositories at home. Unfortunately she was at work today when symptoms started he did not have the Phenergan suppositories. She noted that she was somewhat nauseated last night. Suggested that perhaps Phenergan pills when she is having milder symptoms such as she noticed last night might prevent progression to the dramatic pain and retching that she experienced today. She is more than willing to consider this. There is no evidence of obstruction, surgical abdomen or infection. She is significantly improved. Will go ahead and give her a prescription for oral Phenergan to use needed and she has appropriate follow-up scheduled. Diagnosis: Cyclic vomiting Disposition: see below, along with detailed discharge instructions that have been reviewed with patient as well as indications for ED re-evaluation and additional outpatient follow up Discharge Plan Departure Patient Disposition: Home Clinical Impression: Cyclic vomiting syndrome Instructions: DI for Cyclic Vomiting Syndrome-Adult Activity Restrictions/Additional Instructions: Thank you for coming in today I am so sorry that you are suffering so much with this cyclic vomiting. Today, you are given 2 L of fluid, Zofran, 2 mg of IV Haldol, 25 mg of IV Benadryl, 1 mg of Dilaudid. This seemed to resolve your symptoms. I am going to give you a prescription for oral Phenergan. Perhaps if you are able to use this prior to symptoms becoming a severe as they were this morning we could prevent getting quite this bad. Please keep all of your scheduled follow-up appointments with your providers and if you have worsening symptoms, please feel free to return to the ER Prescriptions: New promethazine 25 mg tablet 25 mg PO TID PRN (Reason: nausea and vomiting) Qty: 20 0RF No Action ondansetron 4 mg tablet,disintegrating 4 mg PO Q6-8H PRN (Reason: nausea and vomiting) Qty: 10 0RF hydrocodone-acetaminophen 5-325 mg tablet 1 tab PO Q6H PRN (Reason: pain) Qty: 10 0RF ondansetron 4 mg tablet,disintegrating 4 mg PO Q8H PRN (Reason: nausea and vomiting) Qty: 10 0RF metformin 500 mg tablet 500 mg PO DAILY Label Comments: take 1 tablet by mouth EVERY EVENING WITH DINNER metoprolol succinate 50 mg PO DAILY promethazine 25 mg Tablet 12.5 mg PO Q6HR PRN (Reason: Nausea) Qty: 20 0RF promethazine 25 mg suppository 25 mg NE Q6H PRN (Reason: nausea and vomiting) Qty: 12 0RF metoclopramide HCl [Reglan] 10 mg tablet 10 mg PO Q6H PRN (Reason: nausea and vomiting) Qty: 20 0RF Referrals: Lynda Sawant MD [Primary Care Provider] - Stand Alone Forms: Patient Portal/API
[2022-04-20 18:33] LABS: Appearance Urine UA CLEAR; Bilirubin Urine UA NEGATIVE (NEGATIVE); Color Urine UA YELLOW; Glucose Urine UA NEGATIVE (Negative); Ketones Urine UA TRACE (NEGATIVE); Leukocyte Esterase Urine UA NEGATIVE (NEGATIVE); Nitrite Urine UA NEGATIVE (Negative); Occult Blood Urine UA NEGATIVE (Negative); Protein Urine UA NEGATIVE (Negative); Specific Gravity Urine UA 1.015 (1.000-1.035); Urobilinogen Urine UA 0.2 E.U./dL (0.2)
[2022-04-20 18:37] LABS: pH Urine UA 6.5 (4.5-8.0)
[2022-04-20 18:47] LABS: Bacteria Urine Occasional (0-1); Culture Indicated Urine Cult Not Indicated; Mucus Urine 2+ (Negative); RBC Urine 1-5/HPF (0-5/HPF); Squamous Epithelial Cell Urine 0-1 /HPF (0-5/HPF); Transitional Epi Cells Urine 0-1/HPF (0-5/HPF); WBC Urine 1-5/HPF (0-5/HPF)
== END 2022-04-20 18:30 | disposition home or self-care (01) ==
PROVIDERS: Emergency Provider Emergency Medicine; PCP Internal Medicine Geriatric Medicine
DX: R11.15 Cyclical vomiting syndrome unrelated to migraine (principal); Z79.899 Other long term (current) drug therapy
CPT/HCPCS: 36415; 80053; 81001; 81003; 83690; 83735; 84484; 85025; 96361; 96374; 96375; 99284; J1170; J1200; J1630; J2405

== ENCOUNTER 2022-06-04 18:32 | Emergency (ER) | payer OTHER, SELFPAY ==
[2021-07-25 16:07] VITALS: BMI 34.2
[2022-06-04 18:37] VITALS: BP 178/101; PULSE 106; RESP 16; TEMP 36.7; O2SAT 96; BMI 31.3
[2022-06-04] MEDS: ONDANSETRON 4 MG/2 ML INJ IV (18:45)
[2022-06-04 18:58] LABS: Hematocrit 46.3 % (36-46); Hemoglobin 15.6 g/dL (12.0-16.0); Mean Corpuscular HGB Conc 33.6 % (30-36); Mean Corpuscular Hemoglobin 29.2 PG (26-34); Mean Corpuscular Volume 86.9 fL (80-100); Platelet Count 342 X10^3/uL (150-400); Red Blood Cell Count 5.33 X10^6/uL (4.0-5.2); Red Cell Distribution Width 13.3 % (11.6-14.8); White Blood Cell Count 29.2 X10^3/uL (4.5-11.0)
[2022-06-04 19:04] LABS: Add Manual Diff / Slide Review YES
[2022-06-04 19:11] LABS: Alanine Aminotransferase 29 IU/L (<35); Albumin Globulin Ratio 1.4 (1.0-2.8); Alkaline Phosphatase 115 U/L (38-126); Aspartate Aminotransferase 22 IU/L (14-36); BUN Creatinine Ratio 22.4 (6-22); Bilirubin Total 1.7 mg/dL (0.2-1.3); Blood Urea Nitrogen 17 mg/dL (7-17); Calcium 9.9 mg/dL (8.4-10.2); Carbon Dioxide 18 mmol/L (22-32); Chloride 100 mmol/L (98-107); Estimated Glomerular Filt Rate > 60 mL/min (>60); Globulin 3.6 g/dL (1.7-4.1); Glucose 161 mg/dL (70-100); HEMOLYSIS 17 (0-50); Lipase 95 U/L (23-300); Potassium 3.3 mmol/L (3.4-5.1); Sodium 136 mmol/L (137-145); Total Protein 8.6 g/dL (6.3-8.2)
[2022-06-04 19:13] LABS: Appearance Urine UA CLEAR; Color Urine UA YELLOW; Glucose Urine UA NEGATIVE (Negative); Ketones Urine UA 1+ (NEGATIVE); Leukocyte Esterase Urine UA NEGATIVE (NEGATIVE); Nitrite Urine UA NEGATIVE (Negative); Occult Blood Urine UA 2+ (Negative); Protein Urine UA 2+ (Negative); Specific Gravity Urine UA >=1.030 (1.000-1.035); Urobilinogen Urine UA 0.2 E.U./dL (0.2)
[2022-06-04 19:15] LABS: pH Urine UA 5.5 (4.5-8.0)
[2022-06-04 19:18] LABS: Bilirubin Urine UA Negative (NEGATIVE)
[2022-06-04 19:25] LABS: Amorphous Sediment Urine 1+; Bacteria Urine Few (2-10); Culture Indicated Urine Cult Not Indicated; Hyaline Casts Urine 0-1/LPF; RBC Urine 0-1/HPF (0-5/HPF); Squamous Epithelial Cell Urine None Seen (0-5/HPF); WBC Urine 0-1/HPF (0-5/HPF)
[2022-06-04 19:53] LABS: Neutrophils Absolute Manual 25404 /uL (3000-5900); Total Cells Counted 100
[2022-06-04 19:54] LABS: RBC Morphology Normal Morphology
--- NOTE | 2022-06-04 19:54 | DI.RAD.S_ITS ---
PROCEDURE: XR CHEST 1V INDICATIONS: Vomiting, pain between shoulder blades TECHNIQUE: One view of the chest was acquired. COMPARISON: [facility], CR, XR CHEST 1V, 07/26/2021, 10:18. FINDINGS: Surgical changes and devices: None. Lungs and pleura: Lungs are clear. No pleural effusions or pneumothorax. Mediastinum: Mediastinal contours appear normal. Heart size is normal. Bones and chest wall: No suspicious bony lesions. Overlying soft tissues appear unremarkable. IMPRESSION: 1. No acute cardiopulmonary disease. Dictated by: Kirit Reynoso M.D. on 06/04/2022 at 20:26 Approved by: Kirit Reynoso M.D. on 06/04/2022 at 20:36
[2022-06-04] MEDS: SODIUM CHLORIDE 0.9% 1,000 ML 1000 ML IV (20:09)
[2022-06-04] MEDS: LORazepam 2 MG/ML INJ 1 MG IV (20:10)
--- NOTE | 2022-06-04 20:11 | ED_ITS ---
HPI - Nausea/Vomiting/Diarrhea General Chief complaint: Nausea/Vomiting/Diarrhea Stated complaint: Vomiting Time Seen by Provider: 06/04/22 20:11 Source: patient Mode of arrival: Ambulatory Limitations: no limitations History of Present Illness HPI Narrative: Patient is a 56-year-old female with a history of hyperemesis. She is a uif-knovgqy-zhikabwcs diabetic. Has multiple anti nausea medications at home without any improvement. She is also having heartburn and abdominal pain. No fevers. She is had multiple episodes of this in the past requiring evaluation in the emergency department Related Data Home Medications Medication Instructions Recorded Confirmed metformin 500 mg tablet 500 mg PO DAILY 07/25/21 07/25/21 metoprolol succinate 50 mg PO DAILY 07/25/21 07/25/21 Previous Rx's Medication Instructions Recorded ondansetron 4 mg disintegrating 4 mg PO Q6-8H PRN nausea and 05/01/18 tablet vomiting #10 tabs hydrocodone 5 mg-acetaminophen 325 1 tab PO Q6H PRN pain #10 tabs 07/24/21 mg tablet ondansetron 4 mg disintegrating 4 mg PO Q8H PRN nausea and 07/24/21 tablet vomiting #10 tabs promethazine 25 mg tablet 12.5 mg PO Q6HR PRN Nausea #20 tabs 07/27/21 metoclopramide HCl 10 mg tablet 10 mg PO Q6H PRN nausea and 03/03/22 (Reglan) vomiting #20 tabs promethazine 25 mg rectal 25 mg [place] Q6H PRN nausea and 03/03/22 suppository vomiting #12 ea promethazine 25 mg tablet 25 mg PO TID PRN nausea and 04/20/22 vomiting #20 tabs Allergies Allergy/AdvReac Type Severity Reaction Status Date / Time Iodinated Contrast Media Allergy Intermediate Verified 06/04/22 18:37 shellfish derived Allergy Intermediate Verified 06/04/22 18:37 [SHELLFISH DERIVED] codeine [CODEINE] Allergy Unknown Verified 06/04/22 18:37 Penicillins [PENICILLINS] Allergy Unknown Verified 06/04/22 18:37 Tetracyclines [TETRACYCLINES] Allergy Unknown Verified 06/04/22 18:37 Review of Systems Constitutional Constitutional: Reports system reviewed and no additional complaints, except as documented Gastrointestinal Gastrointestinal: Reports system reviewed and no additional complaints, except as documented Genitourinary Genitourinary: Reports system reviewed and no additional complaints, except as documented Integumentary/Breasts Skin/Breast: Reports system reviewed and no additional complaints, except as documented Neurologic Neurologic: Reports system reviewed and no additional complaints, except as documented Patient History Medical History Cyclic vomiting syndrome Migraine UTI (urinary tract infection) Surgical History Status post cholecystectomy Status post tubal ligation Social History household members: spouse Smoking Status: Never smoker Smoking Status: Never smoker alcohol intake frequency: holidays/special occasions only Substance Use Type: marijuana Exam Initial Vital Signs Initial Vital Signs: Vital Signs Temperature 98.1 F 06/04/22 18:37 Pulse Rate 106 H 06/04/22 18:37 Respiratory Rate 16 06/04/22 18:37 Blood Pressure 178/101 H 06/04/22 18:37 Pulse Oximetry 96 06/04/22 18:37 Oxygen Delivery Method 06/04/22 18:37 Const General: cooperative and No ill appearing HENMT Head: normal to inspection and normocephalic Resp Effort & Inspection: normal respiratory effort Auscultation: clear to auscultation bilaterally Cardio Rate: regular rate Rhythm: regular rhythm GI Inspection: normal to inspection Neuro General: patient alert, patient awake and moves all extremities Course Orders Ordered: Discontinued Medications Calcium Carbonate (Calcium Carbonate 500 Mg Tab) 1,000 mg PO NOW ONE Stop: 06/04/22 22:40 Last Admin: 06/04/22 23:12 Dose: 1,000 mg Documented By: RB Haloperidol (Haloperidol 5 Mg/Ml Vial) 2 mg IV NOW ONE Stop: 06/04/22 23:28 Last Admin: 06/04/22 23:32 Dose: 2 mg Documented By: RB Sodium Chloride (Normal Saline 0.9%) 1,000 mls @ 1,000 mls/hr IV BOLUS ONE Stop: 06/04/22 21:02 Last Infusion: 06/04/22 21:46 Dose: 0 mls/hr Documented By: Admin: 06/04/22 20:09 Dose: 1,000 mls/hr Documented By: JED Lorazepam (Lorazepam 2 Mg/Ml Inj) 1 mg IV NOW ONE Stop: 06/04/22 20:04 Last Admin: 06/04/22 20:10 Dose: 1 mg Documented By: JED Metoclopramide HCl (Metoclopramide 10 Mg/2 Ml Inj) 10 mg IV NOW ONE Stop: 06/04/22 23:25 Last Admin: 06/04/22 23:29 Dose: Not Given Documented By: LIT Ondansetron HCl (Ondansetron 4 Mg/2 Ml Inj) 4 mg IV NOW PRN PRN Reason: Nausea And Vomiting Last Admin: 06/04/22 18:45 Dose: 4 mg Documented By: JED Pantoprazole Sodium (Pantoprazole 40 Mg Vial) 40 mg IV NOW ONE Stop: 06/04/22 22:40 Last Admin: 06/04/22 23:11 Dose: 40 mg Documented By: LIT Vital Signs Vital signs: Vital Signs - 8 hr 06/04/22 21:36 06/04/22 23:15 06/05/22 01:07 Pulse Rate 99 H 80 105 H Respiratory Rate 18 16 17 Blood Pressure 138/74 184/99 H 117/78 Pulse Oximetry 94 98 98 Oxygen Delivery Method Nasal Cannula Nasal Cannula Room Air Oxygen Flow Rate 3 3 MDM - Nausea/Vomiting/Diarrhea Lab Data Attestation: I reviewed the patient's lab results. 06/04/22 18:45 06/04/22 18:45 Labs: Lab Results 06/04/22 06/04/22 06/04/22 Range/Units 18:45 18:45 18:45 WBC 29.2 H (4.5-11.0) X10^3/uL RBC 5.33 H (4.0-5.2) X10^6/uL Hgb 15.6 (12.0-16.0) g/dL Hct 46.3 H (36-46) % MCV 86.9 (80-100) fL MCH 29.2 (26-34) PG MCHC 33.6 (30-36) % RDW 13.3 (11.6-14.8) % Plt Count 342 (150-400) X10^3/uL Neut % (Auto) Not Reportable Lymph % (Auto) Not Reportable [place] % (Auto) Not Reportable Eos % (Auto) Not Reportable Baso % (Auto) Not Reportable Lymph # (Auto) Not Reportable [place] # (Auto) Not Reportable Baso # (Auto) Not Reportable Total Counted 100 Seg Neutrophils % 83.0 H (38-70) % Band Neutrophils % 4.0 (3-7) % Lymphocytes % (Manual) 7.0 L (25-45) % Monocytes % (Manual) 6.0 (2-11) % Neutrophils # (Manual) 17380 H (1545-4871) /uL RBC Morphology Normal morphology Sodium 136 L (137-145) mmol/L Potassium 3.3 L (3.4-5.1) mmol/L Chloride 100 (98-107) mmol/L Carbon Dioxide 18 L (22-32) mmol/L BUN 17 (7-17) mg/dL Creatinine 0.76 (0.52-1.04) mg/dL Estimated GFR > 60 (>60) mL/min BUN/Creatinine Ratio 22.4 H (6-22) Glucose 161 H (70-100) mg/dL Calcium 9.9 (8.4-10.2) mg/dL Total Bilirubin 1.7 H (0.2-1.3) mg/dL AST 22 (14-36) IU/L ALT 29 (<35) IU/L Alkaline Phosphatase 115 (38-126) U/L Total Creatine Kinase (30-135) U/L CK-MB (CK-2) (<2.37) ng/mL CK-MB (CK-2) Rel Index (1.5-5.0) % Troponin I (0.01-0.034) ng/mL Total Protein 8.6 H (6.3-8.2) g/dL Albumin 5.0 (3.5-5.0) g/dL Globulin 3.6 (1.7-4.1) g/dL Albumin/Globulin Ratio 1.4 (1.0-2.8) Lipase 95 (23-300) U/L Urine Color Yellow Urine Appearance Clear Urine pH 5.5 (4.5-8.0) Ur Specific [place] >=1.030 H (1.000-1.035) Urine Protein 2+ H (Negative) Urine Glucose (UA) Negative (Negative) g/dL Urine Ketones 1+ H (NEGATIVE) Urine Occult Blood 2+ H (Negative) Urine Nitrate Negative (Negative) Urine Bilirubin Negative (NEGATIVE) Urine Urobilinogen 0.2 (0.2) E.U./dL Ur Leukocyte Esterase Negative (NEGATIVE) Urine RBC 0-1/hpf (0-5/HPF) Urine WBC 0-1/hpf (0-5/HPF) Ur Squamous Epith Cells None seen (0-5/HPF) Amorphous Sediment 1+ Urine Bacteria Few (2-10) H (None) Hyaline Casts 0-1/lpf (None) Ur Culture Indicated? Cult not indicated 06/04/22 Range/Units 18:45 WBC (4.5-11.0) X10^3/uL RBC (4.0-5.2) X10^6/uL Hgb (12.0-16.0) g/dL Hct (36-46) % MCV (80-100) fL MCH (26-34) PG MCHC (30-36) % RDW (11.6-14.8) % Plt Count (150-400) X10^3/uL Neut % (Auto) Lymph % (Auto) [place] % (Auto) Eos % (Auto) Baso % (Auto) Lymph # (Auto) [place] # (Auto) Baso # (Auto) Total Counted Seg Neutrophils % (38-70) % Band Neutrophils % (3-7) % Lymphocytes % (Manual) (25-45) % Monocytes % (Manual) (2-11) % Neutrophils # (Manual) (8574-9553) /uL RBC Morphology Sodium (137-145) mmol/L Potassium (3.4-5.1) mmol/L Chloride (98-107) mmol/L Carbon Dioxide (22-32) mmol/L BUN (7-17) mg/dL Creatinine (0.52-1.04) mg/dL Estimated GFR (>60) mL/min BUN/Creatinine Ratio (6-22) Glucose (70-100) mg/dL Calcium (8.4-10.2) mg/dL Total Bilirubin (0.2-1.3) mg/dL AST (14-36) IU/L ALT (<35) IU/L Alkaline Phosphatase (38-126) U/L Total Creatine Kinase 140 H (30-135) U/L CK-MB (CK-2) 1.30 (<2.37) ng/mL CK-MB (CK-2) Rel Index 0.9 L (1.5-5.0) % Troponin I < 0.012 (0.01-0.034) ng/mL Total Protein (6.3-8.2) g/dL Albumin (3.5-5.0) g/dL Globulin (1.7-4.1) g/dL Albumin/Globulin Ratio (1.0-2.8) Lipase (23-300) U/L Urine Color Urine Appearance Urine pH (4.5-8.0) Ur Specific [place] (1.000-1.035) Urine Protein (Negative) Urine Glucose (UA) (Negative) g/dL Urine Ketones (NEGATIVE) Urine Occult Blood (Negative) Urine Nitrate (Negative) Urine Bilirubin (NEGATIVE) Urine Urobilinogen (0.2) E.U./dL Ur Leukocyte Esterase (NEGATIVE) Urine RBC (0-5/HPF) Urine WBC (0-5/HPF) Ur Squamous Epith Cells (0-5/HPF) Amorphous Sediment Urine Bacteria (None) Hyaline Casts (None) Ur Culture Indicated? Imaging Data Chest x-ray: Radiologist's Impression: IMPRESSION:? ? 1.? No acute cardiopulmonary disease. ECG Data Attestation: I personally reviewed and interpreted this ECG as follows: Interpretation: Sinus rhythm Ventricular rate 100 Normal axis Normal QRS Normal QTC No ST T wave changes MDM Narrative Medical decision making narrative: Patient has presented in this exact scenario multiple times in the past. She is tried her home medications without any improvement. Initially she was given Zofran and then Ativan. After the Ativan she slept for a significant period of time without any vomiting. After she woke up she was still having heartburn. She was given Tums for this. This improved the heartburn. She then started vomiting once again. Review of her medical record shows that Haldol has worked very well for her in the past she was given 2 mg of Haldol. She slept again when she woke up she was feeling much better. She felt like she could be discharged home. She did have a leukocytosis but I suspect this is because of the vomiting. No indication for antibiotics. No indication for radiologic studies. She was given return precautions. She expressed understanding and agreement. Discharge Plan Departure Patient Disposition: Home Clinical Impression: Acute vomiting Instructions: DI for Vomiting -- Adult Activity Restrictions/Additional Instructions: Recommend that you continue to take all of your medications as directed. Be sure that you are increasing your fluid intake by drinking small amounts over longer periods of time. Return to the emergency department for new or worsening symptoms. Prescriptions: No Action promethazine 25 mg tablet 25 mg PO TID PRN (Reason: nausea and vomiting) Qty: 20 0RF ondansetron 4 mg tablet,disintegrating 4 mg PO Q6-8H PRN (Reason: nausea and vomiting) Qty: 10 0RF hydrocodone-acetaminophen 5-325 mg tablet 1 tab PO Q6H PRN (Reason: pain) Qty: 10 0RF ondansetron 4 mg tablet,disintegrating 4 mg PO Q8H PRN (Reason: nausea and vomiting) Qty: 10 0RF metformin 500 mg tablet 500 mg PO DAILY Label Comments: take 1 tablet by mouth EVERY EVENING WITH DINNER metoprolol succinate 50 mg PO DAILY promethazine 25 mg Tablet 12.5 mg PO Q6HR PRN (Reason: Nausea) Qty: 20 0RF promethazine 25 mg suppository 25 mg [place] Q6H PRN (Reason: nausea and vomiting) Qty: 12 0RF metoclopramide HCl [Reglan] 10 mg tablet 10 mg PO Q6H PRN (Reason: nausea and vomiting) Qty: 20 0RF Referrals: Lynda Sawant MD [Primary Care Provider] - Stand Alone Forms: Patient Portal/API
[2022-06-04 20:19] LABS: Creatine Kinase 140 U/L (30-135)
[2022-06-04 20:50] LABS: Troponin I < 0.012 ng/mL (0.01-0.034)
[2022-06-04 21:34] LABS: CKMB % Relative Index 0.9 % (1.5-5.0)
[2022-06-04 21:36] VITALS: BP 138/74; PULSE 99; RESP 18; O2SAT 94
[2022-06-04] MEDS: PANTOPRAZOLE 40 MG VIAL IV (23:11)
[2022-06-04] MEDS: CALCIUM CARBONATE 500 MG TAB 1000 MG PO (23:12)
[2022-06-04 23:15] VITALS: BP 184/99; PULSE 80; RESP 16; O2SAT 98
[2022-06-04] MEDS: HALOPERIDOL 5 MG/ML VIAL 2 MG IV (23:32)
[2022-06-05 01:07] VITALS: BP 117/78; PULSE 105; RESP 17; O2SAT 98
== END 2022-06-05 01:08 | disposition home or self-care (01) ==
PROVIDERS: Emergency Provider Emergency Medicine; PCP Internal Medicine Geriatric Medicine
DX: R11.10 Vomiting, unspecified (principal); R12 Heartburn; R10.9 Unspecified abdominal pain
CPT/HCPCS: 36415; 71045; 80053; 81001; 82550; 82553; 83690; 84484; 85007; 85025; 87086; 93005; 96361; 96374; 96375; 99284; C9113; J1630; J2060; J2405

== ENCOUNTER 2022-06-05 19:49 | Emergency (ER) | payer OTHER, SELFPAY ==
[2021-07-25 16:07] VITALS: BMI 34.2
[2022-06-05] VITALS (9 sets, daily range): BP systolic 83–184; BP diastolic 44–104; PULSE 60–92; RESP 20; TEMP 36.6; O2SAT 91–99; BMI 31.3
[2022-06-05] MEDS: HALOPERIDOL 5 MG/ML VIAL 2 MG IV ×2 (20:18→21:38)
[2022-06-05 20:34] LABS: Add Manual Diff / Slide Review NO; Basophils Absolute Auto 100 /uL (0-100); Basophils Percent Auto 0.3 % (0-2); Eosinophils Absolute Auto 0 /uL (0-450); Eosinophils Percent Auto 0.1 % (2-4); Hematocrit 45.4 % (36-46); Hemoglobin 15.2 g/dL (12.0-16.0); Lymphocytes Absolute Auto 1800 /uL (1100-4500); Mean Corpuscular HGB Conc 33.4 % (30-36); Mean Corpuscular Hemoglobin 29.5 PG (26-34); Mean Corpuscular Volume 88.1 fL (80-100); Monocytes Absolute Auto 800 /uL (0-900); Monocytes Percent Auto 4.1 % (3-14); Neutrophils Absolute Auto 17000 /uL (1500-7000); Neutrophils Percent Auto 86.5 % (50-75); Platelet Count 271 X10^3/uL (150-400); Red Blood Cell Count 5.15 X10^6/uL (4.0-5.2); Red Cell Distribution Width 13.2 % (11.6-14.8); White Blood Cell Count 19.6 X10^3/uL (4.5-11.0)
[2022-06-05 20:37] LABS: Alanine Aminotransferase 26 IU/L (<35); Albumin 4.6 g/dL (3.5-5.0); Albumin Globulin Ratio 1.4 (1.0-2.8); Alkaline Phosphatase 102 U/L (38-126); Aspartate Aminotransferase 27 IU/L (14-36); BUN Creatinine Ratio 23.5 (6-22); Bilirubin Total 1.4 mg/dL (0.2-1.3); Blood Urea Nitrogen 19 mg/dL (7-17); Carbon Dioxide 21 mmol/L (22-32); Chloride 102 mmol/L (98-107); Estimated Glomerular Filt Rate > 60 mL/min (>60); Globulin 3.2 g/dL (1.7-4.1); Glucose 141 mg/dL (70-100); HEMOLYSIS 42 (0-50); Lipase 94 U/L (23-300); Potassium 3.4 mmol/L (3.4-5.1); Sodium 137 mmol/L (137-145); Total Protein 7.8 g/dL (6.3-8.2)
--- NOTE | 2022-06-05 21:28 | ED_ITS ---
HPI - Nausea/Vomiting/Diarrhea General Chief complaint: Nausea/Vomiting/Diarrhea Stated complaint: Vomiting Time Seen by Provider: 06/05/22 21:09 Source: patient Mode of arrival: Ambulatory Limitations: no limitations History of Present Illness HPI Narrative: Patient is a 56-year-old female [id number] diabetes. Does have a history of hyperemesis. I evaluated her in the emergency department [facility] 24 hours ago for the same symptoms that she presents with this evening. During that prior visit she stated that she did improve with treatment here in the emergency department however when she went home she slept for short period of time but then woke up and started to have abdominal pain and back pain and vomiting. She attempted to try her anti nausea medications at home multiple times without any improvement so she returns to the emergency department today for further evaluation. No fevers. No urinary symptoms. The discomfort that she is having in her abdomen and back is the same that she had last evening. Related Data Home Medications Medication Instructions Recorded Confirmed metformin 500 mg tablet 500 mg PO DAILY 07/25/21 07/25/21 metoprolol succinate 50 mg PO DAILY 07/25/21 07/25/21 Previous Rx's Medication Instructions Recorded ondansetron 4 mg disintegrating 4 mg PO Q6-8H PRN nausea and 05/01/18 tablet vomiting #10 tabs hydrocodone 5 mg-acetaminophen 325 1 tab PO Q6H PRN pain #10 tabs 07/24/21 mg tablet ondansetron 4 mg disintegrating 4 mg PO Q8H PRN nausea and 07/24/21 tablet vomiting #10 tabs promethazine 25 mg tablet 12.5 mg PO Q6HR PRN Nausea #20 tabs 07/27/21 metoclopramide HCl 10 mg tablet 10 mg PO Q6H PRN nausea and 03/03/22 (Reglan) vomiting #20 tabs promethazine 25 mg rectal 25 mg VA Q6H PRN nausea and 03/03/22 suppository vomiting #12 ea promethazine 25 mg tablet 25 mg PO TID PRN nausea and 04/20/22 vomiting #20 tabs metoclopramide HCl 10 mg tablet 10 mg PO Q6H PRN nausea and 06/06/22 (Reglan) vomiting #20 tabs Allergies Allergy/AdvReac Type Severity Reaction Status Date / Time Iodinated Contrast Media Allergy Intermediate Verified 02/23/23 20:06 shellfish derived Allergy Intermediate Verified 06/05/22 20:06 [SHELLFISH DERIVED] codeine [CODEINE] Allergy Unknown Verified 06/05/22 20:06 Penicillins [PENICILLINS] Allergy Unknown Verified 06/05/22 20:06 Tetracyclines [TETRACYCLINES] Allergy Unknown Verified 06/05/22 20:06 Review of Systems Constitutional Constitutional: Reports system reviewed and no additional complaints, except as documented Cardiovascular Cardiovascular: Reports system reviewed and no additional complaints, except as documented Respiratory Respiratory: Reports system reviewed and no additional complaints, except as documented Gastrointestinal Gastrointestinal: Reports system reviewed and no additional complaints, except as documented Genitourinary Genitourinary: Reports system reviewed and no additional complaints, except as documented Integumentary/Breasts Skin/Breast: Reports system reviewed and no additional complaints, except as documented Neurologic Neurologic: Reports system reviewed and no additional complaints, except as documented Hematologic/Lymphatic On Anticoagulants: No Patient History Medical History (Updated 06/06/22 @ 00:54 by Abner Marinelli DO) Cyclic vomiting syndrome Migraine UTI (urinary tract infection) Surgical History Status post cholecystectomy Status post tubal ligation Social History household members: spouse Smoking Status: Never smoker Smoking Status: Never smoker alcohol intake frequency: holidays/special occasions only Substance Use Type: marijuana Exam Initial Vital Signs Initial Vital Signs: Vital Signs Temperature 97.8 F 06/05/22 20:02 Pulse Rate 80 06/05/22 20:02 Respiratory Rate 20 06/05/22 20:02 Blood Pressure 183/96 H 06/05/22 20:02 Pulse Oximetry 97 06/05/22 20:02 Oxygen Delivery Method 06/05/22 20:02 HENMT Head: normal to inspection and normocephalic Resp Effort & Inspection: normal respiratory effort Cardio Rate: regular rate GI Inspection: normal to inspection Palpation: tender (Diffuse tenderness) Neuro General: patient alert, patient awake and moves all extremities Extrem General: normal to inspection and capillary refill normal Course Orders Ordered: ED Orders 06/05/22 20:06 EKG-12 Lead Stat 06/05/22 20:10 Complete Blood Count AUTO DIFF Stat Comprehensive Metabolic Panel Stat Lipase Stat Troponin & CK Cardiac Panel Stat 06/05/22 21:29 EKG-12 Lead Stat Sodium Chloride (Normal Saline 0.9%) 1,000 mls @ 1,000 mls/hr IV BOLUS ONE Stop: 06/06/22 00:50 Last Admin: 06/06/22 00:26 Dose: 1,000 mls/hr Documented By: ELLEN Discontinued Medications Haloperidol (Haloperidol 5 Mg/Ml Vial) 2 mg IV NOW ONE Stop: 06/05/22 20:16 Last Admin: 06/05/22 20:18 Dose: 2 mg Documented By: JED Haloperidol (Haloperidol 5 Mg/Ml Vial) 2 mg IV NOW ONE Stop: 06/05/22 21:30 Last Admin: 06/05/22 21:38 Dose: 2 mg Documented By: ELLEN Hydromorphone HCl (Hydromorphone 0.5 Mg Inj) 0.5 mg IV NOW ONE Stop: 06/05/22 22:32 Last Admin: 06/05/22 22:38 Dose: 0.5 mg Documented By: ELLEN Sodium Chloride (Normal Saline 0.9%) 1,000 mls @ 1,000 mls/hr IV BOLUS ONE Stop: 06/05/22 22:28 Last Infusion: 06/05/22 23:52 Dose: 0 mls/hr Documented By: Admin: 06/05/22 21:36 Dose: 1,000 mls/hr Documented By: ELLEN Ondansetron HCl (Ondansetron 4 Mg Odt) 4 mg PO NOW PRN PRN Reason: Nausea And Vomiting Ondansetron HCl (Ondansetron 4 Mg/2 Ml Inj) 4 mg IV NOW PRN PRN Reason: Nausea And Vomiting Vital Signs Vital signs: Vital Signs - 8 hr 06/05/22 20:02 Temperature 97.8 F Pulse Rate 80 Respiratory Rate 20 Blood Pressure 183/96 H Pulse Oximetry 97 Oxygen Delivery Method Room Air MDM - Nausea/Vomiting/Diarrhea Medical Records Attestation: I reviewed the patient's medical records. Lab Data Attestation: I reviewed the patient's lab results. 06/05/22 20:10 06/05/22 20:10 Labs: Lab Results 06/05/22 06/05/22 06/05/22 Range/Units 20:10 20:10 20:10 WBC 19.6 H (4.5-11.0) X10^3/uL RBC 5.15 (4.0-5.2) X10^6/uL Hgb 15.2 (12.0-16.0) g/dL Hct 45.4 (36-46) % MCV 88.1 (80-100) fL MCH 29.5 (26-34) PG MCHC 33.4 (30-36) % RDW 13.2 (11.6-14.8) % Plt Count 271 (150-400) X10^3/uL Neut % (Auto) 86.5 H (50-75) % Lymph % (Auto) 9.0 L (25-40) % [place] % (Auto) 4.1 (3-14) % Eos % (Auto) 0.1 L (2-4) % Baso % (Auto) 0.3 (0-2) % Neut # (Auto) 90410 H (7523-1430) /uL Lymph # (Auto) 1800 (2032-8181) /uL [place] # (Auto) 800 (0-900) /uL Eos # (Auto) 0 (0-450) /uL Baso # (Auto) 100 (0-100) /uL Sodium 137 (137-145) mmol/L Potassium 3.4 (3.4-5.1) mmol/L Chloride 102 (98-107) mmol/L Carbon Dioxide 21 L (22-32) mmol/L BUN 19 H (7-17) mg/dL Creatinine 0.81 (0.52-1.04) mg/dL Estimated GFR > 60 (>60) mL/min BUN/Creatinine Ratio 23.5 H (6-22) Glucose 141 H (70-100) mg/dL Calcium 9.0 (8.4-10.2) mg/dL Total Bilirubin 1.4 H (0.2-1.3) mg/dL AST 27 (14-36) IU/L ALT 26 (<35) IU/L Alkaline Phosphatase 102 (38-126) U/L Total Creatine Kinase 129 (30-135) U/L CK-MB (CK-2) 1.13 (<2.37) ng/mL CK-MB (CK-2) Rel Index 0.9 L (1.5-5.0) % Troponin I < 0.012 (0.01-0.034) ng/mL Total Protein 7.8 (6.3-8.2) g/dL Albumin 4.6 (3.5-5.0) g/dL Globulin 3.2 (1.7-4.1) g/dL Albumin/Globulin Ratio 1.4 (1.0-2.8) Lipase 94 (23-300) U/L ECG Data Attestation: I personally reviewed and interpreted this ECG as follows: Interpretation: Sinus rhythm Ventricular rate is 71 Normal axis Normal QRS Normal QTC No ST T wave changes MDM Narrative Medical decision making narrative: Patient presents today with the same symptoms that she was seen here in the emergency department for 24 hours ago and for which she is been seen in the emergency department multiple times in the past. Repeat of workup here in the emergency department does show an improvement of her leukocytosis. I continue to think that this is related to stress given all of the vomiting and not a specific intra-abdominal surgical issue. She has a relatively benign abdominal exam but does have upper abdominal tenderness for which she had yesterday. This improved with pain medication. Her EKG and troponin are negative. Low suspicion for ACS. Her labs also were not consistent with pancreatitis. After 2 aliquots of 2 mg Haldol and Dilaudid the patient reports that she feels much better and actually feels better now than what she did last evening before she was discharged. I do feel that we can hold on further workup for now discharge patient home. She was given return precautions. She expressed understanding and agreement. Discharge Plan Departure Patient Disposition: Home Clinical Impression: Hyperemesis Instructions: DI for Vomiting -- Adult Activity Restrictions/Additional Instructions: I do recommend that you eat a bland diet and try to increase your fluid intake. Contact your primary doctor for a follow-up. Return to the emergency department for any new symptoms. Prescriptions: New metoclopramide HCl [Reglan] 10 mg tablet 10 mg PO Q6H PRN (Reason: nausea and vomiting) Qty: 20 0RF No Action promethazine 25 mg tablet 25 mg PO TID PRN (Reason: nausea and vomiting) Qty: 20 0RF ondansetron 4 mg tablet,disintegrating 4 mg PO Q6-8H PRN (Reason: nausea and vomiting) Qty: 10 0RF hydrocodone-acetaminophen 5-325 mg tablet 1 tab PO Q6H PRN (Reason: pain) Qty: 10 0RF ondansetron 4 mg tablet,disintegrating 4 mg PO Q8H PRN (Reason: nausea and vomiting) Qty: 10 0RF metformin 500 mg tablet 500 mg PO DAILY Label Comments: take 1 tablet by mouth EVERY EVENING WITH DINNER metoprolol succinate 50 mg PO DAILY promethazine 25 mg Tablet 12.5 mg PO Q6HR PRN (Reason: Nausea) Qty: 20 0RF promethazine 25 mg suppository 25 mg VA Q6H PRN (Reason: nausea and vomiting) Qty: 12 0RF metoclopramide HCl [Reglan] 10 mg tablet 10 mg PO Q6H PRN (Reason: nausea and vomiting) Qty: 20 0RF Referrals: Lynda Sawant MD [Primary Care Provider] - Stand Alone Forms: Patient Portal/API
[2022-06-05] MEDS: SODIUM CHLORIDE 0.9% 1,000 ML 1000 ML IV (21:36)
[2022-06-05 21:51] LABS: Creatine Kinase 129 U/L (30-135)
[2022-06-05 22:04] LABS: Troponin I < 0.012 ng/mL (0.01-0.034)
[2022-06-05 22:06] LABS: CKMB % Relative Index 0.9 % (1.5-5.0); Creatine Kinase MB 1.13 ng/mL (<2.37)
[2022-06-05] MEDS: HYDROMORPHONE 0.5 MG INJ IV (22:38)
[2022-06-06] VITALS: BP 94/51; PULSE 72; O2SAT 94
[2022-06-06 00:15] VITALS: BP 99/55; PULSE 75; O2SAT 93
[2022-06-06] MEDS: SODIUM CHLORIDE 0.9% 1,000 ML 1000 ML IV (00:26)
[2022-06-06 00:30] VITALS: BP 93/52; PULSE 78; O2SAT 94
[2022-06-06 00:45] VITALS: BP 92/55; PULSE 76; O2SAT 94
== END 2022-06-06 01:16 | disposition home or self-care (01) ==
PROVIDERS: Emergency Provider Emergency Medicine; PCP Internal Medicine Geriatric Medicine
DX: R11.10 Vomiting, unspecified (principal)
CPT/HCPCS: 36415; 80053; 82550; 82553; 83690; 84484; 85025; 93005; 96361; 96374; 96375; 96376; 99284; J1170; J1630